=== PATIENT | female | born 1935 | race Caucasian/White ===

== ENCOUNTER 2023-01-09 19:57 | Inpatient (IN) | payer MEDICARE ==
[2023-01-09] MEDS ORDERED: IPRATROPIUM-ALBUTEROL 3 ML NEB INHALATION PRN (20:13)
[2023-01-09] MEDS ORDERED: ACETAMINOPHEN TAB 325 MG TAB PO PRN (20:13)
[2023-01-09] MEDS ORDERED: HYDROcodone/APAP 5-325MG 1 EACH TAB PO PRN (20:13)
[2023-01-09] MEDS ORDERED: NALOXONE 0.4 MG/ML 1 ML VIAL IVP PRN (20:13)
--- NOTE | 2023-01-09 20:20 | ED ---
General Adult HPI - General Chief complaint: Shortness of Breath Stated complaint: SOB Time Seen by Provider: 01/09/23 20:01 Source: patient, EMS, RN notes reviewed Mode of arrival: EMS Limitations: no limitations - History of Present Illness Initial comments: Patient is a pleasant 7 year old female presenting to the emergency department with concerns for shortness of breath. Onset of symptoms was a couple weeks ago. Patient did have a fall a couple of weeks ago and was diagnosed for fractures. Patient states she went back to the hospital today fractures. Patient states dyspnea has been persistent. No new fall or injury. Patient is very hard of hearing and is a poor historian. Review of Systems ROS Statement: Those systems with pertinent positive or pertinent negative responses have been documented in the HPI. ROS Other: All systems not noted in ROS Statement are negative. Constitutional: Denies: fever Eyes: Denies: eye pain ENT: Denies: ear pain Respiratory: Reports: as per HPI, dyspnea. Denies: cough Cardiovascular: Reports: other (Patient states she does have some left-sided discomfort from the fall) Endocrine: Denies: fatigue Gastrointestinal: Denies: abdominal pain Genitourinary: Denies: dysuria Musculoskeletal: Denies: back pain Skin: Denies: rash Neurological: Denies: weakness Past Medical History Past Medical History: COPD, Diabetes Mellitus, Thyroid Disorder Past Surgical History: Adenoidectomy, Cholecystectomy, Hysterectomy Past Psychological History: No Psychological Hx Reported Smoking Status: Never smoker Past Alcohol Use History: None Reported Past Drug Use History: None Reported General Exam Limitations: no limitations General appearance: alert, in no apparent distress Head exam: Present: atraumatic, normocephalic Eye exam: Present: normal appearance Neck exam: Present: normal inspection. Absent: tenderness Respiratory exam: Present: wheezes, decreased breath sounds Cardiovascular Exam: Present: regular rate, normal rhythm GI/Abdominal exam: Absent: tenderness Extremities exam: Present: normal inspection. Absent: tenderness, pedal edema, calf tenderness Neurological exam: Present: alert Psychiatric exam: Present: normal affect, normal mood Skin exam: Present: normal color Course Vital Signs 01/09/23 20:00 Temperature 98.0 F Pulse Rate 72 Respiratory 18 Rate Blood Pressure 108/78 O2 Sat by Pulse 96 Oximetry Medical Decision Making - Medical Decision Making Was pt. sent in by a medical professional or institution (, PA, STEEL M[employer]TER, urgent care, hospital, or [place] health [place] facility...) When possible be specific @ -Patient was sent from [facility]. Did you speak to anyone other than the patient for history (EMS, parent, family, police, friend...)? What history was obtained from this source @ -No Did you review nursing and triage notes (agree or disagree)? Why? @ -I reviewed and agree with nursing and triage notes Were old charts reviewed (outside hosp., previous admission, EMS record, old EKG, old radiological studies, urgent care reports/EKG's, [place] health care facility records)? Report findings @ -Chart from [facility] was reviewed. Differential Diagnosis (chest pain, altered mental status, abdominal pain women, abdominal pain men, vaginal bleeding, weakness, fever, dyspnea, syncope, headache, dizziness, GI bleed, back pain, seizure, CVA, palpatations, mental health, musculoskeletal)? @ -Differential Dyspnea: Coronary syndrome, arrhythmia, tamponade, asthma, COPD, pulmonary embolism, pneumonia, pneumothorax, pulmonary effusion, anaphylaxis, diabetic ketoacidosis, flailed chest, pulmonary contusion, diaphragmatic rupture, anemia, sherri romuscular, this is not meant to be an all-inclusive list. EKG interpreted by me (3pts min.). @ -As above X-rays interpreted by me (1pt min.). @ -None done CT interpreted by me (1pt min.). @ -None done U/S interpreted by me (1pt. min.). @ -None done What testing was considered but not performed or refused? (CT, X-rays, U/S, labs)? Why? @ -None What meds were considered but not given or refused? Why? @ -None Did you discuss the management of the patient with other professionals (professionals i.e. DrReynaldo, PA, STEEL MELTER, lab, RT, psych nurse, social media marketing manager, stamp press operator, teacher, penal officer, family independence case manager)? Give summary @ -Case was discussed with practitioner Roro Blum, who will admit covering for Dr. Albrecht, who admits for Dr. Tate. Was smoking cessation discussed for >3mins.? @ -No Was critical care preformed (if so, how long)? @ -No Were there social determinants of health that impacted care today? How? (Homelessness, low income, unemployed, alcoholism, drug addiction, transportation, low edu. Level, literacy, decrease access to med. care, snf, rehab)? @ -No Was there de-escalation of care discussed even if they declined (Discuss DNR or withdrawal of care, Hospice)? DNR status @ -No What co-morbidities impacted this encounter? (DM, HTN, Smoking, COPD, CAD, Cancer, CVA, ARF, Chemo, Hep., AIDS, mental health diagnosis, sleep apnea, morbid obesity)? @ -None Was patient admitted / discharged? Hospital course, mention meds given and route, prescriptions, significant lab abnormalities, going to OR and other p ertinent info. @ -Patient is made aware of plan. Patient will be admitted with pulmonary consult. Patient does have rib fractures however these are 2 weeks old. Undiagnosed new problem with uncertain prognosis? @ -No Drug Therapy requiring intensive monitoring for toxicity (Heparin, Nitro, Insulin, Cardizem)? @ -No Were any procedures done? @ -No Diagnosis/symptom? @ -COPD Acute, or Chronic, or Acute on Chronic? @ -Acute on chronic Uncomplicated (without systemic symptoms) or Complicated (systemic symptoms)? @ -default Side effects of treatment? @ -No Exacerbation, Progression, or Severe Exacerbation? @ -Exacerbation Poses a threat to life or bodily function? How? (Chest pain, [place], [place], pneumonia, PE, COPD, DKA, ARF, appy, cholecystitis, CVA, Diverticulitis, Homicidal, Suicidal, threat to staff... and all critical care pts) @ -No Disposition Clinical Impression: Acute exacerbation of chronic obstructive pulmonary disease, Pleural effusion Disposition: ADMITTED IP TO THIS HOSP Is patient prescribed a controlled substance at d/c from ED?: No Referrals: Balwinder Tate MD [Primary Care Provider] - 1-2 days Time of Disposition: 20:19
[2023-01-09 21:43] LABS: Glucose,Whole Blood 98 mg/dL (70-110)
[2023-01-10] MEDS: methylPREDNISolone SOD SUCCI 125 MG/2 ML VIAL IV SCH ×5 (00:34→23:31)
[2023-01-10] MEDS ORDERED: DEXTROSE 50% SYRINGE 50 ML IVP PRN ×4 (06:03→10:34)
--- NOTE | 2023-01-10 06:10 | P.CNPUL ---
History of Present Illness Consult date: 01/10/23 Requesting physician: Matthew Valero Reason for consult: pleural effusion, abnormal CXR/CT Chief complaint: Fall sustaining rib fractures History of present illness: I am seeing this patient in new consultation today 01/10/2023 after he was transferred from [facility] for progressively worsening shortness of breath and recent fall sustaining multiple left-sided rib fracture. Patient is an 87-year-old female with past medical history significant for COPD, diabetes mellitus, hypothyroidism, and is a remote ex-smoker. Her PCP is Dr. Tate out of [place]. Apparently, a little bit over 2 weeks ago, the patient was sleeping when she rolled out of bed and fell on the ground. She sustained multiple left sided rib fractures and originally presented to [facility] back on December 23. She was reportedly discharged home. Patient returned back to [facility] yesterday for complaints of progressively worsening shortness of breath. A CT of the chest done at outside facility showed acute segmental fractures of the left fourth and fifth ribs with additional mildly displaced acute fractures the left lateral 6 through 10th ribs. No pneumothorax. There was a large left-sided pleural effusion and associated atelectasis. There is also patchy right upper lobe airspace opacity likely representing atelectasis. A trace pericardial effusion with mild cardiomegaly. Moderate size hiatal hernia. And a stable left adrenal gland nodule measuring 2.8 cm. Patient denies any new falls in the last couple weeks. She has become progressively more short of breath. Admits left lateral/posterior back pain. Denies fevers. Admits occasional nonproductive cough. Denies hemoptysis.. CBC at outside facility showed a WBC count of 6.8, hemoglobin of 12.6, hematocrit 40.9, plate lets of 309. BMP from outside facility shows sodium 141, potassium 3.9, chloride 106, serum bicarbonate 32, BUN 29, creatinine 1.1, glucose 111. NT- probnp was 2620. Procalcitonin level 0.06. Lactic acid level I.1. At our facility the patient was negative for influenza, RSV, COVID-19. She is currently sitting up in bed, on 3 L/m nasal cannula, in no acute distress. Patient is not oxygen dependent at baseline. She is wheezing on auscultation. Patient has been started on a combination of DuoNeb's, budesonide, formoterol, and IV Solu-Medrol. Her granddaughter is at bedside, and I answered all their questions. Patient is being monitored on the general medical floor. Review of Systems REVIEW OF SYSTEMS: CONSTITUTIONAL: Denies any recent significant weight loss or weight gain. EYES: Denies change in vision. EARS, NOSE, MOUTH, THROAT: Denies headaches, denies sore throat. CARDIOVASCULAR: Denies chest pain, palpitations or syncopal episodes. RESPIRATORY: See HPI GASTROINTESTINAL: Denies change in appetite, abdominal pain, nausea and vomiting, or diarrhea GENITOURINARY: Denies hematuria, denies infections. MUSKULOSKELETAL: Denies pain, denies swelling. INTEGUMENTARY: Denies rash, denies eczema. NEUROLOGICAL: Denies recent memory loss, no recent seizure activity. PSYCHIATRIC: Denies anxiety, denies depression. HEMATOLOGIC/LYMPHATIC: Denies anemia, denies enlarged lymph node Past Medical History Past Medical History: COPD, Diabetes Mellitus, Thyroid Disorder Additional Past Medical History / Comment(s): Hard of hearing History of Any Multi-Drug Resistant Organisms: None Reported Past Surgical History: Adenoidectomy, Cholecystectomy, Hysterectomy Past Anesthesia/Blood Transfusion Reactions: No Reported Reaction Past Psychological History: No Psychological Hx Reported Smoking Status: Never smoker Past Alcohol Use History: None Reported Past Drug Use History: None Reported Medications and Allergies Home Medications Medication Instructions Recorded Confirmed Type Albuterol Nebulized [Ventolin 2.5 mg INHALATION RT-QID PRN 01/09/23 01/09/23 History Nebulized] Alendronate Sodium [Fosamax] 70 mg PO SANTILLAN 01/09/23 01/09/23 History Aspirin EC [Ecotrin Low Dose] 81 mg PO BID 01/09/23 01/09/23 History Calcium Carbonate [Calcium] 600 mg PO BID 01/09/23 01/09/23 History Eye Health Complex Supplement 1 tab PO DAILY 01/09/23 01/09/23 History Furosemide [Lasix] 40 mg PO DAILY 01/09/23 01/09/23 History Ibuprofen [Motrin] 600 mg PO TID-W/MEALS 01/09/23 01/09/23 History Insulin Aspart [NovoLOG Flexpen] 30 - 40 units SQ TID-W/MEALS 01/09/23 01/09/23 History Insulin Glargine,Hum.rec.anlog 35 unit SQ DAILY 01/09/23 01/09/23 History [Deonnaaglshady Gann U-100] Levothyroxine Sodium [Synthroid] 50 mcg PO DAILY 01/09/23 01/09/23 History Lovastatin [Mevacor] 20 mg PO W/SUPPER 01/09/23 01/09/23 History Omeprazole 80 mg PO BID 01/09/23 01/09/23 History PARoxetine HCL 40 mg PO DAILY 01/09/23 01/09/23 History Pedi Multivit No.25/Folic Acid 1 tab PO BID-W/MEALS 01/09/23 01/09/23 History [Flintstones Multivit Chew Tab] Allergies Allergy/AdvReac Type Severity Reaction Status Date / Time adenosine Allergy Anaphylaxis Verified 01/09/23 21:20 flu vaccine Allergy Anaphylaxis Uncoded 01/09/23 20:17 Physical Exam Vitals: Vital Signs Temp Pulse Pulse Resp BP BP Pulse Ox 01/10/23 00:19 98.1 F 70 20 132/77 93 L 01/10/23 00:00 20 01/09/23 20:15 22 01/09/23 20:00 98.0 F 72 18 108/78 96 Intake and Output 01/09/23 01/09/23 01/10/23 14:59 22:59 06:59 Intake Total 240 Output Total 200 Balance 40 Intake: Oral 240 Output: Urine 200 Other: Voiding Method Indwelling Catheter Weight 81.647 kg 81.647 kg GENERAL EXAM: Alert, 87-year-old white female, comfortable in no apparent distress. HEAD: Normocephalic and atraumatic EYES: Normal reaction of pupils, equal size. NOSE: Clear with pink turbinates. THROAT: No erythema or exudates. NECK: No masses, no JVD. CHEST: No chest wall deformity. No crepitus or gross deformities LUNGS: Diminished left lower lung sounds. X-ray wheezes heard throughout. On 3 L/m nasal cannula. No conversational dyspnea or accessory muscle use.. CVS: S1 and S2 normal with no audible murmur, regular rhythm. No extra heart sounds ABDOMEN: No hepatosplenomegaly, active bowel sounds, no guarding or rigidity. SPINE: No scoliosis or deformity SKIN: No rashes CENTRAL NERVOUS SYSTEM: No focal deficits, tone is normal in all 4 extremities. EXTREMITIES: There is no peripheral edema, clubbing, or cyanosis. Peripheral pulses are intact. Results - Diagnostic Findings CT scan - chest: image reviewed Assessment and Plan Assessment: Fall sustaining acute segmental fractures of the left fourth and fifth ribs with additional mildly displaced acute fractures the left lateral 6 through 10th ribs. No pneumothorax. There was a large left-sided pleural effusion and associated atelectasis likely representing hemothorax. Acute COPD exacerbation Acute hypoxemic respiratory failure, secondary to above Diabetes mellitus, insulin-dependent Hyperlipidemia Hypothyroidism Moderate size hiatal hernia Obesity with a BMI of 31.9 kg/m Remote ex-smoker Plan: Patient's medications, labs, chest CT were reviewed Continue supplemental oxygen Obtain chest ultrasound for possible thoracentesis. I will discuss this with Dr. Sanches later this morning. Not on any anticoagulants Start patient on a combination of DuoNeb's, budesonide inhalation, formoterol inhalation, and IV Solu-Medrol. Procalcitonin level 0.06. Negative for influenza, RSV, COVID-19. Encourage incentive spirometer We will continue to follow, and further recommendations are forthcoming I have personally seen and examined the patient, performed the documentation and the assessment and plan as written. Number of minutes spent on the visit:20 Time with Patient: Greater than 30
[2023-01-10 07:16] LABS: Glucose,Whole Blood 198 mg/dL (70-110)
[2023-01-10] MEDS: FORMOTEROL FUMARATE 20 MCG/2 ML NEBU INHALATION SCH ×2 (07:44→20:48)
[2023-01-10] MEDS: IPRATROPIUM-ALBUTEROL 3 ML NEB INHALATION SCH ×4 (07:44→20:46)
[2023-01-10] MEDS: BUDESONIDE 1 MG/2 ML NEBU INHALATION SCH ×2 (07:44→20:46)
--- NOTE | 2023-01-10 08:03 | US ---
EXAMINATION TYPE: US chest DATE OF EXAM: 01/10/2023 COMPARISON: CT CLINICAL INDICATION: Female, 87 years old with history of left pleural effusion; Left pleural effusio n TECHNIQUE: Targeted ultrasound of the posterior lower left hemithorax EXAM MEASUREMENTS: Left Pleural Effusion pocket size: 8.5 cm Left skin surface to fluid distance: 4.6 cm Left side marked for possible thoracentesis outside the dept. Pulmonologists are able to review the images in the patient?s EMR. IMPRESSIONS: Moderate sized left pleural effusion.
[2023-01-10] MEDS: INSULIN DETEMIR (LEVEMIR) 100 UNIT/ML SYR SQ SCH (08:53)
[2023-01-10] MEDS: INSULIN ASPART (NovoLOG) 100 UNIT/ML VIAL SQ SCH ×6 (08:57→21:05)
[2023-01-10] MEDS ORDERED: NON FORMULARY DRUG (Insulin Glargine,Hum.Rec.Anlog [Basaglar Kwikpen U-100] 100 UNIT/ML In SQ SCH (10:45)
[2023-01-10] MEDS ORDERED: ENOXAPARIN 40 MG/0.4 ML SYRINGE SQ SCH (10:45)
[2023-01-10 12:00] LABS: Glucose,Whole Blood 392 mg/dL (70-110)
[2023-01-10 12:00] LABS: Glucose,Whole Blood 324 mg/dL (70-110)
[2023-01-10] MEDS: LEVOTHYROXINE 50 MCG TAB PO SCH (12:17)
[2023-01-10] MEDS: PANTOPRAZOLE 40 MG TABLET PO SCH ×2 (12:17→21:05)
[2023-01-10] MEDS ORDERED: IBUPROFEN 600 MG TAB PO SCH (12:30)
[2023-01-10] MEDS: PARoxetine 20 MG TAB PO SCH (12:34)
--- NOTE | 2023-01-10 14:44 | XR ---
EXAMINATION TYPE: XR chest 1V portable DATE OF EXAM: 01/10/2023 2:38 PM COMPARISON: Chest radiograph 01/09/2023 TECHNIQUE: XR chest 1V portable Portable AP radiograph of the chest. CLINICAL INDICATION:Female, 87 years old with history of Post left thoracentesis; FINDINGS: Lungs/Pleura: Decreased small left pleural effusion. No focal consolidation or pneumothorax. Pulmonary vascularity: Pulmonary vascular congestion. Heart/mediastinum: Cardiomediastinal silhouette is enlarged and stable. Atherosclerotic calcificatio ns are seen in the aorta. Musculoskeletal: No acute osseous pathology. IMPRESSION: 1. Decreased small left pleural effusion status post thoracentesis. No pneumothorax. 2. Cardiomegaly with pulmonary vascular congestion.
[2023-01-10 17:10] LABS: Glucose,Whole Blood 353 mg/dL (70-110)
[2023-01-10] MEDS: ATORVASTATIN 10 MG TAB PO SCH (17:51)
[2023-01-10] MEDS: ASPIRIN 81 MG PO SCH ×2 (18:02→20:20)
[2023-01-10] MEDS: NAPROXEN 250 MG TAB PO SCH ×2 (18:02→21:05)
[2023-01-10] MEDS: MULTIVITAMINS, THERA 1 EACH TAB PO SCH (18:02)
--- NOTE | 2023-01-10 20:22 | PCN ---
PROCEDURE NOTE This is a Pulmonary/Critical Care procedure. PROCEDURE PERFORMED: Left-sided thoracentesis. PREOPERATIVE DIAGNOSES: 1. Left pleural effusion. 2. Traumatic hemothorax. 3. Left chest trauma. POSTOPERATIVE DIAGNOSES: 1. Left pleural effusion. 2. Traumatic hemothorax. 3. Left chest trauma. CHIP BIN CONVEYOR TENDER: Dr. Cristina Gooden. There were informed consent and universal time-out. The patient's procedure took place in the patient's room, #525. The posterior chest was marked by ultrasound. DESCRIPTION OF PROCEDURE: Indications: Left pleural effusion, traumatic hemothorax, and left chest trauma. A time-out was completed verifying correct patient, procedure, site, positioning , and implant(s) or special equipment if applicable. Ultrasound guidance was used, and appropriate fluid pocket was identified and marked. The patient was positioned, prepped and draped in usual sterile fashion. Lidocaine was used to anesthetize the area. A Thoracentesis catheter was introduced into the left pleural space, and roughly 1200 mL of bloody fluid was removed from the left pleural space. The patient tolerated the procedure well. There was no immediate complication. A chest x-ray was ordered to rule out pneumothorax. The fluid was sent for analysis including cytology, microbiology, and chemistry. MMODL / IJN: [id number] /
[2023-01-10 20:50] LABS: Glucose,Whole Blood 213 mg/dL (70-110)
--- NOTE | 2023-01-10 20:54 | P.HPIM ---
History of Present Illness H&P Date: 01/10/23 Chief Complaint: Short of breath This is a pleasant 87-year-old patient who follows with Dr. Tate. History some pain by the Dr. Storm at the bedside. Lives with the patient. On December 23 patient had rolled out of bed and as a result had 4 fractured ribs. Patient subsequently has become more short of breath. Decreased appetite. No fever and chills. Does wear diapers. Does not take any oxygen at home. Became more short of breath. Was transferred here from [facility]. Having pain at the fracture site. Patient is scheduled for possible paracentesis today. Hemothorax suspected Review of systems: GEN.: Tired EYES: None HEENT: None NECK: None RESPIRATORY: Short of breath CARDIOVASCULAR: None GASTROINTESTINAL: None GENITOURINARY: None MUSCULOSKELETAL: Joint pains LYMPHATICS: None HEMATOLOGICAL: None PSYCHIATRY: None NEUROLOGICAL: Uses a walker Social history: Daughter Dotty lives with her. Does use a walker. Nonsmoker. Physical examination: VITAL SIGNS: 98, 72, 18, 108/78, 96% on 4 L upon presentation GENERAL: BMI 31.9, reclining bed awake slightly short of breath. EYES: Pupils equal. Conjunctiva normal. HEENT: External appearance of nose and ears normal, oral cavity grossly normal very hard of hearing. NECK: JVD unable to assess; masses not palpable. HEART: First and second heart sounds are normal; no edema. LUNGS: Respiratory rate increased; decreased breath sounds. ABDOMEN: Soft, nontender, liver spleen not palpable, no masses palpable. PSYCH: [Able to answer simple questions l. MUSCULOSKELETAL:No Clubbing/cyanosis;muscles-grossly intact. Left chest wall tenderness NEUROLOGICAL: Cranial nerves grossly intact; no facial asymmetry, power and sensation grossly intact. LYMPHATICS: No lymph nodes palpable in the axilla and neck INVESTIGATIONS, reviewed in the clinical context: Influenza type A, B, RSV, COVID-19: Not detected Assessment and plan: -Large left-sided hemothorax secondary to rib fracture secondary to fall. Pending thoracentesis -Acute hypoxic respiratory failure secondary to hemothorax 4 L nasal cannula -Left-sided rib fracture secondary to fall Naproxen. -Hypothyroid Synthroid 50 g a day -Hyperlipidemia Mevacor 20 mg with supper -Anxiety Paxil 40 mg a day -GERD Omeprazole -Diabetes mellitus type chronically on insulin Insulin Lantus. Follow Accu-Cheks and sliding scale -DO NOT RESUSCITATE. Daughter Dotty does decision-making Care was discussed with the patient. And the daughter the bedside. Questions answered. Because of suspected hemothorax hold Lovenox. SCDs Past Medical History Past Medical History: COPD, Diabetes Mellitus, Thyroid Disorder Additional Past Medical History / Comment(s): Hard of hearing History of Any Multi-Drug Resistant Organisms: None Reported Past Surgical History: Adenoidectomy, Cholecystectomy, Hysterectomy Past Anesthesia/Blood Transfusion Reactions: No Reported Reaction Past Psychological History: No Psychological Hx Reported Smoking Status: Never smoker Past Alcohol Use History: None Reported Past Drug Use History: None Reported Medications and Allergies Home Medications Medication Instructions Recorded Confirmed Type Albuterol Nebulized [Ventolin 2.5 mg INHALATION RT-QID PRN 01/09/23 01/09/23 History Nebulized] Alendronate Sodium [Fosamax] 70 mg PO SANTILLAN 01/09/23 01/09/23 History Aspirin EC [Ecotrin Low Dose] 81 mg PO BID 01/09/23 01/09/23 History Calcium Carbonate [Calcium] 600 mg PO BID 01/09/23 01/09/23 History Eye Health Complex Supplement 1 tab PO DAILY 01/09/23 01/09/23 History Furosemide [Lasix] 40 mg PO DAILY 01/09/23 01/09/23 History Ibuprofen [Motrin] 600 mg PO TID-W/MEALS 01/09/23 01/09/23 History Insulin Aspart [NovoLOG Flexpen] 2 - 3 units SQ TID-W/MEALS PRN 01/09/23 01/10/23 History Insulin Glargine,Hum.rec.anlog 35 unit SQ DAILY 01/09/23 01/09/23 History [Basaglar Kwikpen U-100] Levothyroxine Sodium [Synthroid] 50 mcg PO DAILY 01/09/23 01/09/23 History Lovastatin [Mevacor] 20 mg PO W/SUPPER 01/09/23 01/09/23 History Omeprazole 80 mg PO BID 01/09/23 01/09/23 History PARoxetine HCL 40 mg PO DAILY 01/09/23 01/09/23 History Pedi Multivit No.25/Folic Acid 1 tab PO BID-W/MEALS 01/09/23 01/09/23 History [Flintstones Multivit Chew Tab] Allergies Allergy/AdvReac Type Severity Reaction Status Date / Time adenosine Allergy Anaphylaxis Verified 01/09/23 21:20 flu vaccine Allergy Anaphylaxis Uncoded 01/09/23 20:17 Physical Exam Vitals: Vital Signs Temp Pulse Pulse Resp BP BP Pulse Ox 01/10/23 08:08 80 01/10/23 08:00 97.7 F 80 18 172/77 91 L 01/10/23 07:56 80 01/10/23 07:44 76 01/10/23 07:38 98.5 F 80 92 H 127/72 01/10/23 00:19 98.1 F 70 20 132/77 93 L 01/10/23 00:00 20 01/09/23 23:30 72 16 141/58 96 01/09/23 22:30 77 17 130/71 97 01/09/23 21:30 71 16 155/74 97 01/09/23 20:30 98.6 F 71 18 165/89 96 01/09/23 20:15 22 01/09/23 20:00 98.0 F 72 18 108/78 96 Intake and Output 01/09/23 01/10/23 01/10/23 22:59 06:59 14:59 Intake Total 360 Output Total 450 500 Balance -450 -140 Intake: Oral 360 Output: Urine 450 500 Other: Voiding Method Indwelling Catheter Indwelling Catheter Weight 81.647 kg 81.647 kg Results Labs: Abnormal Lab Results - Last 24 Hours (Table) 01/10/23 Range/Units 06:57 POC Glucose (mg/dL) 198 H (70-110) mg/dL Thrombosis Risk Factor Assmnt - Choose All That Apply Each Factor Represents 1 point: Abnormal pulmonary function (COPD), Obesity (BMI >25) Each Risk Factor Represents 3 Points: Age 75 years or older Thrombosis Risk Factor Assessment Total Risk Factor Score: 5 Thrombosis Risk Factor Assessment Level: High Risk
[2023-01-10] MEDS: CALCIUM CARBONATE 500 MG CHEWABLE PO SCH (21:05)
[2023-01-11 04:37] LABS: Appearance,BF Bloody (Clear)
[2023-01-11] MEDS: LEVOTHYROXINE 50 MCG TAB PO SCH (06:06)
[2023-01-11] MEDS: methylPREDNISolone SOD SUCCI 125 MG/2 ML VIAL IV SCH ×4 (06:06→23:59)
[2023-01-11 06:14] LABS: Glucose, BF Source Pleural fluid; Glucose, Body Fluid 331 mg/dL; LDH, Body Fluid Source Pleural fluid; T. Protein, Body Fluid Source Pleural fluid; Total Protein, Body Fluid 3530 mg/dL
[2023-01-11 06:56] LABS: Glucose,Whole Blood 190 mg/dL (70-110)
[2023-01-11 07:06] LABS: Basophils % (A) 0 %; Eosinophils % (A) 0 %; HCT 38.7 % (34.0-46.0); HGB 12.5 gm/dL (11.4-16.0); Lymphocytes # (A) 0.6 k/uL (1.0-4.8); Lymphocytes % (A) 5 %; MCHC 32.4 g/dL (31.0-37.0); MCV 98.7 fL (80.0-100.0); Mean Platelet Volume 8.1; Monocytes # (A) 0.3 k/uL (0-1.0); Monocytes % (A) 2 %; Neutrophils # (A) 10.5 k/uL (1.3-7.7); Neutrophils % (A) 92 %; Platelet Count 329 k/uL (150-450); RBC 3.92 m/uL (3.80-5.40); RDW 13.4 % (11.5-15.5); WBC 11.4 k/uL (3.8-10.6)
[2023-01-11 07:14] LABS: African American GFR (CKD) 41 (>60 ml/min/1.73 sqM); Anion Gap 6 mmol/L; Blood Urea Nitrogen 44 mg/dL (7-17); Calcium 9.2 mg/dL (8.4-10.2); Carbon Dioxide 29 mmol/L (22-30); Chloride 104 mmol/L (98-107); Glucose 199 mg/dL (74-99); Non-African American GFR(CKD) 35 (>60 ml/min/1.73 sqM); Potassium 4.5 mmol/L (3.5-5.1); Sodium 139 mmol/L (137-145)
[2023-01-11] MEDS: BUDESONIDE 1 MG/2 ML NEBU INHALATION SCH ×2 (08:21→20:33)
[2023-01-11] MEDS: IPRATROPIUM-ALBUTEROL 3 ML NEB INHALATION SCH ×4 (08:21→20:33)
[2023-01-11] MEDS: FORMOTEROL FUMARATE 20 MCG/2 ML NEBU INHALATION SCH ×2 (08:42→20:33)
[2023-01-11] MEDS: INSULIN DETEMIR (LEVEMIR) 100 UNIT/ML SYR SQ SCH (09:05)
[2023-01-11] MEDS: PARoxetine 20 MG TAB PO SCH (09:06)
[2023-01-11] MEDS: CALCIUM CARBONATE 500 MG CHEWABLE PO SCH ×2 (09:06→21:11)
[2023-01-11] MEDS: ASPIRIN 81 MG PO SCH ×2 (09:06→21:10)
[2023-01-11] MEDS: MULTIVITAMINS, THERA 1 EACH TAB PO SCH (09:07)
[2023-01-11] MEDS: PANTOPRAZOLE 40 MG TABLET PO SCH ×2 (09:07→21:11)
[2023-01-11] MEDS: NAPROXEN 250 MG TAB PO SCH ×3 (09:11→21:10)
[2023-01-11] MEDS: INSULIN ASPART (NovoLOG) 100 UNIT/ML VIAL SQ SCH ×7 (09:18→20:59)
[2023-01-11 11:45] LABS: Glucose,Whole Blood 282 mg/dL (70-110)
--- NOTE | 2023-01-11 11:55 | P.PN ---
Subjective Progress Note Date: 01/11/23 I am seeing this patient in new consultation today 01/10/2023 after he was transferred from [facility] for progressively worsening shortness of breath and recent fall sustaining multiple left-sided rib fracture. Patient is an 87-year-old female with past medical history significant for COPD, diabetes mellitus, hypothyroidism, and is a remote ex-smoker. Her PCP is Dr. Tate out of [place]. Apparently, a little bit over 2 weeks ago, the patient was sleeping when she rolled out of bed and fell on the ground. She sustained multiple left sided rib fractures and originally presented to [facility] back on December 23. She was reportedly discharged home. Patient returned back to [facility] yesterday for complaints of progressively worsening shortness of breath. A CT of the chest done at outside facility showed acute segmental fractures of the left fourth and fifth ribs with additional mildly displaced acute fractures the left lateral 6 through 10th ribs. No pneumothorax. There was a large left-sided pleural effusion and associated atelectasis. There is also patchy right upper lobe airspace opacity likely representing atelectasis. A trace pericardial effusion with mild cardiomegaly. Moderate size hiatal hernia. And a stable left adrenal gland nodule measuring 2.8 cm. Patient denies any new falls in the last couple weeks. She has become progressively more short of breath. Admits left lateral/posterior back pain. Denies fevers. Admits occasional nonproductive cough. Denies hemoptysis.. CBC at outside facility showed a WBC count of 6.8, hemoglobin of 12.6, hematocrit 40.9, platelets of 309. BMP from outside facility shows sodium 141, potassium 3.9, chloride 106, serum bicarbonate 32, BUN 29, creatinine 1.1, glucose 111. NT- probnp was 2620. Procalcitonin level 0.06. Lactic acid level I.1. At our facility the patient was negative for influenza, RSV, COVID-19. She is currently sitting up in bed, on 3 L/m nasal cannula, in no acute distress. Patient is not oxygen dependent at baseline. She is wheezing on auscultation. Patient has been started on a combination of DuoNeb's, budesonide, formoterol, and IV Solu-Medrol. Her granddaughter is at bedside, and I answered all their questions. Patient is being monitored on the general medical floor. The patient is seen today 01/10/2023 in follow-up on the regular medical floor. She is resting comfortably in bed. Maintaining good O2 saturations in the 90s on 3 L/m per nasal cannula. No IV fluids. She did undergo a left-sided thoracentesis yesterday with 1.2 L of bloody fluid returned. All of chest x-ray revealed decreased small left pleural effusion. No evidence of pneumothorax. There is cardiomegaly with pulmonary vascular congestion. Exudate with a total protein of 3.5 and a LDH of 223. White count 11.4. Hemoglobin 12.5. Platelets 329. Sodium 139. Potassium 4.5. Bicarb 29. BUN 44. Creatinine 1.36. Glucose 199. TSH 0.338. T4 pending. He is continued on DuoNeb inhalations, Pulmicort and Perforomist inhalations, IV Solu-Medrol. Objective - Vital Signs Vital signs: Vital Signs Temp 98.5 F 01/11/23 08:00 Pulse 87 01/11/23 08:37 Resp 16 01/11/23 08:00 BP 152/89 01/11/23 08:00 Pulse Ox 93 L 01/11/23 08:00 FiO2 Intake & Output 01/10/23 01/11/23 01/11/23 18:59 06:59 18:59 Output Total 500 120 Balance -500 -120 Output: Urine 500 120 Other: Voiding Method Indwelling Catheter Indwelling Catheter Indwelling Catheter # Bowel Movements 2 1 - Exam GENERAL EXAM: Alert, pleasant 87-year-old female, on 3 L nasal cannula, comfortable in no apparent distress. HEAD: Normocephalic and atraumatic EYES: Normal reaction of pupils, equal size. NOSE: Clear with pink turbinates. THROAT: No erythema or exudates. NECK: No masses, no JVD. CHEST: No chest wall deformity. No crepitus or gross deformities LUNGS: Expiratory wheezes heard throughout. No conversational dyspnea. CVS: S1 and S2 normal with no audible murmur, regular rhythm. No extra heart sounds ABDOMEN: No hepatosplenomegaly, active bowel sounds, no guarding or rigidity. SPINE: No scoliosis or deformity SKIN: No rashes CENTRAL NERVOUS SYSTEM: No focal deficits, tone is normal in all 4 extremities. EXTREMITIES: There is no peripheral edema, clubbing, or cyanosis. Peripheral pulses are intact. - Labs CBC & Chem 7: 01/11/23 06:34 01/11/23 06:34 Labs: Abnormal Lab Results - Last 24 Hours (Table) 01/10/23 01/10/23 01/10/23 Range/Units 11:58 11:59 14:00 WBC (3.8-10.6) k/uL Neutrophils # (1.3-7.7) k/uL Lymphocytes # (1.0-4.8) k/uL BUN (7-17) mg/dL Creatinine (0.52-1.04) mg/dL Glucose (74-99) mg/dL POC Glucose (mg/dL) 392 H 324 H (70-110) mg/dL Hemoglobin A1c (<=6.0) % TSH (0.465-4.680) mIU/L Fluid Appearance Bloody A (Clear) 01/10/23 01/10/23 01/11/23 Range/Units 17:08 20:50 06:34 WBC (3.8-10.6) k/uL Neutrophils # (1.3-7.7) k/uL Lymphocytes # (1.0-4.8) k/uL BUN (7-17) mg/dL Creatinine (0.52-1.04) mg/dL Glucose (74-99) mg/dL POC Glucose (mg/dL) 353 H 213 H (70-110) mg/dL Hemoglobin A1c 8.0 H (<=6.0) % TSH (0.465-4.680) mIU/L Fluid Appearance (Clear) 01/11/23 01/11/23 01/11/23 Range/Units 06:34 06:34 06:53 WBC 11.4 H (3.8-10.6) k/uL Neutrophils # 10.5 H (1.3-7.7) k/uL Lymphocytes # 0.6 L (1.0-4.8) k/uL BUN 44 H (7-17) mg/dL Creatinine 1.36 H (0.52-1.04) mg/dL Glucose 199 H (74-99) mg/dL POC Glucose (mg/dL) 190 H (70-110) mg/dL Hemoglobin A1c (<=6.0) % TSH 0.338 L (0.465-4.680) mIU/L Fluid Appearance (Clear) 01/11/23 Range/Units 11:42 WBC (3.8-10.6) k/uL Neutrophils # (1.3-7.7) k/uL Lymphocytes # (1.0-4.8) k/uL BUN (7-17) mg/dL Creatinine (0.52-1.04) mg/dL Glucose (74-99) mg/dL POC Glucose (mg/dL) 282 H (70-110) mg/dL Hemoglobin A1c (<=6.0) % TSH (0.465-4.680) mIU/L Fluid Appearance (Clear) Assessment and Plan Assessment: Fall sustaining acute segmental fractures of the left fourth and fifth ribs with additional mildly displaced acute fractures the left lateral 6 through 10th ribs. No pneumothorax. There was a large left-sided pleural effusion and associated atelectasis likely representing hemothorax. Status post left-sided thoracentesis on 01/10/2023 with 1.2 L of bloody fluid returned. Exudate. Total protein 3.5. LDH 223. Cytology pending. Acute COPD exacerbation Acute hypoxemic respiratory failure, secondary to above Diabetes mellitus, insulin-dependent Hyperlipidemia Hypothyroidism Moderate size hiatal hernia Obesity with a BMI of 31.9 kg/m Remote ex-smoker Plan: The patient was seen and evaluated Medications and labs reviewed Currently on 3 L nasal cannula Titrate the FiO2 as tolerated Cytology pending Continue bronchodilators, steroids Increase her activity as tolerated We will continue to follow This patient was seen independently by the nurse practitioner I have personally seen and examined the patient, performed the documentation and the assessment and plan as written. Number of minutes spent on the visit: 24.
[2023-01-11 12:22] LABS: T4, Free (Free Thyroxine) 1.36 ng/dL (0.78-2.19)
[2023-01-11 16:57] LABS: Glucose,Whole Blood 65 mg/dL (70-110)
[2023-01-11 16:57] LABS: Glucose,Whole Blood 51 mg/dL (70-110)
[2023-01-11 17:14] LABS: Glucose,Whole Blood 76 mg/dL (70-110)
[2023-01-11] MEDS: ATORVASTATIN 10 MG TAB PO SCH (17:34)
[2023-01-11 20:59] LABS: Glucose,Whole Blood 118 mg/dL (70-110)
--- NOTE | 2023-01-11 22:15 | P.PN ---
Progress Note - Text Progress Note Date: 01/11/23 Chief Complaint: Short of breath This is a pleasant 87-year-old patient who follows with Dr. Tate. History some pain by the Dr. Storm at the bedside. Lives with the patient. On December 23 patient had rolled out of bed and as a result had 4 fractured ribs. Patient subsequently has become more short of breath. Decreased appetite. No fever and chills. Does wear diapers. Does not take any oxygen at home. Became more short of breath. Was transferred here from [facility]. Having pain at the fracture site. Patient is scheduled for possible paracentesis today. Hemothorax suspected January 11: Status post left hemothorax paracentesis yesterday. Pain better control. Did tolerate some diet. On 3 L nasal cannula. Resting in bed Active Medications Acetaminophen (Acetaminophen Tab 325 Mg Tab) 650 mg PO Q4HR PRN PRN Reason: Mild Pain or Fever > 100.5 Hydrocodone Bitart/Acetaminophen (Hydrocodone/Apap 5-325mg 1 Each Tab) 1 each PO Q6HR PRN PRN Reason: Moderate to Severe Pain (4-10) Last Admin: 01/09/23 23:11 Dose: 1 each Albuterol/Ipratropium (Ipratropium-Albuterol 3 Ml Neb) 3 ml INHALATION RT-Q2H PRN PRN Reason: Shortness Of Breath Or Wheezing Albuterol/Ipratropium (Ipratropium-Albuterol 3 Ml Neb) 3 ml INHALATION RT-QID [facility] Last Admin: 01/11/23 20:33 Dose: 3 ml Aspirin (Aspirin 81 Mg) 81 mg PO BID [facility] Last Admin: 01/11/23 21:10 Dose: 81 mg Atorvastatin Calcium (Atorvastatin 10 Mg Tab) 10 mg PO W/SUPPER [facility] Last Admin: 01/11/23 17:34 Dose: 10 mg Budesonide (Budesonide 1 Mg/2 Ml Nebu) 1 mg INHALATION RT-BID [facility] Last Admin: 01/11/23 20:33 Dose: 1 mg Calcium Carbonate/Glycine (Calcium Carbonate 500 Mg Chewable) 500 mg PO BID [facility] Last Admin: 01/11/23 21:11 Dose: 500 mg Dextrose/Water (Dextrose 50% Syringe 50 Ml) 25 ml IVP PER PROTOCOL PRN; Protocol PRN Reason: Hypoglycemia Dextrose/Water (Dextrose 50% Syringe 50 Ml) 50 ml IVP PER PROTOCOL PRN; Protocol PRN Reason: Hypoglycemia Formoterol Fumarate (Formoterol Fumarate 20 Mcg/2 Ml Nebu) 20 mcg INHALATION RT-BID [facility] Last Admin: 01/11/23 20:33 Dose: 20 mcg Insulin Aspart (Insulin Aspart (Novolog) 100 Unit/Ml Vial) 0 unit SQ ACHS [facility]; Protocol Last Admin: 01/11/23 20:59 Dose: Not Given Insulin Aspart (Insulin Aspart (Novolog) 100 Unit/Ml Vial) 20 unit SQ AC-TID [facility] Last Admin: 01/11/23 18:55 Dose: 20 unit Insulin Detemir (Insulin Detemir (Levemir) 100 Unit/Ml Syr) 35 unit SQ DAILY@0700 [facility] Last Admin: 01/11/23 09:05 Dose: 35 unit Levothyroxine Sodium (Levothyroxine 50 Mcg Tab) 50 mcg PO 0630 [facility] Last Admin: 01/11/23 06:06 Dose: 50 mcg Methylprednisolone Sodium Succinate (Methylprednisolone Sod Succi 125 Mg/2 Ml Vial) 60 mg IV Q6HR [facility] Last Admin: 01/11/23 18:55 Dose: 60 mg Multivitamins (Multivitamins, Thera 1 Each Tab) 1 each PO W/BRKFST [facility] Last Admin: 01/11/23 09:07 Dose: 1 each Naloxone HCl (Naloxone 0.4 Mg/Ml 1 Ml Vial) 0.2 mg IVP Q2M PRN PRN Reason: Opioid Reversal Naproxen (Naproxen 250 Mg Tab) 250 mg PO TID [facility] Last Admin: 01/11/23 21:10 Dose: 250 mg Pantoprazole Sodium (Pantoprazole 40 Mg Tablet) 40 mg PO BID [facility] Last Admin: 01/11/23 21:11 Dose: 40 mg Paroxetine HCl (Paroxetine 20 Mg Tab) 40 mg PO DAILY [facility] Last Admin: 01/11/23 09:06 Dose: 40 mg Social history: Daughter Dotty lives with her. Does use a walker. Nonsmoker. Physical examination: VITAL SIGNS: 98.6, 72, 16, 116/83, 95% on 3 L GENERAL: A tanning bed, breathing better EYES: Pupils equal. Conjunctiva normal. HEENT: External appearance of nose and ears normal, oral cavity grossly normal very hard of hearing. NECK: JVD unable to assess; masses not palpable. HEART: First and second heart sounds are normal; no edema. LUNGS: Respiratory rate increased; decreased breath sounds. ABDOMEN: Soft, nontender, liver spleen not palpable, no masses palpable. PSYCH: [Able to answer simple questions l. MUSCULOSKELETAL:No Clubbing/cyanosis;muscles-grossly intact. Left chest wall tenderness INVESTIGATIONS, reviewed in the clinical context: January 11: White count 11.4 hemoglobin 12.5 potassium 4.5 creatinine 1.36 Influenza type A, B, RSV, COVID-19: Not detected Assessment and plan: -Large left-sided hemothorax secondary to rib fracture secondary to fall. thoracentesis.-1200 mL of bloody fluid removed on January [address] Sanches -Acute hypoxic respiratory failure secondary to hemothorax 3 L nasal cannula -Left-sided rib fracture secondary to fall Naproxen. -Hypothyroid Synthroid 50 g a day -Hyperlipidemia Mevacor 20 mg with supper -Anxiety Paxil 40 mg a day -GERD Omeprazole -Diabetes mellitus type chronically on insulin, uncontrolled with hypoglycemia Insulin Lantus. Follow Accu-Cheks and sliding scale -DO NOT RESUSCITATE. Daughter Dotty does decision-making Dose of insulin adjusted. Incentive spirometry. Plan for possibility DC tomorrow.
[2023-01-12] MEDS: LEVOTHYROXINE 50 MCG TAB PO SCH (05:22)
[2023-01-12] MEDS: methylPREDNISolone SOD SUCCI 125 MG/2 ML VIAL IV SCH (05:22)
[2023-01-12] MEDS ORDERED: INSULIN DETEMIR (LEVEMIR) 100 UNIT/ML SYR SQ SCH (07:00)
[2023-01-12 07:07] LABS: Glucose,Whole Blood 243 mg/dL (70-110)
[2023-01-12] MEDS: BUDESONIDE 1 MG/2 ML NEBU INHALATION SCH ×2 (07:49→20:54)
[2023-01-12] MEDS: IPRATROPIUM-ALBUTEROL 3 ML NEB INHALATION SCH ×4 (07:50→20:54)
[2023-01-12] MEDS: FORMOTEROL FUMARATE 20 MCG/2 ML NEBU INHALATION SCH ×2 (07:50→20:54)
[2023-01-12] MEDS: INSULIN ASPART (NovoLOG) 100 UNIT/ML VIAL SQ SCH ×3 (09:17→17:26)
[2023-01-12] MEDS: MULTIVITAMINS, THERA 1 EACH TAB PO SCH (09:18)
[2023-01-12] MEDS: CALCIUM CARBONATE 500 MG CHEWABLE PO SCH ×2 (09:27→21:31)
[2023-01-12] MEDS: NAPROXEN 250 MG TAB PO SCH ×3 (09:27→21:30)
[2023-01-12] MEDS: ASPIRIN 81 MG PO SCH ×2 (09:27→21:30)
[2023-01-12] MEDS: PANTOPRAZOLE 40 MG TABLET PO SCH ×2 (09:29→21:31)
[2023-01-12] MEDS: PARoxetine 20 MG TAB PO SCH (10:54)
--- NOTE | 2023-01-12 11:52 | P.PN ---
Subjective Progress Note Date: 01/12/23 I am seeing this patient in new consultation today 01/10/2023 after he was transferred from [facility] for progressively worsening shortness of breath and recent fall sustaining multiple left-sided rib fracture. Patient is an 87-year-old female with past medical history significant for COPD, diabetes mellitus, hypothyroidism, and is a remote ex-smoker. Her PCP is Dr. Tate out of [place]. Apparently, a little bit over 2 weeks ago, the patient was sleeping when she rolled out of bed and fell on the ground. She sustained multiple left sided rib fractures and originally presented to [facility] back on December 23. She was reportedly discharged home. Patient returned back to [facility] yesterday for complaints of progressively worsening shortness of breath. A CT of the chest done at outside facility showed acute segmental fractures of the left fourth and fifth ribs with additional mildly displaced acute fractures the left lateral 6 through 10th ribs. No pneumothorax. There was a large left-sided pleural effusion and associated atelectasis. There is also patchy right upper lobe airspace opacity likely representing atelectasis. A trace pericardial effusion with mild cardiomegaly. Moderate size hiatal hernia. And a stable left adrenal gland nodule measuring 2.8 cm. Patient denies any new falls in the last couple weeks. She has become progressively more short of breath. Admits left lateral/posterior back pain. Denies fevers. Admits occasional nonproductive cough. Denies hemoptysis.. CBC at outside facility showed a WBC count of 6.8, hemoglobin of 12.6, hematocrit 40.9, platelets of 309. BMP from outside facility shows sodium 141, potassium 3.9, chloride 106, serum bicarbonate 32, BUN 29, creatinine 1.1, glucose 111. NT- probnp was 2620. Procalcitonin level 0.06. Lactic acid level I.1. At our facility the patient was negative for influenza, RSV, COVID-19. She is currently sitting up in bed, on 3 L/m nasal cannula, in no acute distress. Patient is not oxygen dependent at baseline. She is wheezing on auscultation. Patient has been started on a combination of DuoNeb's, budesonide, formoterol, and IV Solu-Medrol. Her granddaughter is at bedside, and I answered all their questions. Patient is being monitored on the general medical floor. The patient is seen today 01/11/2023 in follow-up on the regular medical floor. She is resting comfortably in bed. Maintaining good O2 saturations in the 90s on 3 L/m per nasal cannula. No IV fluids. She did undergo a left-sided thoracentesis yesterday with 1.2 L of bloody fluid returned. All of chest x-ray revealed decreased small left pleural effusion. No evidence of pneumothorax. There is cardiomegaly with pulmonary vascular congestion. Exudate with a total protein of 3.5 and a LDH of 223. White count 11.4. Hemoglobin 12.5. Platelets 329. Sodium 139. Potassium 4.5. Bicarb 29. BUN 44. Creatinine 1.36. Glucose 199. TSH 0.338. T4 pending. He is continued on DuoNeb inhalations, Pulmicort and Perforomist inhalations, IV Solu-Medrol. The patient is seen today 01/12/2023 in follow-up on the regular medical floor. She is currently resting comfortably in bed. Awake and alert in no acute distress. She denies any worsening shortness of breath, cough or congestion. She is maintaining O2 saturations in the 90s on 3 L/m per nasal cannula. No IV fluids. She did undergo a left-sided thoracentesis on 01/10/2023 that was exudate in nature with an LDH of 223. Protein 3.5. Pleural fluid cultures are pending. Blood sugar 243. He is continued on DuoNeb inhalations, Pulmicort and Perforomist inhalations, Solu-Medrol. Objective - Vital Signs Vital signs: Vital Signs Temp 98.1 F 01/12/23 08:00 Pulse 76 01/12/23 08:19 Resp 18 01/12/23 08:00 BP 151/72 01/12/23 08:00 Pulse Ox 96 01/12/23 10:38 FiO2 Intake & Output 01/11/23 01/12/23 01/12/23 18:59 06:59 18:59 Intake Total 120 Output Total 600 250 Balance -600 -130 Intake: Oral 120 Output: Urine 600 250 Uretheral (Parsons) 600 Other: Voiding Method Indwelling Catheter Indwelling Catheter # Bowel Movements 1 - Exam GENERAL EXAM: Alert, pleasant 87-year-old female, resting comfortably in bed, on 3 L nasal cannula, in no apparent distress. HEAD: Normocephalic and atraumatic EYES: Normal reaction of pupils, equal size. NOSE: Clear with pink turbinates. THROAT: No erythema or exudates. NECK: No masses, no JVD. CHEST: No chest wall deformity. No crepitus or gross deformities LUNGS: Expiratory wheezes heard throughout. No conversational dyspnea. CVS: S1 and S2 normal with no audible murmur, regular rhythm. No extra heart sounds ABDOMEN: No hepatosplenomegaly, active bowel sounds, no guarding or rigidity. SPINE: No scoliosis or deformity SKIN: No rashes CENTRAL NERVOUS SYSTEM: No focal deficits, tone is normal in all 4 extremities. EXTREMITIES: There is no peripheral edema, clubbing, or cyanosis. Peripheral pulses are intact. - Labs CBC & Chem 7: 01/11/23 06:34 01/11/23 06:34 Labs: Abnormal Lab Results - Last 24 Hours (Table) 01/11/23 01/11/23 01/11/23 Range/Units 16:49 16:50 20:57 POC Glucose (mg/dL) 51 L 65 L 118 H (70-110) mg/dL 01/12/23 Range/Units 07:05 POC Glucose (mg/dL) 243 H (70-110) mg/dL Microbiology - Last 24 Hours (Table) 01/10/23 14:00 Gram Stain - Preliminary Pleural Fluid Body Fluid Culture - Preliminary 01/10/23 14:00 Acid Fast Bacilli Smear - Preliminary Pleural Fluid Assessment and Plan Assessment: Fall sustaining acute segmental fractures of the left fourth and fifth ribs with additional mildly displaced acute fractures the left lateral 6 through 10th ribs. No pneumothorax. There was a large left-sided pleural effusion and associated atelectasis likely representing hemothorax. Status post left-sided thoracentesis on 01/10/2023 with 1.2 L of bloody fluid returned. Exudate. Tota l protein 3.5. LDH 223. Cytology pending. Acute COPD exacerbation Acute hypoxemic respiratory failure, secondary to above Diabetes mellitus, insulin-dependent Hyperlipidemia Hypothyroidism Moderate size hiatal hernia Obesity with a BMI of 31.9 kg/m Remote ex-smoker Plan: The patient was seen and evaluated Medications and labs reviewed Titrate the FiO2 as tolerated Cytology pending Continue bronchodilators Discontinue Solu-Medrol, initiate prednisone taper Increase her activity as tolerated We will continue to follow This patient was seen independently by the nurse practitioner I have personally seen and examined the patient, performed the documentation and the assessment and plan as written. Number of minutes spent on the visit: 22.
[2023-01-12 12:02] LABS: Glucose,Whole Blood 381 mg/dL (70-110)
[2023-01-12] MEDS: PRIMIDONE 25 MG TAB PO SCH ×3 (14:01→21:30)
[2023-01-12 17:19] LABS: Glucose,Whole Blood 347 mg/dL (70-110)
[2023-01-12] MEDS: ATORVASTATIN 10 MG TAB PO SCH (17:26)
--- NOTE | 2023-01-12 18:24 | P.PN ---
Progress Note - Text Progress Note Date: 01/12/23 Chief Complaint: Short of breath This is a pleasant 87-year-old patient who follows with Dr. Tate. History some pain by the Dr. Storm at the bedside. Lives with the patient. On December 23 patient had rolled out of bed and as a result had 4 fractured ribs. Patient subsequently has become more short of breath. Decreased appetite. No fever and chills. Does wear diapers. Does not take any oxygen at home. Became more short of breath. Was transferred here from [facility]. Having pain at the fracture site. Patient is scheduled for possible paracentesis today. Hemothorax suspected January 11: Status post left hemothorax paracentesis yesterday. Pain better control. Did tolerate some diet. On 3 L nasal cannula. Resting in bed January 12: Breathing better. On 3 L of nasal cannula. Discussed with the nurse and the daughter the bedside. Have the patient sit up as well as possible including on the chair. Incentive spirometry. Spoke to social service manager. Looking at rehab. Possibly tomorrow. Pain control. Eating about 100% Active Medications Acetaminophen (Acetaminophen Tab 325 Mg Tab) 650 mg PO Q4HR PRN PRN Reason: Mild Pain or Fever > 100.5 Hydrocodone Bitart/Acetaminophen (Hydrocodone/Apap 5-325mg 1 Each Tab) 1 each PO Q6HR PRN PRN Reason: Moderate to Severe Pain (4-10) Last Admin: 01/09/23 23:11 Dose: 1 each Albuterol/Ipratropium (Ipratropium-Albuterol 3 Ml Neb) 3 ml INHALATION RT-Q2H PRN PRN Reason: Shortness Of Breath Or Wheezing Albuterol/Ipratropium (Ipratropium-Albuterol 3 Ml Neb) 3 ml INHALATION RT-QID [facility] Last Admin: 01/12/23 15:14 Dose: 3 ml Aspirin (Aspirin 81 Mg) 81 mg PO BID [facility] Last Admin: 01/12/23 09:27 Dose: 81 mg Atorvastatin Calcium (Atorvastatin 10 Mg Tab) 10 mg PO W/SUPPER [facility] Last Admin: 01/12/23 17:26 Dose: 10 mg Budesonide (Budesonide 1 Mg/2 Ml Nebu) 1 mg INHALATION RT-BID [facility] Last Admin: 01/12/23 07:49 Dose: 1 mg Calcium Carbonate/Glycine (Calcium Carbonate 500 Mg Chewable) 500 mg PO BID [facility] Last Admin: 01/12/23 09:27 Dose: 500 mg Dextrose/Water (Dextrose 50% Syringe 50 Ml) 25 ml IVP PER PROTOCOL PRN; Protocol PRN Reason: Hypoglycemia Dextrose/Water (Dextrose 50% Syringe 50 Ml) 50 ml IVP PER PROTOCOL PRN; Protocol PRN Reason: Hypoglycemia Formoterol Fumarate (Formoterol Fumarate 20 Mcg/2 Ml Nebu) 20 mcg INHALATION RT-BID [facility] Last Admin: 01/12/23 07:50 Dose: 20 mcg Insulin Aspart (Insulin Aspart (Novolog) 100 Unit/Ml Vial) 10 unit SQ AC-TID [facility] Last Admin: 01/12/23 17:26 Dose: 10 unit Insulin Detemir (Insulin Detemir (Levemir) 100 Unit/Ml Syr) 28 unit SQ DAILY@0700 [facility] Last Admin: 01/12/23 09:17 Dose: 28 unit Levothyroxine Sodium (Levothyroxine 50 Mcg Tab) 50 mcg PO 0630 [facility] Last Admin: 01/12/23 05:22 Dose: 50 mcg Multivitamins (Multivitamins, Thera 1 Each Tab) 1 each PO W/BRKFST [facility] Last Admin: 01/12/23 09:18 Dose: 1 each Naloxone HCl (Naloxone 0.4 Mg/Ml 1 Ml Vial) 0.2 mg IVP Q2M PRN PRN Reason: Opioid Reversal Naproxen (Naproxen 250 Mg Tab) 250 mg PO TID [facility] Last Admin: 01/12/23 17:26 Dose: 250 mg Pantoprazole Sodium (Pantoprazole 40 Mg Tablet) 40 mg PO BID [facility] Last Admin: 01/12/23 09:29 Dose: 40 mg Paroxetine HCl (Paroxetine 20 Mg Tab) 40 mg PO DAILY [facility] Last Admin: 01/12/23 10:54 Dose: 40 mg Prednisone (Prednisone 10 Mg Tab) 30 mg PO DAILY [facility] Primidone (Primidone 25 Mg Tab) 25 mg PO TID [facility] Last Admin: 01/12/23 17:26 Dose: 25 mg Social history: Daughter Dotty lives with her. Does use a walker. Nonsmoker. Physical examination: VITAL SIGNS: 98.2, 82, 18, 133/65, 96% on 3 L GENERAL: Reclining in bed, eating lunch EYES: Pupils equal. Conjunctiva normal. HEENT: External appearance of nose and ears normal, oral cavity grossly normal very hard of hearing. NECK: JVD unable to assess; masses not palpable. HEART: First and second heart sounds are normal; no edema. LUNGS: Respiratory rate increased; decreased breath sounds. ABDOMEN: Soft, nontender, liver spleen not palpable, no masses palpable. PSYCH: [Able to answer simple questions MUSCULOSKELETAL:No Clubbing/cyanosis;muscles-grossly intact. Left chest wall tenderness INVESTIGATIONS, reviewed in the clinical context: January 11: White count 11.4 hemoglobin 12.5 potassium 4.5 creatinine 1.36 Influenza type A, B, RSV, COVID-19: Not detected Assessment and plan: -Large left-sided hemothorax secondary to rib fracture secondary to fall. thoracentesis.-1200 mL of bloody fluid removed on January [address] Sanches -Acute hypoxic respiratory failure secondary to hemothorax 3 L nasal cannula -Left-sided rib fracture secondary to fall Naproxen. -Hypothyroid Synthroid 50 g a day -Hyperlipidemia Mevacor 20 mg with supper -Anxiety Paxil 40 mg a day -GERD Omeprazole -Diabetes mellitus type chronically on insulin, uncontrolled with hyperglycemia Increase Insulin Lantus. 35 units in the morning. Follow Accu-Cheks and sliding scale NovoLog 10 units before meals 3 times a day -DO NOT RESUSCITATE. Daughter Dotty does decision-making Up in a chair. Sitting up in bed. Incentive spirometry. Plan for discharge to rehab tomorrow.
[2023-01-12 19:50] LABS: Glucose,Whole Blood 235 mg/dL (70-110)
[2023-01-13] MEDS: LEVOTHYROXINE 50 MCG TAB PO SCH (05:40)
[2023-01-13] MEDS ORDERED: INSULIN DETEMIR (LEVEMIR) 100 UNIT/ML SYR SQ SCH (07:00)
[2023-01-13 07:09] LABS: Glucose,Whole Blood 167 mg/dL (70-110)
[2023-01-13] MEDS: BUDESONIDE 1 MG/2 ML NEBU INHALATION SCH (07:14)
[2023-01-13] MEDS: FORMOTEROL FUMARATE 20 MCG/2 ML NEBU INHALATION SCH (07:14)
[2023-01-13] MEDS: IPRATROPIUM-ALBUTEROL 3 ML NEB INHALATION SCH ×2 (07:14→11:00)
[2023-01-13] MEDS ORDERED: predniSONE 10 MG TAB PO SCH (09:00)
[2023-01-13] MEDS: INSULIN ASPART (NovoLOG) 100 UNIT/ML VIAL SQ SCH ×2 (09:57→13:18)
[2023-01-13] MEDS: CALCIUM CARBONATE 500 MG CHEWABLE PO SCH (09:58)
[2023-01-13] MEDS: ASPIRIN 81 MG PO SCH (09:58)
[2023-01-13] MEDS: PRIMIDONE 25 MG TAB PO SCH (09:58)
[2023-01-13] MEDS: PANTOPRAZOLE 40 MG TABLET PO SCH (09:58)
[2023-01-13] MEDS: NAPROXEN 250 MG TAB PO SCH (09:59)
[2023-01-13] MEDS: PARoxetine 20 MG TAB PO SCH (09:59)
[2023-01-13] MEDS: MULTIVITAMINS, THERA 1 EACH TAB PO SCH (09:59)
--- NOTE | 2023-01-13 10:58 | P.PN ---
Subjective Progress Note Date: 01/13/23 I am seeing this patient in new consultation today 01/10/2023 after he was transferred from [facility] for progressively worsening shortness of breath and recent fall sustaining multiple left-sided rib fracture. Patient is an 87-year-old female with past medical history significant for COPD, diabetes mellitus, hypothyroidism, and is a remote ex-smoker. Her PCP is Dr. Tate out of [place]. Apparently, a little bit over 2 weeks ago, the patient was sleeping when she rolled out of bed and fell on the ground. She sustained multiple left sided rib fractures and originally presented to [facility] back on December 23. She was reportedly discharged home. Patient returned back to [facility] yesterday for complaints of progressively worsening shortness of breath. A CT of the chest done at outside facility showed acute segmental fractures of the left fourth and fifth ribs with additional mildly displaced acute fractures the left lateral 6 through 10th ribs. No pneumothorax. There was a large left-sided pleural effusion and associated atelectasis. There is also patchy right upper lobe airspace opacity likely representing atelectasis. A trace pericardial effusion with mild cardiomegaly. Moderate size hiatal hernia. And a stable left adrenal gland nodule measuring 2.8 cm. Patient denies any new falls in the last couple weeks. She has become progressively more short of breath. Admits left lateral/posterior back pain. Denies fevers. Admits occasional nonproductive cough. Denies hemoptysis.. CBC at outside facility showed a WBC count of 6.8, hemoglobin of 12.6, hematocrit 40.9, platelets of 309. BMP from outside facility shows sodium 141, potassium 3.9, chloride 106, serum bicarbonate 32, BUN 29, creatinine 1.1, glucose 111. NT- probnp was 2620. Procalcitonin level 0.06. Lactic acid level I.1. At our facility the patient was negative for influenza, RSV, COVID-19. She is currently sitting up in bed, on 3 L/m nasal cannula, in no acute distress. Patient is not oxygen dependent at baseline. She is wheezing on auscultation. Patient has been started on a combination of DuoNeb's, budesonide, formoterol, and IV Solu-Medrol. Her granddaughter is at bedside, and I answered all their questions. Patient is being monitored on the general medical floor. The patient is seen today 01/11/2023 in follow-up on the regular medical floor. She is resting comfortably in bed. Maintaining good O2 saturations in the 90s on 3 L/m per nasal cannula. No IV fluids. She did undergo a left-sided thoracentesis yesterday with 1.2 L of bloody fluid returned. All of chest x-ray revealed decreased small left pleural effusion. No evidence of pneumothorax. There is cardiomegaly with pulmonary vascular congestion. Exudate with a total protein of 3.5 and a LDH of 223. White count 11.4. Hemoglobin 12.5. Platelets 329. Sodium 139. Potassium 4.5. Bicarb 29. BUN 44. Creatinine 1.36. Glucose 199. TSH 0.338. T4 pending. He is continued on DuoNeb inhalations, Pulmicort and Perforomist inhalations, IV Solu-Medrol. The patient is seen today 01/12/2023 in follow-up on the regular medical floor. She is currently resting comfortably in bed. Awake and alert in no acute distress. She denies any worsening shortness of breath, cough or congestion. She is maintaining O2 saturations in the 90s on 3 L/m per nasal cannula. No IV fluids. She did undergo a left-sided thoracentesis on 01/10/2023 that was exudate in nature with an LDH of 223. Protein 3.5. Pleural fluid cultures are pending. Blood sugar 243. He is continued on DuoNeb inhalations, Pulmicort and Perforomist inhalations, Solu-Medrol. The patient is seen today 01/13/2023 in follow-up on the regular medical floor. She is awake and alert in no acute distress. Currently resting comfortably in bed. Maintaining O2 saturations in the 90s on 3 L nasal cannula. Regular heart rhythm. No IV fluids. To continue DuoNeb inhalations, Pulmicort and Perforomist inhalations, prednisone taper. Cytology from pleural fluid still pending. Cultures revealed no growth. Glucose 167. Objective - Vital Signs Vital signs: Vital Signs Temp 98.1 F 01/13/23 07:25 Pulse 64 01/13/23 07:41 Resp 22 01/13/23 07:25 BP 160/75 01/13/23 07:25 Pulse Ox 100 01/13/23 07:25 FiO2 Intake & Output 01/12/23 01/13/23 01/13/23 18:59 06:59 18:59 Intake Total 590 Output Total 250 400 Balance -250 190 Intake: Oral 590 Output: Urine 250 400 Other: Voiding Method Indwelling Catheter External Catheter # Bowel Movements 0 - Exam GENERAL EXAM: Alert, 87-year-old female, resting in bed, on 3 L nasal cannula, in no apparent distress. HEAD: Normocephalic and atraumatic EYES: Normal reaction of pupils, equal size. NOSE: Clear with pink turbinates. THROAT: No erythema or exudates. NECK: No masses, no JVD. CHEST: No chest wall deformity. No crepitus or gross deformities LUNGS: Faint bilateral end expiratory wheezes heard throughout. No conversational dyspnea. CVS: S1 and S2 normal with no audible murmur, regular rhythm. No extra heart sounds ABDOMEN: No hepatosplenomegaly, active bowel sounds, no guarding or rigidity. SPINE: No scoliosis or deformity SKIN: No rashes CENTRAL NERVOUS SYSTEM: No focal deficits, tone is normal in all 4 extremities. EXTREMITIES: There is no peripheral edema, clubbing, or cyanosis. Peripheral pulses are intact. - Labs CBC & Chem 7: 01/11/23 06:34 01/11/23 06:34 Labs: Abnormal Lab Results - Last 24 Hours (Table) 01/12/23 01/12/23 01/12/23 Range/Units 12:00 17:18 19:49 POC Glucose (mg/dL) 381 H 347 H 235 H (70-110) mg/dL 01/13/23 Range/Units 07:08 POC Glucose (mg/dL) 167 H (70-110) mg/dL Microbiology - Last 24 Hours (Table) 01/10/23 14:00 Anaerobic Culture - Preliminary Pleural Fluid 01/10/23 14:00 Gram Stain - Preliminary Pleural Fluid Body Fluid Culture - Preliminary Assessment and Plan Assessment: Fall sustaining acute segmental fractures of the left fourth and fifth ribs with additional mildly displaced acute fractures the left lateral 6 through 10th ribs. No pneumothorax. There was a large left-sided pleural effusion and associated atelectasis likely representing hemothorax. Status post left-sided thoracentesis on 01/10/2023 with 1.2 L of bloody fluid returned. Exudate. Total protein 3.5. LDH 223. Cytology pending. Acute COPD exacerbation Acute hypoxemic respiratory failure, secondary to above Diabetes mellitus, insulin-dependent Hyperlipidemia Hypothyroidism Moderate size hiatal hernia Obesity with a BMI of 31.9 kg/m Remote ex-smoker Plan: The patient was seen and evaluated Medications reviewed Titrate the FiO2 as tolerated Cytology pending Continue bronchodilators and steroids Obtain a follow-up chest x-ray Increase her activity as tolerated We will continue to follow This patient was seen independently by the nurse practitioner I have personally seen and examined the patient, performed the documentation and the assessment and plan as written. Number of minutes spent on the visit: 20.
[2023-01-13 12:00] LABS: Glucose,Whole Blood 207 mg/dL (70-110)
[2023-01-13 12:06] VITALS: BP 131/71; PULSE 70; RESP 20; TEMP 97.4
--- NOTE | 2023-01-13 12:58 | XR ---
EXAMINATION TYPE: XR chest 1V portable DATE OF EXAM: 01/13/2023 12:53 PM COMPARISON: Chest radiographs from 01/10/2023 TECHNIQUE: XR chest 1V portable Portable AP radiograph of the chest. CLINICAL INDICATION:Female, 87 years old with history of pleural effusion; FINDINGS: Lungs/Pleura: Similar small left pleural effusion. No focal consolidation or pneumothorax. Pulmonary vascularity: Pulmonary vascular congestion. Heart/mediastinum: Cardiomediastinal silhouette is enlarged and stable. Atherosclerotic calcificatio ns are seen in the aorta. Musculoskeletal: No acute osseous pathology. IMPRESSION: 1. Similar small left pleural effusion. No pneumothorax. 2. Cardiomegaly with pulmonary vascular congestion.
--- NOTE | 2023-01-13 13:30 | P.DS ---
Providers Date of admission: 01/09/23 20:16 Expected date of discharge: 01/13/23 Attending physician: Marquise Albrecht Consults: 01/09/23 20:13 Consult Physician Routine Consulting Provider: Jesse Serrano Consult Reason/Comments: copd Do you want consulting provider notified?: Yes Primary care physician: Balwinder [facility] Course: Chief Complaint: Short of breath This is a pleasant 87-year-old patient who follows with Dr. Tate. History some pain by the Dr. Storm at the bedside. Lives with the patient. On December 23 patient had rolled out of bed and as a result had 4 fractured ribs. Patient subsequently has become more short of breath. Decreased appetite. No fever and chills. Does wear diapers. Does not take any oxygen at home. Became more short of breath. Was transferred here from [facility]. Having pain at the fracture site. Patient is scheduled for possible paracentesis today. Hemothorax suspected January 11: Status post left hemothorax paracentesis yesterday. Pain better control. Did tolerate some diet. On 3 L nasal cannula. Resting in bed January 12: Breathing better. On 3 L of nasal cannula. Discussed with the nurse and the daughter the bedside. Have the patient sit up as well as possible including on the chair. Incentive spirometry. Spoke to social work specialist. Looking at rehab. Possibly tomorrow. Pain control. Eating about 100% January 13: Doing much better. Eating well controlled. Breathing stable. Discussed with the patient and daughter the bedside. Going to rehab. Questions answered. . Fluid restriction. Patient to follow-up with Dr. Duff. Resume Lasix. Discussion and discharge planning more than 35 minutes Social history: Yoan Storm lives with her. Does use a walker. Nonsmoker. Physical examination: VITAL SIGNS: 97.4, 70, 20, 131/71, 94% on 2 L GENERAL: Reclining in bed, comfortable EYES: Pupils equal. Conjunctiva normal. HEENT: External appearance of nose and ears normal, oral cavity grossly normal very hard of hearing. NECK: JVD unable to assess; masses not palpable. HEART: First and second heart sounds are normal; no edema. LUNGS: Respiratory rate increased; decreased breath sounds. ABDOMEN: Soft, nontender, liver spleen not palpable, no masses palpable. PSYCH: [Able to answer simple questions MUSCULOSKELETAL:No Clubbing/cyanosis;muscles-grossly intact. Left chest wall tenderness INVESTIGATIONS, reviewed in the clinical context: January 11: White count 11.4 hemoglobin 12.5 potassium 4.5 creatinine 1.36 Influenza type A, B, RSV, COVID-19: Not detected Assessment and plan: -Large left-sided hemothorax secondary to rib fracture secondary to fall. thoracentesis.-1200 mL of bloody fluid removed on January [address] Sanches -Acute hypoxic respiratory failure secondary to hemothorax 3 L nasal cannula -Left-sided rib fracture secondary to fall, pain was controlled Naproxen. -Hard of hearing -Hypothyroid Synthroid 50 g a day -Hyperlipidemia Mevacor 20 mg with supper -Anxiety Paxil 40 mg a day -GERD Omeprazole -Diabetes mellitus type chronically on insulin, uncontrolled with hyperglycemia Insulin Lantus. 30 units in the morning. Follow Accu-Cheks and sliding scale NovoLog 4 units before meals 3 times a day -DO NOT RESUSCITATE. Daughter Dotty does decision-making Disposition: Rehab at [facility] Labs: CBC BMP: 4 days Plan - Discharge Summary Discharge Rx Participant: No New Discharge Prescriptions: New Naproxen [Naprosyn] 250 mg PO TID tab HYDROcodone/APAP 5-325MG [[place] 5-325] 1 each PO Q8H PRN #12 tab PRN Reason: Moderate To Severe Pain (4-10) Continue Pedi Multivit No.25/Folic Acid [Flintstones Multivit Chew Tab] 1 tab PO BID- W/MEALS Eye Health Complex Supplement 1 tab PO DAILY Alendronate Sodium [Fosamax] 70 mg PO SNATILLAN Calcium Carbonate [Calcium] 600 mg PO BID Aspirin EC [Ecotrin Low Dose] 81 mg PO BID Omeprazole 80 mg PO BID Albuterol Nebulized [Ventolin Nebulized] 2.5 mg INHALATION RT-QID PRN PRN Reason: Shortness Of Breath PARoxetine HCL 40 mg PO DAILY Lovastatin [Mevacor] 20 mg PO W/SUPPER Levothyroxine Sodium [Synthroid] 50 mcg PO DAILY Changed Insulin Glargine,Hum.rec.anlog [Basaglar Kwikpen U-100] 30 unit SQ DAILY #0 Insulin Aspart [NovoLOG Flexpen] 4 units SQ TID-W/MEALS PRN #0 PRN Reason: Blood Sugar - High Discontinued Furosemide [Lasix] 40 mg PO DAILY Ibuprofen [Motrin] 600 mg PO TID-W/MEALS Discharge Medication List Albuterol Nebulized [Ventolin Nebulized] 2.5 mg INHALATION RT-QID PRN 01/09/23 [History] Alendronate Sodium [Fosamax] 70 mg PO SANTILLAN 01/09/23 [History] Aspirin EC [Ecotrin Low Dose] 81 mg PO BID 01/09/23 [History] Calcium Carbonate [Calcium] 600 mg PO BID 01/09/23 [History] Eye Health Complex Supplement 1 tab PO DAILY 01/09/23 [History] Levothyroxine Sodium [Synthroid] 50 mcg PO DAILY 01/09/23 [History] Lovastatin [Mevacor] 20 mg PO W/SUPPER 01/09/23 [History] Omeprazole 80 mg PO BID 01/09/23 [History] PARoxetine HCL 40 mg PO DAILY 01/09/23 [History] Pedi Multivit No.25/Folic Acid [Flintstones Multivit Chew Tab] 1 tab PO BID- W/MEALS 01/09/23 [History] HYDROcodone/APAP 5-325MG [[place] 5-325] 1 each PO Q8H PRN #12 tab 01/13/23 [Rx] Insulin Aspart [NovoLOG Flexpen] 4 units SQ TID-W/MEALS PRN #0 01/13/23 [Rx] Insulin Glargine,Hum.rec.anlog [Basaglar Kwikpen U-100] 30 unit SQ DAILY #0 01/13/23 [Rx] Naproxen [Naprosyn] 250 mg PO TID tab 01/13/23 [Rx] Follow up Appointment(s)/Referral(s): Balwinder Tate MD [Primary Care Provider] - 1-2 days
== END 2023-01-13 14:37 | DRG 199 ==
LOC: EC 19:57 → 5NMEDONC 20:16
PROVIDERS: ADMIT Hospitalist; ATTEND Hospitalist
PROC: 0W9B3ZZ Drainage of Left Pleural Cavity, Percutaneous Approach (ICD-10-PCS; principal; 2023-01-10)
DX: S27.2XXA Traumatic hemopneumothorax, initial encounter (principal); J96.01 Acute respiratory failure with hypoxia; S22.42XA Multiple fractures of ribs, left side, initial encounter for closed fracture; J90 Pleural effusion, not elsewhere classified; J44.1 Chronic obstructive pulmonary disease with (acute) exacerbation; J98.11 Atelectasis; W06.XXXA Fall from bed, initial encounter; E03.9 Hypothyroidism, unspecified; E11.649 Type 2 diabetes mellitus with hypoglycemia without coma; E27.8 Other specified disorders of adrenal gland; E66.9 Obesity, unspecified; Z68.31 Body mass index [BMI] 31.0-31.9, adult; E78.5 Hyperlipidemia, unspecified; K44.9 Diaphragmatic hernia without obstruction or gangrene; K21.9 Gastro-esophageal reflux disease without esophagitis; F41.9 Anxiety disorder, unspecified; H91.90 Unspecified hearing loss, unspecified ear; I11.9 Hypertensive heart disease without heart failure; Z66 Do not resuscitate; Z28.310 Unvaccinated for COVID-19; Z28.9 Immunization not carried out for unspecified reason; Z11.52 Encounter for screening for COVID-19; Z79.4 Long term (current) use of insulin; Z79.82 Long term (current) use of aspirin; Z79.83 Long term (current) use of bisphosphonates; Z79.890 Hormone replacement therapy; Z79.899 Other long term (current) drug therapy; Z91.81 History of falling; Z88.7 Allergy status to serum and vaccine; Z88.8 Allergy status to other drugs, medicaments and biological substances; Z91.012 Allergy to eggs
CPT/HCPCS: 71045; 76604; 80048; 82945; 83036; 83615; 84157; 84439; 84443; 85025; 87070; 87075; 87102; 87116; 87205; 87206; 87496; 87498; 87502; 87529; 87634; 87636; 87798; 88108; 88305; 89050; 94640; 99285

== ENCOUNTER 2024-06-27 23:45 | Inpatient (IN) | payer MEDICARE ==
[2024-06-28 00:06] LABS: Basophils # (A) 0.04 10*3/uL (0.00-0.10); Basophils % (A) 0.3 %; Eosinophils # (A) 0.11 10*3/uL (0.04-0.35); Eosinophils % (A) 0.9 %; HCT 40.8 % (37.2-46.3); HGB 13.3 g/dL (12.0-15.0); Lymphocytes # (A) 1.04 10*3/uL (0.90-5.00); Lymphocytes % (A) 8.7 %; MCH 31.7 pg (27.0-32.0); MCHC 32.6 g/dL (32.0-37.0); MCV 97.4 fL (80.0-97.0); Mean Platelet Volume 10.7 fL (9.5-12.2); Monocytes # (A) 0.59 10*3/uL (0.20-1.00); Neutrophils # (A) 10.08 10*3/uL (1.80-7.70); Neutrophils % (A) 84.7 %; Platelet Count 278 10*3/uL (140-440); RBC 4.19 10*6/uL (4.10-5.20); WBC 11.91 10*3/uL (4.50-10.00)
[2024-06-28 00:23] LABS: ALT 47 U/L (4-34); AST 45 U/L (14-36); African American GFR (CKD) 52 (>60 ml/min/1.73 sqM); Albumin 3.6 g/dL (3.5-5.0); Alkaline Phosphatase 155 U/L (38-126); Anion Gap 7 mmol/L; Blood Urea Nitrogen 32 mg/dL (7-17); Carbon Dioxide 31 mmol/L (22-30); Chloride 100 mmol/L (98-107); Glucose 265 mg/dL (74-99); Non-African American GFR(CKD) 45 (>60 ml/min/1.73 sqM); Potassium 4.5 mmol/L (3.5-5.1); Sodium 138 mmol/L (137-145); Total Bilirubin 0.3 mg/dL (0.2-1.3); Total Protein 6.4 g/dL (6.3-8.2)
[2024-06-28 00:27] LABS: Partial Thromboplastin Time 24.7 sec (22.0-30.0); Prothrombin Time 10.8 sec (10.0-12.5)
--- NOTE | 2024-06-28 00:55 | ED ---
General Adult HPI - General Chief complaint: Fall Stated complaint: FALL; head injury Time Seen by Provider: 06/27/24 23:51 Source: patient, EMS Mode of arrival: EMS Limitations: no limitations - History of Present Illness Initial comments: Patient is a pleasant 88 y/o female presenting for left hip injury after fall forward at home. Patient is very [place] limited history gathering. EMS report the pt lives with her family and they heard her fall and came to find her on the ground, awake, at her baseline and complaining of left hip pain. They believe pt may have stated she hit the back of her head though are unsure. Pt is on eliquis due to hx a fib. Last dose 6 PM last night . Paramedics examined the pt thoroughly and stated she had no signs of injury to her head, back or neck but LL appears shortened and externally rotated. Pt is at her baseline mental status and denies additional complaints beyond left hip pain. 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 - Related Data Home Medications Medication Instructions Recorded Confirmed Calcium Carbonate [Calcium] 600 mg PO DAILY 01/09/23 06/28/24 Eye Health Complex Supplement 1 tab PO DAILY 01/09/23 06/28/24 Lovastatin [Mevacor] 20 mg PO HS 01/09/23 06/28/24 Omeprazole 40 mg PO BID 01/09/23 06/28/24 PARoxetine HCL 40 mg PO DAILY 01/09/23 06/28/24 Pedi Multivit No.25/Folic Acid 300 mcg PO DAILY 01/09/23 06/28/24 [Flintstones Multivit Chew Tab] Apixaban [Eliquis] 2.5 mg PO BID 06/28/24 06/28/24 Diltiazem Cd [Cardizem CD] 180 mg PO HS 06/28/24 06/28/24 Furosemide [Lasix] 40 mg PO DAILY 06/28/24 06/28/24 Insulin Aspart (Niacinamide) 10 units SQ TID-W/MEALS 06/28/24 06/28/24 [Fiasp 100 Unit/ml Flextouch Pen] Insulin Glargine,Hum.rec.anlog 45 units SQ W/BRKFST 06/28/24 06/28/24 [Lantus Solostar Pen] Levothyroxine Sodium [Synthroid] 75 mcg PO AC-BRKFST 06/28/24 06/28/24 Allergies Allergy/AdvReac Type Severity Reaction Status Date / Time adenosine Allergy Anaphylaxis Verified 06/28/24 07:39 Influenza Virus Vaccines Allergy Anaphylaxis Verified 06/28/24 07:39 egg AdvReac Diarrhea Verified 06/28/24 07:39 flu vaccine Allergy Anaphylaxis Uncoded 06/28/24 07:39 Review of Systems ROS Statement: Those systems with pertinent positive or pertinent negative responses have been documented in the HPI. ROS Other: All systems not noted in ROS Statement are negative. Past Medical History Past Medical History: COPD, Diabetes Mellitus, Thyroid Disorder Additional Past Medical History / Comment(s): Hard of hearing History of Any Multi-Drug Resistant Organisms: None Reported Past Surgical History: Adenoidectomy, Cholecystectomy, Hysterectomy Past Anesthesia/Blood Transfusion Reactions: No Reported Reaction Past Psychological History: No Psychological Hx Reported Smoking Status: Former smoker Past Alcohol Use History: None Reported Past Drug Use History: None Reported General Exam - General Exam Comments Initial Comments: PE: CONSTITUTIONAL: No apparent distress, well appearing SKIN: Warm, dry, no jaundice, hives or petechiae EYES: Pupils are equally round, extraocular movements intact without nystagmus, clear conjunctiva, non-icteric sclera HENT: Normocephalic, atraumatic, moist mucus membranes, oropharynx clear without exudates NECK: , Full range of motion, normal appearance, no midline tenderness to palpation, does have neck stabilizer in place PULMONARY: Clear to auscultation without wheezes, rhonchi, or rales, normal excursion, no accessory muscle use and no stridor CARDIOVASCULAR: Regular rate, rhythm, normal S1 and S2. No appreciated murmurs, rubs or gallops. Strong radial and DP pulses with intact distal perfusion. No lower extremity edema GASTROINTESTINAL: Soft, active bowel sounds throughout, non-tender, non- distended, no palpable masses, no rebound or guarding. No hepatosplenomegaly MUSCULOSKELETAL: No midline spinal tenderness palpation, no signs of trauma upper extremity is shortened and externally rotated, tenderness palpation of the left hip, able to move her foot and ankle with full range of motion, extremity distal to the left hip is atraumatic, neurovascularly intact, remaining extremities have no gross deformity, no edema, redness, or swelling. No calf swelling NEUROLOGIC:_a/o x 3, GCS 15, normal mentation and speech. Moves all extremities x 4 without motor or sensory deficit, with exception of left lower extremity as noted above PSYCHIATRIC:_normal mood and affect, thought process is clear and linear Limitations: no limitations Course Vital Signs 06/27/24 06/28/24 06/28/24 23:46 01:00 02:00 Temperature 98.2 F Pulse Rate 82 82 84 Respiratory 18 12 21 Rate Blood Pressure 109/85 145/72 145/72 O2 Sat by Pulse 96 99 94 L Oximetry Medical Decision Making - Medical Decision Making Was pt. sent in by a medical professional or institution (, PA, LAYOUT DESIGNER, urgent care, hospital, or assisted...) When possible be specific @ -No Did you speak to anyone other than the patient for history (EMS, parent, family, police, friend...)? What history was obtained from this source @I spoke to EMS personnel who provided about HPI, state patient has no signs of injury to head neck or back, left hip pain, was treated with fentanyl which improved her pain, is currently at baseline mental status, does take Eliquis. I later obtained further history from patient's daughter who heard the patient fall, she denies that the patient hit her head, and confirms the patient is at her baseline mental status Did you review nursing and triage notes (agree or disagree)? Why? @ -I reviewed nursing and triage notes-disagree with triage note, unsure if hit head Were old charts reviewed (outside hosp., previous admission, EMS record, old EKG, old radiological studies, urgent care reports/EKG's, assisted records)? Report findings @ -Medical records reviewed Differential Diagnosis (chest pain, altered mental status, abdominal pain women, abdominal pain men, vaginal bleeding, weakness, fever, dyspnea, syncope, headach e, dizziness, GI bleed, back pain, seizure, CVA, palpatations, mental health, musculoskeletal)? @ -Differential Musculoskeletal Muscular strain, contusion, ligament sprain, fracture, arthritis, septic arthritis, bursitis, cellulitis, muscle spasm, nerve compression, DVT, arterial occlusion, herpes zoster, electrolyte abnormality, tumor.... This is not meant to be in all inclusive list EKG interpreted by me (3pts min.). @ -As above X-rays interpreted by me (1pt min.). @Personally reviewed x-ray of the left hip/femur, shows comminuted intertrochanteric fracture I agree with radiologist interpretation CT interpreted by me (1pt min.). @ -Personally reviewed CT brain and C-spine I see no evidence of hemorrhage or skull fracture, no evidence of C-spine fracture or malalignment I agree with radiologist interpretation U/S interpreted by me (1pt. min.). @ -None done What testing was considered but not performed or refused? (CT, X-rays, U/S, labs)? Why? @ -None What meds were considered but not given or refused? Why? @ -None Did you discuss the management of the patient with other professionals (professionals i.e. DrReynaldo, PA, LAYOUT DESIGNER, lab, RT, psych nurse, social psychologist, open hearth melter, teacher, privacy officer, piano case and bench assembler)? Give summary Case was discussed with Dr. Barnhart, orthopedics, kindly accepts pt for admission, requests pt be kept NPO, internal medicine be consulted for medical management. Case discussed with Celso Pryor, kindly agreed to see pt on consult Was smoking cessation discussed for >3mins.? @ -No Was critical care preformed (if so, how long)? @ -No Were there social determinants of health that impacted care today? How? (Homelessness, low income, unemployed, alcoholism, drug addiction, transportation, low edu. Level, literacy, decrease access to med. care, nursing home, rehab)? @ -No Was there de-escalation of care discussed even if they declined (Discuss DNR or withdrawal of care, Hospice)? @ -No What co-morbidities impacted this encounter? (DM, HTN, Smoking, COPD, CAD, Cancer, CVA, ARF, Chemo, Hep., AIDS, mental health diagnosis, sleep apnea, morbid obesity)? atrial fibrillation on eliquis, COPD on 3L O2 NC Was patient admitted / discharged? Hospital course, mention meds given and route, prescriptions, significant lab abnormalities, going to OR and other pertinent info. Admission- This is a pleasant 88 y/o female presenting today for ground level fall with resultant hip injury, uncertain if hit head, on eliquis. Pt seen and assessed by myself on arrival out of concern for "Code coag" which was activated since it was unclear whether or not pt hit her head. Pt is awake and alert though very [place]. Head is atraumatic, no midline spinal TTP, though neck immobilizer will remain in place until CT cspine completed due to patient's age. Left hip TTP, shortened and externally rotated, neurovascularly intact. Plan for plain films hip/femur, CT brain Cspine, preop labs and CXR as I anticipate broken hip which will require admission and possible surgical management. XR signficant for left hip fracture. CT brain/cspine negative. After reviewing patient's imaging I updated patient to imaging findings and cleared their C- Spine. There is no midline cervical neck tenderness or step-offs. The patient denies any numbess, tingling, or weakness of the extremities when moving neck through full ROM. The patient is able to range their neck completely without midline cervical pain, numbness, tingling or weakness. Pt's daughter at bedside, confirmed history, does state the pt did NOT hit her head. Discussed with pt and daughter XR findings and plan for admission. Additional pain control ordered for pt, home meds minus eliquis, as pt may have surgery later today, medicine consulted. Accepted for admission by Dr. Barnhart. Undiagnosed new problem with uncertain prognosis? @ -No Drug Therapy requiring intensive monitoring for toxicity (Heparin, Nitro, Insulin, Cardizem)? @ -No Were any procedures done? @ -No Diagnosis/symptom? @fall, comminuted closed left intertrochanteric fracture Acute, or Chronic, or Acute on Chronic? @acute Uncomplicated (without systemic symptoms) or Complicated (systemic symptoms)? @ -uncomplicated Side effects of treatment? @ -No Exacerbation, Progression, or Severe Exacerbation? @ -No - Lab Data Result diagrams: 06/27/24 23:54 06/28/24 04:00 Lab Results 06/27/24 06/27/24 06/27/24 Range/Units 23:54 23:54 23:54 WBC 11.91 H (4.50-10.00) 10*3/uL RBC 4.19 (4.10-5.20) 10*6/uL Hgb 13.3 (12.0-15.0) g/dL Hct 40.8 (37.2-46.3) % MCV 97.4 H (80.0-97.0) fL MCH 31.7 (27.0-32.0) pg MCHC 32.6 (32.0-37.0) g/dL Plt Count 278 (140-440) 10*3/uL MPV 10.7 (9.5-12.2) fL Immature Gran % (Auto) 0.4 % Neutrophils % 84.7 % Lymphocytes % 8.7 % Monocytes % 5.0 % Eosinophils % 0.9 % Basophils % 0.3 % Immature Gran # 0.05 H (0.00-0.04) 10*3/uL Neutrophils # 10.08 H (1.80-7.70) 10*3/uL Lymphocytes # 1.04 (0.90-5.00) 10*3/uL Monocytes # 0.59 (0.20-1.00) 10*3/uL Eosinophils # 0.11 (0.04-0.35) 10*3/uL Basophils # 0.04 (0.00-0.10) 10*3/uL PT 10.8 (10.0-12.5) sec INR 1.0 (<1.2) APTT 24.7 (22.0-30.0) sec Sodium 138 (137-145) mmol/L Potassium 4.5 (3.5-5.1) mmol/L Chloride 100 (98-107) mmol/L Carbon Dioxide 31 H (22-30) mmol/L Anion Gap 7 mmol/L BUN 32 H (7-17) mg/dL Creatinine 1.11 H (0.52-1.04) mg/dL Est GFR (CKD-EPI)AfAm 52 (>60 ml/min/1.73 sqM) Est GFR (CKD-EPI)NonAf 45 (>60 ml/min/1.73 sqM) Glucose 265 H (74-99) mg/dL Estimated Ave Glu mg/dL mg/dL Hemoglobin A1c (<=6.0) % Calcium 10.0 (8.4-10.2) mg/dL Total Bilirubin 0.3 (0.2-1.3) mg/dL AST 45 H (14-36) U/L ALT 47 H (4-34) U/L Alkaline Phosphatase 155 H (38-126) U/L Total Protein 6.4 (6.3-8.2) g/dL Albumin 3.6 (3.5-5.0) g/dL /24/25 Range/Units 23:54 WBC (4.50-10.00) 10*3/uL RBC (4.10-5.20) 10*6/uL Hgb (12.0-15.0) g/dL Hct (37.2-46.3) % MCV (80.0-97.0) fL MCH (27.0-32.0) pg MCHC (32.0-37.0) g/dL Plt Count (140-440) 10*3/uL MPV (9.5-12.2) fL Immature Gran % (Auto) % Neutrophils % % Lymphocytes % % Monocytes % % Eosinophils % % Basophils % % Immature Gran # (0.00-0.04) 10*3/uL Neutrophils # (1.80-7.70) 10*3/uL Lymphocytes # (0.90-5.00) 10*3/uL Monocytes # (0.20-1.00) 10*3/uL Eosinophils # (0.04-0.35) 10*3/uL Basophils # (0.00-0.10) 10*3/uL PT (10.0-12.5) sec INR (<1.2) APTT (22.0-30.0) sec Sodium (137-145) mmol/L Potassium (3.5-5.1) mmol/L Chloride (98-107) mmol/L Carbon Dioxide (22-30) mmol/L Anion Gap mmol/L BUN (7-17) mg/dL Creatinine (0.52-1.04) mg/dL Est GFR (CKD-EPI)AfAm (>60 ml/min/1.73 sqM) Est GFR (CKD-EPI)NonAf (>60 ml/min/1.73 sqM) Glucose (74-99) mg/dL Estimated Ave Glu mg/dL 186 mg/dL Hemoglobin A1c 8.1 H (<=6.0) % Calcium (8.4-10.2) mg/dL Total Bilirubin (0.2-1.3) mg/dL AST (14-36) U/L ALT (4-34) U/L Alkaline Phosphatase (38-126) U/L Total Protein (6.3-8.2) g/dL Albumin (3.5-5.0) g/dL Disposition Clinical Impression: Fall, Intertrochanteric fracture of left femur Disposition: ADMITTED IP TO THIS HOSP Condition: Stable
[2024-06-28] MEDS: fentaNYL (PF) 50 MCG/ML 2 ML AMP IVP STA (00:56)
--- NOTE | 2024-06-28 01:13 | CT ---
EXAM: CT Head Without Intravenous Contrast CLINICAL HISTORY: ITS.REASON CT Reason: fall hit back of head on eliquis TECHNIQUE: Axial computed tomography images of the head/brain without intravenous contrast. CTDI is 45.3 mGy and DLP is 1027 mGy-cm. This CT exam was performed using one or more of the following dose reduction techniques: automated exposure control, adjustment of the mA and/or kV according to patient size, and/or use of iterative reconstruction technique. COMPARISON: No relevant prior studies available. FINDINGS: No acute intracranial hemorrhage. No midline shift or mass effect. The territorial colvin-white matter differentiation is maintained throughout. Age-related cerebral volume loss. Periventricular and subcortical white matter hypoattenuation, consistent with chronic microangiopathy. The visualized orbits appear grossly unremarkable. The calvarium is intact. The visualized paranasal sinuses and mastoid air cells are grossly clear. IMPRESSION: No acute intracranial hemorrhage, midline shift, or mass effect.
--- NOTE | 2024-06-28 01:35 | XR ---
EXAM: XR Left Femur, 2 Views CLINICAL HISTORY: ITS.REASON XR Reason: fall left hip pain TECHNIQUE: Frontal and lateral views of the left femur. COMPARISON: No relevant prior studies available. FINDINGS: Bones/joints: Comminuted LEFT intertrochanteric hip fracture. Soft tissues: Unremarkable. IMPRESSION: Comminuted LEFT intertrochanteric hip fracture.
--- NOTE | 2024-06-28 01:36 | XR ---
EXAM: XR Chest, 1 View CLINICAL HISTORY: ITS.REASON XR Reason: fall TECHNIQUE: Frontal view of the chest. COMPARISON: No relevant prior studies available. FINDINGS: Lungs: Unremarkable. No consolidation. Pleural space: Small LEFT pleural effusion. No pneumothorax. Heart: Cardiomegaly. Mediastinum: Unremarkable. Bones/joints: Unremarkable. IMPRESSION: Small LEFT pleural effusion.
--- NOTE | 2024-06-28 01:51 | XR ---
EXAM: XR Pelvis, 1 or 2 Views CLINICAL HISTORY: ITS.REASON XR Reason: fall left hip pain TECHNIQUE: Frontal view of the pelvis. COMPARISON: No relevant prior studies available. IMPRESSION: Left femoral intertrochanteric fracture.
[2024-06-28] MEDS ORDERED: NALOXONE 0.4 MG/ML 1 ML VIAL IV PRN (02:02)
[2024-06-28] MEDS ORDERED: ALBUTEROL NEBULIZED 2.5 MG/3 ML INHALATION PRN (02:09)
[2024-06-28] MEDS ORDERED: DEXTROSE 50% SYRINGE 50 ML IVP PRN ×2 (02:46)
[2024-06-28] MEDS: ONDANSETRON 4 MG/2 ML VIAL IVP PRN (03:13)
--- NOTE | 2024-06-28 03:24 | P.CONS ---
History of Present Illness - Reason for Consult Consult date: 06/28/24 medical management Requesting physician: Herminio Barnhart - History of Present Illness Patient is a 88-year-old female with COPD (on 3 L home oxygen), diabetes, GERD, A-fib (on Eliquis), anxiety/depression, chronic leg swelling, hypothyroidism (not on medications) here for ground-level fall. We are consulted for medical management. Patient is hard of hearing and daughter at bedside provided majority of the history at evaluation. Patient was reported to have tried to reach her oxygen tank from her wheelchair and she fell forward to the ground. Her daughter mentioned that she did not hit her head or lose consciousness at the time of the fall. She denied chest pain, shortness of breath, palpitations, focal weakness, abdominal pain or recent illness. Patient ambulates with a wheelchair and has had multiple falls in the past year and multiple broken ribs due to said falls. CT head shows no acute intracranial hemorrhage, midline shift or mass effect. Chest x-ray showed small left pleural effusion and cardiomegaly. Pelvic and femur left x-ray showed comminuted left intertrochanteric hip fracture. WBC 11.9, hemoglobin 13.3, sodium 138, potassium 4.5, bicarb 31, BUN 32, creatinine 1.11, glucose 265, AST 45, ALT 47, alk phos 155, calcium 10. Temperature 98.2 F, pulse rate 82, respiratory rate 18, blood pressure 109/85, O2 saturation 96% on 3 L nasal cannula Review of systems: Pertinent positives and negatives as discussed in HPI, a complete review of systems was performed and all other systems are negative. Physical examination: Vital signs reviewed General: non toxic, no distress, appears at stated age, obese, on nasal cannula Derm: no unusual rashes/lesions, warm Head: atraumatic, normocephalic, symmetric Eyes: EOMI, no lid lag, anicteric sclera, pupils equal round reactive to light ENT: Nose and ears atraumatic Neck: No cervical lymphadenopathy, trachea midline, supple Mouth: no lip lesion, mucus membranes moist Cardiovascular: S1S2 reg, no murmur Lungs: CTA bilateral, no rhonchi, no rales, no accessory muscle use Abdominal: soft, nondistended, nontender to palpation, no guarding Ext: muscle strength 5 out of 5 in all 4 extremities grossly, no gross muscle atrophy, no contractures, positive dorsalis pedis pulse bilateral, no edema, left lower extremity externally rotated ROM limited by pain Neuro: CN II-XI grossly intact, no gross focal neuro deficits Psych: Alert, oriented, appropriate affect and mood Assessment/Plan: #. Left intertrochanteric hip fracture from ground level fall - NPO at midnight - Strict bed rest - Pelvic and femur left x-ray showed comminuted left intertrochanteric hip fracture. - Fentanyl 100 mcg IVPB given in the ED. Continue with Dilaudid 0.5 mg IVP for pain - DVT prophylaxis with SCDs for now #. EMMANUEL likely pre-renal due to poor oral intake -BUN 32, Cr 1.11 -IVF LR 75 cc/hr -Avoid nephrotoxic agents #. Type II Diabetes - Hold Lantus 45 units - Check Hemoglobin A1c. Last known 8% in 01/2023 - Glucose Accu-Cheks ACHS - Initiate Insulin sliding scale ACHS - Monitor for hypoglycemia #. Elevated Transaminases -AST 45, ALT 47, alk phos 155 -Recheck CMP in the AM to reevaluate #. Paroxysmal AFib -Hold Eliquis 2.5mg twice daily. Last dose 6pm 06/28 -Continue Diltiazem 180mg daily #. COPD, hypothyroidism, A-fib, anxiety/depression, chronic leg swelling -On 3L oxygen at home. Patient asymptomatic at this time -Continue supplemental oxygen #. Hyperlipidemia - Continue lovastatin 20 mg daily #. Chronic leg swelling - Continue Lasix 20 mg twice daily #. Anxiety/Depression -Continue paroxetine 40 mg daily #. GERD -Continue omeprazole 40 mg twice daily RCRI Score 1. Would recommend surgical intervation after 48 hours for Eliquis washout. We appreciate being part of this patient's care. Thank you for this consult. Past Medical History Past Medical History: COPD, Diabetes Mellitus, Thyroid Disorder Additional Past Medical History / Comment(s): Hard of hearing History of Any Multi-Drug Resistant Organisms: None Reported Past Surgical History: Adenoidectomy, Cholecystectomy, Hysterectomy Past Anesthesia/Blood Transfusion Reactions: No Reported Reaction Past Psychological History: No Psychological Hx Reported Smoking Status: Former smoker Past Alcohol Use History: None Reported Past Drug Use History: None Reported Medications and Allergies Home Medications Medication Instructions Recorded Confirmed Type Albuterol Nebulized [Ventolin 2.5 mg INHALATION RT-QID PRN 01/09/23 01/09/23 History Nebulized] Alendronate Sodium [Fosamax] 70 mg PO SANTILLAN 01/09/23 01/09/23 History Aspirin EC [Ecotrin Low Dose] 81 mg PO BID 01/09/23 01/09/23 History Calcium Carbonate [Calcium] 600 mg PO BID 01/09/23 01/09/23 History Eye Health Complex Supplement 1 tab PO DAILY 01/09/23 01/09/23 History Levothyroxine Sodium [Synthroid] 50 mcg PO DAILY 01/09/23 01/09/23 History Lovastatin [Mevacor] 20 mg PO W/SUPPER 01/09/23 01/09/23 History Omeprazole 80 mg PO BID 01/09/23 01/09/23 History PARoxetine HCL 40 mg PO DAILY 01/09/23 01/09/23 History Pedi Multivit No.25/Folic Acid 1 tab PO BID-W/MEALS 01/09/23 01/09/23 History [Flintstones Multivit Chew Tab] Furosemide [Lasix] 40 mg PO DAILY #1 tablet 01/13/23 Rx HYDROcodone/APAP 5-325MG [[place] 1 each PO Q8H PRN #12 tab 01/13/23 Rx 5-325] Insulin Aspart [NovoLOG Flexpen] 4 units SQ TID-W/MEALS PRN #0 01/13/23 01/10/23 Rx Insulin Glargine,Hum.rec.anlog 30 unit SQ DAILY #0 01/13/23 01/09/23 Rx [Basaglar Kwikpen U-100] Naproxen [Naprosyn] 250 mg PO TID tab 01/13/23 Rx Allergies Allergy/AdvReac Type Severity Reaction Status Date / Time adenosine Allergy Anaphylaxis Verified 06/28/24 00:04 egg AdvReac Diarrhea Verified 06/28/24 00:04 flu vaccine Allergy Anaphylaxis Uncoded 06/28/24 00:04 Physical Exam Vitals: Vital Signs Temp Pulse Resp BP Pulse Ox 06/27/24 23:46 98.2 F 82 18 109/85 96 Intake and Output 06/27/24 06/27/24 06/28/24 14:59 22:59 06:59 Other: Weight 108.862 kg Results CBC & Chem 7: 06/27/24 23:54 06/27/24 23:54 Labs: Abnormal Lab Results - Last 24 Hours (Table) 06/27/24 06/27/24 Range/Units 23:54 23:54 WBC 11.91 H (4.50-10.00) 10*3/uL MCV 97.4 H (80.0-97.0) fL Immature Gran # 0.05 H (0.00-0.04) 10*3/uL Neutrophils # 10.08 H (1.80-7.70) 10*3/uL Carbon Dioxide 31 H (22-30) mmol/L BUN 32 H (7-17) mg/dL Creatinine 1.11 H (0.52-1.04) mg/dL Glucose 265 H (74-99) mg/dL AST 45 H (14-36) U/L ALT 47 H (4-34) U/L Alkaline Phosphatase 155 H (38-126) U/L
[2024-06-28] MEDS: DILTIAZEM CD 180 MG CAP.ER.24H PO STA (04:37)
[2024-06-28 05:03] LABS: ALT 64 U/L (4-34); AST 79 U/L (14-36); African American GFR (CKD) 60 (>60 ml/min/1.73 sqM); Albumin 3.3 g/dL (3.5-5.0); Albumin/Globulin Ratio 1.2; Alkaline Phosphatase 148 U/L (38-126); Anion Gap 9 mmol/L; Blood Urea Nitrogen 35 mg/dL (7-17); Carbon Dioxide 28 mmol/L (22-30); Chloride 100 mmol/L (98-107); Globulin 2.8 g/dL; Glucose 327 mg/dL (74-99); Non-African American GFR(CKD) 52 (>60 ml/min/1.73 sqM); Potassium 4.8 mmol/L (3.5-5.1); Sodium 137 mmol/L (137-145); Total Bilirubin 0.5 mg/dL (0.2-1.3); Total Protein 6.1 g/dL (6.3-8.2)
--- NOTE | 2024-06-28 06:08 | P.EN ---
06/28 0601 Paged to bedside by RN at 0359 as patient's HR was in 110-150s on telemetry. Also mentioned runs of vtach. On evaluation, patient was cooperative and not in distress and at rest. Evaluation of telemetry did not show any VTach runs but artifacts, but patient was found to be in Afib RVR. Patient was given Diltiazem 180mg once PO and advised to monitor for now to see if HR will improve. At 0589, paged by RN that patient's HR has not improved. Transfer to with telemetry and ordered Lopressor 5mg IVP once.
[2024-06-28 06:26] LABS: Glucose,Whole Blood 342 mg/dL (70-110)
[2024-06-28 06:53] LABS: Glucose,Whole Blood 325 mg/dL (70-110)
[2024-06-28] MEDS: DILTIAZEM 125 MG in DEXTROSE 5% IN WATER 100 ML IV SCH ×2 (06:55→08:02)
[2024-06-28] MEDS: INSULIN LISPRO (HumaLOG) 100 UNIT/ML 10 mL VL SQ SCH ×2 (06:56→12:09)
[2024-06-28 07:22] LABS: Glucose,Whole Blood 331 mg/dL (70-110)
[2024-06-28] MEDS ORDERED: INSULIN LISPRO (HumaLOG) 100 UNIT/ML 10 mL VL SQ SCH (07:30)
[2024-06-28] MEDS: METOPROLOL TARTRATE 5 MG/5 ML VIAL IVP STA (07:36)
[2024-06-28] MEDS: LIDOCAINE 4% PATCH TOPICAL SCH (08:23)
[2024-06-28] MEDS: FUROSEMIDE 40 MG TAB PO SCH (08:23)
[2024-06-28] MEDS: PARoxetine 20 MG TAB PO SCH (08:23)
[2024-06-28] MEDS: PANTOPRAZOLE 40 MG/10 ML VIAL IV SCH (08:23)
[2024-06-28] MEDS: HYDROmorphone 0.5 MG/0.5 ML SYRINGE IVP PRN (08:35)
[2024-06-28] MEDS: VIT A,C & E-LUTEIN-MINERALS 1 EACH TAB PO SCH (08:59)
--- NOTE | 2024-06-28 11:02 | P.CRDCN ---
History of Present Illness Consult date: 06/28/24 Requesting physician: Barbie Patel Reason for Consult (text): afib RVR History of present illness: Patient is a 88 year old female with past medical history of COPD, diabetes mellitus, hypothyroidism, atrial fibrillation presented to the ED for a ground- level fall and is found to have left intertrochanteric fracture. Patient seen today for cardiology consultation for atrial fibrillation with rapid ventricular rate. Last night patient's heart rate was 110-150s on telemetry, patient was cooperative and not in distress patient was found to be in A-fib with RVR and was given diltiazem 180 mg p.o. once. A couple hours later the patient's heart rate did not improve and was administered Lopressor 5 mg IV and was transferred to [facility] with telemetry. Upon reviewing of the rhythm strip, patient was found to have long conversion pauses. Patient is known to have paroxysmal atrial fibrillation and is on Eliquis 2.5 mg p.o. twice daily and Cardizem 180 mg p.o. at bedtime at home. Vitals T 99.1 F, AR 122 bpm, RR 18, BP 108/61, SPO2 95% on 3 L oxygen via nasal cannula EKG independently interpreted as atrial fibrillation with rapid ventricular response, rate 129 bpm, QTc 479 ms Chest x-ray shows small left effusion Head and cervical spine CT shows no acute intracranial hemorrhage, midline shift or mass effect Labs show WBC 11.91, hemoglobin 13.3, platelet count 278, INR 1, potassium 4.8, magnesium 2, creatinine 0.98, AST 79, ALT 64, glucose 331 Review of systems: Pertinent positives and negatives as discussed in HPI, a complete review of systems was performed and all other systems are negative. Physical examination: Vital signs reviewed GENERAL: This is a 88-year-old obese female in no acute respiratory distress. HEENT: Head is atraumatic, normocephalic. Pupils equal, round. Sclerae is anicteric. NECK: Supple. No JVD. LUNGS: Clear to auscultation. No wheezes or rhonchi. No intercostal retractions. HEART: Regular rate and rhythm. ABDOMEN: Soft No tenderness. EXTREMITIES: No pedal edema. No calf tenderness. NEUROLOGICAL: Patient is awake and alert Assessment: Known paroxysmal atrial fibrillation Underlying sick sinus syndrome Type 2 diabetes COPD Hyperlipidemia Hypothyroidism Plan: Discontinue Cardizem drip Start metoprolol 12.5 mg p.o. daily Hold Eliquis Obtain 2D echocardiogram and Doppler study to assess the cardiac structure and function Resume home cardiac medications Further recommendations to follow based upon clinical course Thank you kindly for this consultation. Dictation was produced using [employer] dictation software. please excuse any grammatical, word or spelling errors. Fuad Ronquillo MD PGY-1 IM Past Medical History Past Medical History: COPD, Diabetes Mellitus, Thyroid Disorder Additional Past Medical History / Comment(s): Hard of hearing History of Any Multi-Drug Resistant Organisms: None Reported Past Surgical History: Adenoidectomy, Cholecystectomy, Hysterectomy Past Anesthesia/Blood Transfusion Reactions: No Reported Reaction Past Psychological History: No Psychological Hx Reported Smoking Status: Former smoker Past Alcohol Use History: None Reported Past Drug Use History: None Reported Medications and Allergies Home Medications Medication Instructions Recorded Confirmed Type Calcium Carbonate [Calcium] 600 mg PO DAILY 01/09/23 06/28/24 History Eye Health Complex Supplement 1 tab PO DAILY 01/09/23 06/28/24 History Lovastatin [Mevacor] 20 mg PO HS 01/09/23 06/28/24 History Omeprazole 40 mg PO BID 01/09/23 06/28/24 History PARoxetine HCL 40 mg PO DAILY 01/09/23 06/28/24 History Pedi Multivit No.25/Folic Acid 300 mcg PO DAILY 01/09/23 06/28/24 History [Flintstones Multivit Chew Tab] Apixaban [Eliquis] 2.5 mg PO BID 06/28/24 06/28/24 History Diltiazem Cd [Cardizem CD] 180 mg PO HS 06/28/24 06/28/24 History Furosemide [Lasix] 40 mg PO DAILY 06/28/24 06/28/24 History Insulin Aspart (Niacinamide) 10 units SQ TID-W/MEALS 06/28/24 06/28/24 History [Fiasp 100 Unit/ml Flextouch Pen] Insulin Glargine,Hum.rec.anlog 45 units SQ W/BRKFST 06/28/24 06/28/24 History [Lantus Solostar Pen] Levothyroxine Sodium [Synthroid] 75 mcg PO AC-BRKFST 06/28/24 06/28/24 History Allergies Allergy/AdvReac Type Severity Reaction Status Date / Time adenosine Allergy Anaphylaxis Verified 06/28/24 07:39 Influenza Virus Vaccines Allergy Anaphylaxis Verified 06/28/24 07:39 egg AdvReac Diarrhea Verified 06/28/24 07:39 flu vaccine Allergy Anaphylaxis Uncoded 06/28/24 07:39 Physical Exam Vitals: Vital Signs Temp Pulse Pulse Resp BP BP Pulse Ox 06/28/24 08:20 99.1 F 122 H 18 108/61 95 06/28/24 06:47 98.1 F 143 H 20 102/63 94 L 06/28/24 06:16 141 H 06/28/24 06:11 133 H 06/28/24 05:55 131 H 06/28/24 05:40 142 H 06/28/24 05:31 141 H 06/28/24 05:23 133 H 06/28/24 05:13 136 H 06/28/24 04:53 129 H 06/28/24 04:41 131 H 06/28/24 02:00 84 21 145/72 94 L 06/28/24 01:00 82 12 145/72 99 06/27/24 23:46 98.2 F 82 18 109/85 96 Intake and Output 06/27/24 06/28/24 06/28/24 22:59 06:59 14:59 Intake Total 271.500 Balance 271.500 Intake: IV 260 .9 @20 240 Invasive Line 1 10 Invasive Line 2 10 Intake, IV Titration 11.500 Amount Diltiazem 125 mg In 11.500 Dextrose 5% in Water 100 ml @ 5 MG/HR 5 mls/hr IV .Q24H [facility] Rx#:[id number] Other: Voiding Method Diaper External Catheter Weight 108.862 kg Results 06/27/24 23:54 06/28/24 04:00 Cardiac Enzymes 06/27/24 06/28/24 Range/Units 23:54 04:00 AST 45 H 79 H (14-36) U/L Coagulation 06/27/24 Range/Units 23:54 PT 10.8 (10.0-12.5) sec APTT 24.7 (22.0-30.0) sec CBC 06/27/24 Range/Units 23:54 WBC 11.91 H (4.50-10.00) 10*3/uL RBC 4.19 (4.10-5.20) 10*6/uL Hgb 13.3 (12.0-15.0) g/dL Hct 40.8 (37.2-46.3) % Plt Count 278 (140-440) 10*3/uL Comprehensive Metabolic Panel 06/27/24 06/28/24 Range/Units 23:54 04:00 Sodium 138 137 (137-145) mmol/L Potassium 4.5 4.8 (3.5-5.1) mmol/L Chloride 100 100 (98-107) mmol/L Carbon Dioxide 31 H 28 (22-30) mmol/L BUN 32 H 35 H (7-17) mg/dL Creatinine 1.11 H 0.98 (0.52-1.04) mg/dL Glucose 265 H 327 H (74-99) mg/dL Calcium 10.0 10.0 (8.4-10.2) mg/dL AST 45 H 79 H (14-36) U/L ALT 47 H 64 H (4-34) U/L Alkaline Phosphatase 155 H 148 H (38-126) U/L Total Protein 6.4 6.1 L (6.3-8.2) g/dL Albumin 3.6 3.3 L (3.5-5.0) g/dL Current Medications Generic Name Dose Route Start Last Admin Trade Name Freq PRN Reason Stop Dose Admin Albuterol Sulfate 2.5 mg 06/28/24 02:09 Albuterol Nebulized 2.5 Mg/3 Ml INHALATION RT-QID PRN Shortness Of Breath Atorvastatin Calcium 10 mg 06/28/24 17:30 Atorvastatin 10 Mg Tab PO W/SUPPER AMY Dextrose/Water 25 ml 06/28/24 02:46 Dextrose 50% Syringe 50 Ml IVP PER PROTOCOL PRN Hypoglycemia Protocol Dextrose/Water 50 ml 06/28/24 02:46 Dextrose 50% Syringe 50 Ml IVP PER PROTOCOL PRN Hypoglycemia Protocol Furosemide 40 mg 06/28/24 09:00 06/28/24 08:23 Furosemide 40 Mg Tab PO 40 mg DAILY AMY Administration Hydromorphone HCl 0.5 mg 06/28/24 01:27 06/28/24 08:35 Hydromorphone 0.5 Mg/0.5 Ml Syringe IVP 0.5 mg Q3HR PRN Administration Pain Insulin Human Lispro 0 unit 06/28/24 12:30 Insulin Lispro (Humalog) 100 Unit/Ml 10 Ml Vl SQ ACHS [facility] Protocol Lidocaine 1 patch 06/28/24 09:00 06/28/24 08:23 Lidocaine 4% Patch TOPICAL 1 patch DAILY [facility] Administration Protocol Metoprolol Tartrate 12.5 mg 06/29/24 09:00 Metoprolol Tartrate 12.5 Mg Tab PO DAILY [facility] Multivitamins/Minerals 1 each 06/28/24 09:00 06/28/24 08:59 Vit A,C & B-Wymxjn-Xwqevmod 1 Each Tab PO Not Given DAILY [facility] Naloxone HCl 0.2 mg 06/28/24 02:02 Naloxone 0.4 Mg/Ml 1 Ml Vial IV Q2M PRN Opioid Reversal Ondansetron HCl 4 mg 06/28/24 02:02 06/28/24 03:13 Ondansetron 4 Mg/2 Ml Vial IVP 4 mg Q8HR PRN Administration Nausea And Vomiting Pantoprazole Sodium 40 mg 06/28/24 09:00 06/28/24 08:23 Pantoprazole 40 Mg/10 Ml Vial IV 40 mg DAILY [facility] Administration Paroxetine HCl 40 mg 06/28/24 09:00 06/28/24 08:23 Paroxetine 20 Mg Tab PO 40 mg DAILY [facility] Administration Intake and Output 06/27/24 06/28/24 06/28/24 22:59 06:59 14:59 Intake Total 271.500 Balance 271.500 Intake: IV 260 .9 @20 240 Invasive Line 1 10 Invasive Line 2 10 Intake, IV Titration 11.500 Amount Diltiazem 125 mg In 11.500 Dextrose 5% in Water 100 ml @ 5 MG/HR 5 mls/hr IV .Q24H [facility] Rx#:[id number] Other: Voiding Method Diaper External Catheter Weight 108.862 kg 06/27/24 23:54 06/28/24 04:00
[2024-06-28 11:55] LABS: Glucose,Whole Blood 279 mg/dL (70-110)
--- NOTE | 2024-06-28 12:04 | CA ---
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 Procedure CPT: Indications: afib, sick sinus Cardiac Hx: Technical Quality: Poor Contrast 1: Definity Total Dose (mL): 2 Contrast 2: Total Dose (mL): MEASUREMENTS (Male / Female) Normal Values 2D ECHO LV Diastolic Diameter PLAX 4.1 cm 4.2 - 5.9 / 3.9 - 5.3 cm IVS Diastolic Thickness 1.3 cm 0.6 - 1.0 / 0.6 - 0.9 cm LVPW Diastolic Thickness 1.6 cm 0.6 - 1.0 / 0.6 - 0.9 cm LV Relative Wall Thickness 0.7 RV Internal Dim ED PLAX 2.6 cm LVOT Diameter 2.0 cm M-MODE Aortic Root Diameter MM 3.3 cm LA Systolic Diameter MM 4.6 cm LA Ao Ratio MM 1.4 AV Cusp Separation MM 1.6 cm DOPPLER AV Peak Velocity 152.5 cm/s AV Peak Gradient 9.3 mmHg AV Mean Velocity 124.7 cm/s AV Mean Gradient 7.6 mmHg AV Velocity Time Integral 43.1 cm LVOT Peak Velocity 133.0 cm/s LVOT Peak Gradient 7.1 mmHg LVOT Velocity Time Integral 33.8 cm LVOT Stroke Volume 110.8 cm??? LVOT Stroke Volume Index 54.3 ml/m??? LVOT Cardiac Index 3931.3 cm???/min???m??? AV Area Cont Eq vti 2.6 cm??? AV Area Cont Eq pk 2.9 cm??? MV Peak Velocity 105.9 cm/s MV Peak Gradient 4.5 mmHg MV Mean Velocity 69.4 cm/s MV Mean Gradient 2.1 mmHg MV Velocity Time Integral 29.8 cm MV Area PHT 2.6 cm??? Mitral E Point Velocity 73.4 cm/s Mitral A Point Velocity 102.5 cm/s Mitral E to A Ratio 0.7 MV Deceleration Time 291.1 ms TR Peak Velocity 154.3 cm/s TR Peak Gradient 9.5 mmHg FINDINGS Left Ventricle Left ventricular ejection fraction is estimated at 55-60 %. Normal left ventricular systolic function with no obvious regional wall motion abnormalities. Left ventricular cavity size normal. Moderately increased left ventricular wall thickness. Right Ventricle Normal right ventricular size and function. Right ventricular systolic pressure within normal limits. Right Atrium Moderate right atrial dilatation. Left Atrium Severe left atrial dilatation. Mitral Valve Severe mitral annular calcification. Mild mitral regurgitation. Aortic Valve Trileaflet aortic valve. No aortic valve stenosis or regurgitation. Diffuse thickening (sclerosis) of the aortic valve cusps without reduced excursion.aortic valve sclerosis. Tricuspid Valve Structurally normal tricuspid valve.mild tricuspid regurgitation. Pulmonic Valve Pulmonic valve not well visualized. No pulmonic stenosis. Pericardium Small pericardial effusion. No pleural effusion. Aorta Normal size aortic root and proximal ascending aorta. CONCLUSIONS Definity ECHO contrast used for improved visualization of the endocardial borders (inadequate visualization of two or more contiguous segments). Technically difficult study. Normal left ventricular size and systolic function Mild mitral and tricuspid regurgitation with no evidence of pulmonary hypertension Previewed by: Dr. Max Mims MD (Electronically Signed) Final Date: 28 June 2024 12:03
[2024-06-28] MEDS ORDERED: IPRATROPIUM-ALBUTEROL 3 ML NEB INHALATION PRN (12:17)
--- NOTE | 2024-06-28 12:26 | P.PN ---
Subjective Progress Note Date: 06/28/24 Hospital Course: An 88-year-old female with past medical history of A-fib on Eliquis, COPD on h ome oxygen 3 L NC, type II DM on insulin, HLD, hypothyroidism, hiatal hernia, obesity, remote smoking, GERD, anxiety, who presented for ground-level fall, underwent extensive workup in the ER, pelvic and femoral x-ray showed left comminuted intertrochanteric hip fracture. She was also found to be in EMMANUEL and was started on IV fluids, sound physicians consulted for medical management. Eliquis was on hold. Patient went into A-fib with RVR with heart rate ranging between 110s and 150s, she received Cardizem oral 150 mg once, no improvement, patient then received IV Lopressor 5 mg once and transferred to 3 S. with telemetry. Cardiology consulted, recommended TTE, started patient on metoprolol 12.5 mg p.o. daily. 06/28: Patient seen and examined at bedside, she is very hard of hearing, not in acute distress, denied chest pain, palpitations, shortness of breath. TTE is pending Pertinent positives and negatives as discussed above, a complete review of systems was performed and all other systems are negative. Vitals Signs Reviewed. General: [nontoxic], [no distress], [appears at stated age] Derm: [warm], [dry], extensive seborrheic keratosis Head: [atraumatic], [normocephalic], [symmetric] Eyes: [EOMI], [no lid lag], [anicteric sclera] Mouth: [no lip lesion], [mucus membranes moist] Cardiovascular: [S1S2 irreg], [no murmur] Lungs: [CTA bilateral], [no rhonchi, no rales] , [no accessory muscle use] Abdominal: [soft], [ nontender to palpation], [no guarding], [no appreciable organomegaly] Ext: [no gross muscle atrophy], [no edema], [no contractures] Neuro: [ CN II-XI grossly intact], [no focal neuro deficits] Psych: [Alert], [oriented], [appropriate affect] Assessment and Plan: Paroxysmal A-fib with RVR Sick sinus syndrome -Cardiology consulted, appreciate recommendations -TTE ordered and pending - Cardiology started patient on metoprolol 12.5 p.o. 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, unknown baseline -Patient received IV hydration, currently no IV fluids -Creatinine normal, follow-up BMP daily Type II DM on insulin -Continue home Lantus -A1c pending -Increased sliding scale insulin to moderate, continue Accu-Cheks, monitor for hypoglycemia Left intertrochanteric hip fracture -Management per primary team Elevated liver enzymes -AST and ALT elevated this morning again, repeat in the morning, no abdominal symptoms, consider imaging if continues to rise Chronic hypoxic respiratory failure secondary to COPD on home oxygen 3 L - Not in exacerbation - Continue supplemental oxygen - Continue home albuterol as needed, will order DuoNebs every 6 hours as needed Depression, anxiety: Continue home paroxetine 40 mg daily Hypothyroidism: Continue home Synthroid 75 mcg p.o. daily Chronic lower extremity edema continue home Lasix 40 mg daily Hyperlipidemia: Continue statins, Lipitor 10 mg p.o. daily GERD: Continue home Protonix 40 mg daily Extensive seborrheic keratosis: Possible GI malignancy, follow-up with PCP if desired to pursue further investigation I have reviewed the following government operations consultant notes: Cardiology I have reviewed the results of the following tests: CBC, CMP I have ordered the following tests: CBC and CMP I have discussed the care of this patient with the following independent historian: I have independently interpreted the following test below: As above I have discussed the management of this patient with the following physician: DVT ppx: SCD Objective - Vital Signs Vital signs: Vital Signs Temp 98.4 F 06/28/24 11:46 Pulse 66 06/28/24 11:46 Resp 18 06/28/24 11:46 BP 100/48 06/28/24 11:46 Pulse Ox 96 06/28/24 11:46 FiO2 Intake & Output 06/27/24 06/28/24 06/28/24 18:59 06:59 18:59 Intake Total 271.500 Balance 271.500 Weight 108.862 kg Intake: IV 260 .9 @20 240 Invasive Line 1 10 Invasive Line 2 10 Intake, IV Titration 11.500 Amount Diltiazem 125 mg In 11.500 Dextrose 5% in Water 100 ml @ 5 MG/HR 5 mls/hr IV .Q24H [facility] Rx#:[id number] Other: Voiding Method Diaper External Catheter - Labs CBC & Chem 7: 06/27/24 23:54 06/28/24 04:00 Labs: Abnormal Lab Results - Last 24 Hours (Table) 06/27/24 06/27/24 06/27/24 Range/Units 23:54 23:54 23:54 WBC 11.91 H (4.50-10.00) 10*3/uL MCV 97.4 H (80.0-97.0) fL Immature Gran # 0.05 H (0.00-0.04) 10*3/uL Neutrophils # 10.08 H (1.80-7.70) 10*3/uL Carbon Dioxide 31 H (22-30) mmol/L BUN 32 H (7-17) mg/dL Creatinine 1.11 H (0.52-1.04) mg/dL Glucose 265 H (74-99) mg/dL POC Glucose (mg/dL) (70-110) mg/dL Hemoglobin A1c 8.1 H (<=6.0) % AST 45 H (14-36) U/L ALT 47 H (4-34) U/L Alkaline Phosphatase 155 H (38-126) U/L Total Protein (6.3-8.2) g/dL Albumin (3.5-5.0) g/dL 06/28/24 06/28/24 06/28/24 Range/Units 04:00 06:24 06:52 WBC (4.50-10.00) 10*3/uL MCV (80.0-97.0) fL Immature Gran # (0.00-0.04) 10*3/uL Neutrophils # (1.80-7.70) 10*3/uL Carbon Dioxide (22-30) mmol/L BUN 35 H (7-17) mg/dL Creatinine (0.52-1.04) mg/dL Glucose 327 H (74-99) mg/dL POC Glucose (mg/dL) 342 H 325 H (70-110) mg/dL Hemoglobin A1c (<=6.0) % AST 79 H (14-36) U/L ALT 64 H (4-34) U/L Alkaline Phosphatase 148 H (38-126) U/L Total Protein 6.1 L (6.3-8.2) g/dL Albumin 3.3 L (3.5-5.0) g/dL 06/28/24 06/28/24 Range/Units 07:15 11:41 WBC (4.50-10.00) 10*3/uL MCV (80.0-97.0) fL Immature Gran # (0.00-0.04) 10*3/uL Neutrophils # (1.80-7.70) 10*3/uL Carbon Dioxide (22-30) mmol/L BUN (7-17) mg/dL Creatinine (0.52-1.04) mg/dL Glucose (74-99) mg/dL POC Glucose (mg/dL) 331 H 279 H (70-110) mg/dL Hemoglobin A1c (<=6.0) % AST (14-36) U/L ALT (4-34) U/L Alkaline Phosphatase (38-126) U/L Total Protein (6.3-8.2) g/dL Albumin (3.5-5.0) g/dL
--- NOTE | 2024-06-28 13:57 | P.HPOR ---
History of Present Illness H&P Date: 06/28/24 Chief Complaint: Left intertrochanteric hip fracture Patient is a 88-year-old female with paroxysmal atrial fibrillation, COPD (on 3 L home oxygen), type 2 diabetes, GERD, A-fib (on Eliquis), anxiety/depression, chronic leg swelling, hypothyroidism (not on medications) who presented to the [facility] emergency department on 06/27/2024 status post ground-level fall. Per chart review, patient was reported to have tried to reach for her oxygen tank from her wheelchair and she fell forward to the ground. Patient ambulates with a wheelchair and has had multiple falls in the past year and multiple broken ribs due to side falls. Pelvic and left femur x-rays show c omminuted left intertrochanteric hip fracture. Patient was admitted to orthopedics Dr. Barnhart. Per nursing staff patient's baseline is alert and oriented to time and sometimes place. Past Medical History Past Medical History: COPD, Diabetes Mellitus, Thyroid Disorder Additional Past Medical History / Comment(s): Hard of hearing History of Any Multi-Drug Resistant Organisms: None Reported Past Surgical History: Adenoidectomy, Cholecystectomy, Hysterectomy Past Anesthesia/Blood Transfusion Reactions: No Reported Reaction Past Psychological History: No Psychological Hx Reported Smoking Status: Former smoker Past Alcohol Use History: None Reported Past Drug Use History: None Reported Medications and Allergies Home Medications Medication Instructions Recorded Confirmed Type Calcium Carbonate [Calcium] 600 mg PO DAILY 01/09/23 06/28/24 History Eye Health Complex Supplement 1 tab PO DAILY 01/09/23 06/28/24 History Lovastatin [Mevacor] 20 mg PO HS 01/09/23 06/28/24 History Omeprazole 40 mg PO BID 01/09/23 06/28/24 History PARoxetine HCL 40 mg PO DAILY 01/09/23 06/28/24 History Pedi Multivit No.25/Folic Acid 300 mcg PO DAILY 01/09/23 06/28/24 History [Flintstones Multivit Chew Tab] Apixaban [Eliquis] 2.5 mg PO BID 06/28/24 06/28/24 History Diltiazem Cd [Cardizem CD] 180 mg PO HS 06/28/24 06/28/24 History Furosemide [Lasix] 40 mg PO DAILY 06/28/24 06/28/24 History Insulin Aspart (Niacinamide) 10 units SQ TID-W/MEALS 06/28/24 06/28/24 History [Fiasp 100 Unit/ml Flextouch Pen] Insulin Glargine,Hum.rec.anlog 45 units SQ W/BRKFST 06/28/24 06/28/24 History [Lantus Solostar Pen] Levothyroxine Sodium [Synthroid] 75 mcg PO AC-BRKFST 06/28/24 06/28/24 History Allergies Allergy/AdvReac Type Severity Reaction Status Date / Time adenosine Allergy Anaphylaxis Verified 06/28/24 07:39 Influenza Virus Vaccines Allergy Anaphylaxis Verified 06/28/24 07:39 egg AdvReac Diarrhea Verified 06/28/24 07:39 flu vaccine Allergy Anaphylaxis Uncoded 06/28/24 07:39 Physical Examination Patient was examined at bedside. Patient was awake, but not verbally responsive. Her head appears atraumatic and normocephalic. No obvious deformity to the bilateral upper extremities. A tertiary exam can be conducted when she is more alert. A focused exam of the left lower extremity was conducted. The left lower extremity appears shortened and externally rotated. Bilateral diffuse lower extremity edema. Patient has pain with any attempts of passive range of motion. Patient did not react to palpation of knee, lower leg, ankle or foot. Dorsalis pedis pulse palpable. Foot appears well-perfused and warm to touch, capillary refill under 2 seconds. Exam limited due to patient's cognition. Results - Labs Labs: Abnormal Lab Results - Last 24 Hours (Table) 06/27/24 06/27/24 06/27/24 Range/Units 23:54 23:54 23:54 WBC 11.91 H (4.50-10.00) 10*3/uL MCV 97.4 H (80.0-97.0) fL Immature Gran # 0.05 H (0.00-0.04) 10*3/uL Neutrophils # 10.08 H (1.80-7.70) 10*3/uL Carbon Dioxide 31 H (22-30) mmol/L BUN 32 H (7-17) mg/dL Creatinine 1.11 H (0.52-1.04) mg/dL Glucose 265 H (74-99) mg/dL POC Glucose (mg/dL) (70-110) mg/dL Hemoglobin A1c 8.1 H (<=6.0) % AST 45 H (14-36) U/L ALT 47 H (4-34) U/L Alkaline Phosphatase 155 H (38-126) U/L Total Protein (6.3-8.2) g/dL Albumin (3.5-5.0) g/dL 06/28/24 06/28/24 06/28/24 Range/Units 04:00 06:24 06:52 WBC (4.50-10.00) 10*3/uL MCV (80.0-97.0) fL Immature Gran # (0.00-0.04) 10*3/uL Neutrophils # (1.80-7.70) 10*3/uL Carbon Dioxide (22-30) mmol/L BUN 35 H (7-17) mg/dL Creatinine (0.52-1.04) mg/dL Glucose 327 H (74-99) mg/dL POC Glucose (mg/dL) 342 H 325 H (70-110) mg/dL Hemoglobin A1c (<=6.0) % AST 79 H (14-36) U/L ALT 64 H (4-34) U/L Alkaline Phosphatase 148 H (38-126) U/L Total Protein 6.1 L (6.3-8.2) g/dL Albumin 3.3 L (3.5-5.0) g/dL 06/28/24 06/28/24 Range/Units 07:15 11:41 WBC (4.50-10.00) 10*3/uL MCV (80.0-97.0) fL Immature Gran # (0.00-0.04) 10*3/uL Neutrophils # (1.80-7.70) 10*3/uL Carbon Dioxide (22-30) mmol/L BUN (7-17) mg/dL Creatinine (0.52-1.04) mg/dL Glucose (74-99) mg/dL POC Glucose (mg/dL) 331 H 279 H (70-110) mg/dL Hemoglobin A1c (<=6.0) % AST (14-36) U/L ALT (4-34) U/L Alkaline Phosphatase (38-126) U/L Total Protein (6.3-8.2) g/dL Albumin (3.5-5.0) g/dL H & H 06/27/24 Range/Units 23:54 Hgb 13.3 (12.0-15.0) g/dL Hct 40.8 (37.2-46.3) % Coagulation 06/27/24 Range/Units 23:54 INR 1.0 (<1.2) Result Diagrams: 06/27/24 23:54 06/28/24 04:00 Assessment and Plan Assessment: Left intertrochanteric hip fracture from ground level fall Paroxysmal atrial fibrillation. COPD. Type 2 diabetes. Multiple medical problems. Plan: Images have been reviewed and demonstrate a left comminuted intertrochanteric hip fracture. Case has been discussed with attending Dr. Herminio Barnhart. Patient is pending echocardiogram per cardiology service. Appreciate internal medicine and cardiology for medical management of this patient. Patient to be on bedrest. DVT prophylaxis with SCDs. Please hold Eliquis. Treatment recommendations are operative fixation with intramedullary hip screw. Patient may eat today. Patient will be n.p.o. at midnight. Plan will be for surgical fixation tomorrow around noon.
[2024-06-28] MEDS: PANTOPRAZOLE 40 MG TABLET PO SCH (17:01)
[2024-06-28] MEDS: ATORVASTATIN 10 MG TAB PO SCH (17:01)
[2024-06-28 17:02] LABS: Glucose,Whole Blood 318 mg/dL (70-110)
[2024-06-28 20:59] LABS: Glucose,Whole Blood 220 mg/dL (70-110)
[2024-06-28] MEDS ORDERED: DILTIAZEM ORAL 60 MG TAB PO SCH (21:00)
[2024-06-29 06:04] LABS: Glucose,Whole Blood 291 mg/dL (70-110)
[2024-06-29] MEDS: LEVOTHYROXINE 75 MCG TAB PO SCH (06:41)
[2024-06-29] MEDS: METOPROLOL TARTRATE 12.5 MG TAB PO SCH (06:41)
[2024-06-29 07:03] LABS: Basophils # (A) 0.02 10*3/uL (0.00-0.10); Basophils % (A) 0.3 %; Eosinophils # (A) 0.02 10*3/uL (0.04-0.35); Eosinophils % (A) 0.3 %; HCT 33.9 % (37.2-46.3); HGB 10.7 g/dL (12.0-15.0); Lymphocytes # (A) 1.14 10*3/uL (0.90-5.00); Lymphocytes % (A) 16.2 %; MCHC 31.6 g/dL (32.0-37.0); MCV 101.5 fL (80.0-97.0); Mean Platelet Volume 11.3 fL (9.5-12.2); Monocytes # (A) 0.72 10*3/uL (0.20-1.00); Monocytes % (A) 10.2 %; Neutrophils # (A) 5.12 10*3/uL (1.80-7.70); Neutrophils % (A) 72.7 %; Platelet Count 241 10*3/uL (140-440); RBC 3.34 10*6/uL (4.10-5.20); RDW 13.5 % (11.5-14.5); WBC 7.04 10*3/uL (4.50-10.00)
[2024-06-29 07:40] LABS: ALT 653 U/L (4-34); AST 564 U/L (14-36); African American GFR (CKD) 20 (>60 ml/min/1.73 sqM); Albumin 3.2 g/dL (3.5-5.0); Alkaline Phosphatase 207 U/L (38-126); Anion Gap 6 mmol/L; Blood Urea Nitrogen 58 mg/dL (7-17); Calcium 9.5 mg/dL (8.4-10.2); Carbon Dioxide 29 mmol/L (22-30); Chloride 102 mmol/L (98-107); Glucose 274 mg/dL (74-99); Non-African American GFR(CKD) 17 (>60 ml/min/1.73 sqM); Potassium 5.2 mmol/L (3.5-5.1); Sodium 137 mmol/L (137-145); Total Protein 5.7 g/dL (6.3-8.2)
--- NOTE | 2024-06-29 08:10 | P.PN ---
Progress Note - Text Patient seen this morning. Left LE examined. Plan for surgery later today. Keep NPO and on bed rest.
--- NOTE | 2024-06-29 09:41 | P.PN ---
Subjective Progress Note Date: 06/29/24 Requesting physician: Barbie Patel Reason for Consult (text): afib RVR History of present illness: Patient is a 88 year old female with past medical history of COPD, diabetes mellitus, hypothyroidism, atrial fibrillation presented to the ED for a ground- level fall and is found to have left intertrochanteric fracture. Patient seen today for cardiology consultation for atrial fibrillation with rapid ventricular rate. Last night patient's heart rate was 110-150s on telemetry, patient was cooperative and not in distress patient was found to be in A-fib with RVR and was given diltiazem 180 mg p.o. once. A couple hours later the patient's heart rate did not improve and was administered Lopressor 5 mg IV and was transferred to [facility] with telemetry. Upon reviewing of the rhythm strip, patient was found to have long conversion pauses. Patient is known to have paroxysmal atrial fibrillation and is on Eliquis 2.5 mg p.o. twice daily and Cardizem 180 mg p.o. at bedtime at home. Vitals T 99.1 F, AK 122 bpm, RR 18, BP 108/61, SPO2 95% on 3 L oxygen via nasal cannula EKG independently interpreted as atrial fibrillation with rapid ventricular response, rate 129 bpm, QTc 479 ms Chest x-ray shows small left effusion Head and cervical spine CT shows no acute intracranial hemorrhage, midline shift or mass effect Labs show WBC 11.91, hemoglobin 13.3, platelet count 278, INR 1, potassium 4.8, magnesium 2, creatinine 0.98, AST 79, ALT 64, glucose 331 06/29 Patient seen and examined. Patient remains in a sinus rhythm. EF 55 to 60%, no pulmonary hypertension, mild mitral and tricuspid regurgitation. Blood pressure 144/68, heart rate 87, pulse ox 95% on 3 L nasal cannula. Repeat blood work reveals hemoglobin of 10.7, BUN 58 and creatinine 2.47. Orthopedics is planning for surgery later today. Patient is NPO. Physical examination: Vital signs reviewed GENERAL: This is a 88-year-old obese female in no acute respiratory distress. HEENT: Head is atraumatic, normocephalic. Pupils equal, round. Sclerae is anicteric. NECK: Supple. No JVD. LUNGS: Clear to auscultation. No wheezes or rhonchi. No intercostal retractions. HEART: Regular rate and rhythm. ABDOMEN: Soft No tenderness. EXTREMITIES: No pedal edema. No calf tenderness. NEUROLOGICAL: Patient is awake Assessment: Left intratrochanteric hip fracture scheduled for surgery 06/29 Paroxysmal atrial fibrillation with episode of RVR, currently in sinus rhythm Underlying sick sinus syndrome Type 2 diabetes COPD Hyperlipidemia Hypothyroidism Acute kidney injury Plan: Continue metoprolol 12.5 mg p.o. daily Hold Eliquis until cleared by orthopedic surgery Resume home cardiac medications Start patient on IV fluids D5.9 normal saline at 75 cc/h BMP in the morning further recommendations to follow based upon clinical course Nurse practitioner note has been reviewed, I agree with documented findings and plan of care. Patient was seen and examined. Objective - Vital Signs Vital signs: Vital Signs Temp 98.5 F 06/28/24 23:35 Pulse 87 06/29/24 04:50 Resp 21 06/29/24 04:50 BP 144/68 06/29/24 04:50 Pulse Ox 95 06/29/24 04:50 FiO2 Intake & Output 06/28/24 06/29/24 06/29/24 18:59 06:59 18:59 Intake Total 421.500 40 Output Total 300 Balance 421.500 -260 Intake: IV 260 40 .9 @20 240 Invasive Line 1 10 20 Invasive Line 2 10 20 Intake, IV Titration 11.500 Amount Diltiazem 125 mg In 11.500 Dextrose 5% in Water 100 ml @ 5 MG/HR 5 mls/hr IV .Q24H [facility] Rx#:[id number] Oral 150 Output: Urine 300 Other: Voiding Method Diaper Indwelling Catheter External Catheter - Labs CBC & Chem 7: 06/29/24 06:18 06/29/24 06:18 Labs: Abnormal Lab Results - Last 24 Hours (Table) 06/27/24 06/28/24 06/28/24 Range/Units 23:54 11:41 16:51 RBC (4.10-5.20) 10*6/uL Hgb (12.0-15.0) g/dL Hct (37.2-46.3) % MCV (80.0-97.0) fL MCHC (32.0-37.0) g/dL Eosinophils # (0.04-0.35) 10*3/uL Potassium (3.5-5.1) mmol/L BUN (7-17) mg/dL Creatinine (0.52-1.04) mg/dL Glucose (74-99) mg/dL POC Glucose (mg/dL) 279 H 318 H (70-110) mg/dL Hemoglobin A1c 8.1 H (<=6.0) % AST (14-36) U/L ALT (4-34) U/L Alkaline Phosphatase (38-126) U/L Total Protein (6.3-8.2) g/dL Albumin (3.5-5.0) g/dL 06/28/24 06/29/24 06/29/24 Range/Units 20:57 06:02 06:18 RBC 3.34 L (4.10-5.20) 10*6/uL Hgb 10.7 L (12.0-15.0) g/dL Hct 33.9 L (37.2-46.3) % MCV 101.5 H (80.0-97.0) fL MCHC 31.6 L (32.0-37.0) g/dL Eosinophils # 0.02 L (0.04-0.35) 10*3/uL Potassium (3.5-5.1) mmol/L BUN (7-17) mg/dL Creatinine (0.52-1.04) mg/dL Glucose (74-99) mg/dL POC Glucose (mg/dL) 220 H 291 H (70-110) mg/dL Hemoglobin A1c (<=6.0) % AST (14-36) U/L ALT (4-34) U/L Alkaline Phosphatase (38-126) U/L Total Protein (6.3-8.2) g/dL Albumin (3.5-5.0) g/dL 06/29/24 Range/Units 06:18 RBC (4.10-5.20) 10*6/uL Hgb (12.0-15.0) g/dL Hct (37.2-46.3) % MCV (80.0-97.0) fL MCHC (32.0-37.0) g/dL Eosinophils # (0.04-0.35) 10*3/uL Potassium 5.2 H (3.5-5.1) mmol/L BUN 58 H (7-17) mg/dL Creatinine 2.47 H (0.52-1.04) mg/dL Glucose 274 H (74-99) mg/dL POC Glucose (mg/dL) (70-110) mg/dL Hemoglobin A1c (<=6.0) % AST 564 H (14-36) U/L ALT 653 H (4-34) U/L Alkaline Phosphatase 207 H (38-126) U/L Total Protein 5.7 L (6.3-8.2) g/dL Albumin 3.2 L (3.5-5.0) g/dL
[2024-06-29] MEDS: DEXTROSE 5%-0.9% NACL 1,000 ML IV SCH (09:43)
--- NOTE | 2024-06-29 11:17 | P.PN ---
Subjective Progress Note Date: 06/29/24 88-year-old female with COPD (on 3 L home oxygen), diabetes, GERD, A-fib (on Eliquis), anxiety/depression, chronic leg swelling, hypothyroidism (not on medications) here for ground-level fall. Patient was reported to have tried to reach her oxygen tank from her wheelchair and she fell forward to the ground. Her daughter mentioned that she did not hit her head or lose consciousness at the time of the fall. T 98.2 F, HR 82, RR 18, BP 109/85, O2 sat 96% on 3 L NC. WBC 11.9, hemoglobin 13.3, sodium 138, potassium 4.5, bicarb 31, BUN 32, creatinine 1.11, glucose 265, AST 45, ALT 47, alk phos 155, calcium 10. CT head shows no acute intracranial hemorrhage, midline shift or mass effect. Chest x- ray showed small left pleural effusion and cardiomegaly. Pelvic and femur left x-ray showed comminuted left intertrochanteric hip fracture. Patient is admitted to Orthopedic surgery with [facility] on consultation. Overnight, patient was found to be in A-Fib RVR on telemetry. She was started on Cardizem drip and Cardiology was consulted. Orthopedic Sx consulted, plans for OR on 06/29. 06/29 Patient was seen and examined. Sleeping comfortably. HR in the 80s this morning on telemetry. Echo shows EF 55-60%. CBC shows RBC 3.34, Hg 10.7, Hct 33.9, MCV 101.5. BMP shows K 5.2, BUN 58, Cr 2.47, glu 274, AST 564, ALT 653, alk phos 207, alb 3.2. A1c 8.1. Ammonia < 9. General: non toxic, no distress, appears older than stated age Derm: warm, dry Head: atraumatic, normocephalic, symmetric Mouth: no lip lesion, mucus membranes moist Cardiovascular: good distal perfusion in all 4 extremities Lungs: breathing comfortably, no accessory muscle use Ext: no gross muscle atrophy, no edema, no contractures Based on my assessment of this patient, this patient meets a high complexity level of care. 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 Stop Lasix. Continue D5 NS at 75 cc/hr. Obtain renal and bladder US. Bladder scan PRN. Obtain UA. Avoid nephrotoxins. Nephrology consult. Paroxysmal A-fib with RVR: Metoprolol 12.5 mg PO QD. Echo as above. Telemetry monitoring. K > 4 and Mg > 2. AC after surgery. Cardiology on board. Type II DM: A1c 8.1. ISS with Accuchecks ACHS along with hypoglycemic precautions. Transaminitis: Likely prerenal. Stop Lipitor. Obtain liver US. Chronic hypoxic respiratory failure secondary to COPD on home oxygen 3 L: DuoNeb QID PRN. Depression and anxiety: Paroxetine 40 mg PO QD Hypothyroidism: Synthroid 75 mcg PO QD. Hyperlipidemia: Lipitor on hold as above. GERD: Protonix 40 mg PO QD. Extensive seborrheic keratosis: Possible GI malignancy. Follow-up with PCP if desired to pursue further investigation. Left intertrochanteric hip fracture managed by Orthopedic Sx. CODE STATUS: NO CODE DVT Prophylaxis: SCD GI Prophylaxis: Protonix PO Designated medical POA if patient is not able to make medical decisions for themselves: I have reviewed the following [employer] product consultant notes: Ortho, Cardiology. I have reviewed the results of the following tests: As above. I have ordered the following tests: Renal US, Liver US. CBC and CMP in the AM. I have discussed the care of this patient with the following independent historian: Daughter I have independently interpreted the following test below: I have discussed the management of this patient with the following physician: Objective - Vital Signs Vital signs: Vital Signs Temp 98.5 F 06/28/24 23:35 Pulse 87 06/29/24 04:50 Resp 21 06/29/24 04:50 BP 144/68 06/29/24 04:50 Pulse Ox 95 06/29/24 04:50 FiO2 Intake & Output 06/28/24 06/29/24 06/29/24 18:59 06:59 18:59 Intake Total 421.500 40 Output Total 300 Balance 421.500 -260 Intake: IV 260 40 .9 @20 240 Invasive Line 1 10 20 Invasive Line 2 10 20 Intake, IV Titration 11.500 Amount Diltiazem 125 mg In 11.500 Dextrose 5% in Water 100 ml @ 5 MG/HR 5 mls/hr IV .Q24H [facility] Rx#:[id number] Oral 150 Output: Urine 300 Other: Voiding Method Diaper Indwelling Catheter External Catheter - Labs CBC & Chem 7: 06/29/24 06:18 06/29/24 06:18 Labs: Abnormal Lab Results - Last 24 Hours (Table) 06/27/24 06/28/24 06/28/24 Range/Units 23:54 11:41 16:51 RBC (4.10-5.20) 10*6/uL Hgb (12.0-15.0) g/dL Hct (37.2-46.3) % MCV (80.0-97.0) fL MCHC (32.0-37.0) g/dL Eosinophils # (0.04-0.35) 10*3/uL POC Glucose (mg/dL) 279 H 318 H (70-110) mg/dL Hemoglobin A1c 8.1 H (<=6.0) % 06/28/24 06/29/24 06/29/24 Range/Units 20:57 06:02 06:18 RBC 3.34 L (4.10-5.20) 10*6/uL Hgb 10.7 L (12.0-15.0) g/dL Hct 33.9 L (37.2-46.3) % MCV 101.5 H (80.0-97.0) fL MCHC 31.6 L (32.0-37.0) g/dL Eosinophils # 0.02 L (0.04-0.35) 10*3/uL POC Glucose (mg/dL) 220 H 291 H (70-110) mg/dL Hemoglobin A1c (<=6.0) %
[2024-06-29] MEDS ORDERED: NEOSTIGMINE 1 MG/ML 10 ML VIAL ONE (11:35)
[2024-06-29] MEDS ORDERED: LIDOCAINE 1% INJ 10MG/ML (20 ML MDV) ONE (11:35)
[2024-06-29] MEDS ORDERED: PHENYLEPHRINE 10 MG/ML VIAL ONE (11:35)
[2024-06-29] MEDS ORDERED: TRANEXAMIC 1,000 MG/100ML-NACL PREMIX BAG ONE (11:35)
[2024-06-29] MEDS ORDERED: PROPOFOL 10 MG/ML 20 ML VIAL IV ONE (11:35)
[2024-06-29] MEDS ORDERED: GLYCOPYRROLATE 0.2 MG/ML 2 ML VIAL ONE (11:35)
[2024-06-29] MEDS ORDERED: fentaNYL (PF) 50 MCG/ML 2 ML AMP ONE (11:35)
[2024-06-29] MEDS ORDERED: SUCCINYLCHOLINE CHLORIDE 200 MG/10 ML VIAL IV ONE (11:35)
[2024-06-29] MEDS ORDERED: ROCURONIUM 10 MG/ML (5 ML VIAL) IV ONE (11:35)
[2024-06-29] MEDS: SODIUM CHLORIDE 0.9% 50 ML with ceFAZolin 2,000 MG IV ONE (11:42)
[2024-06-29] MEDS: DEXTROSE 5%-0.45% NACL 1,000 ML IV ONE (11:42)
--- NOTE | 2024-06-29 11:42 | P.NPCON ---
History of Present Illness - Reason for Consult acute renal failure - History of Present Illness Patient is an 88-year-old female with history of COPD, type 2 diabetes, chronic A-fib who is admitted to the hospital with a fall. Patient sustained a left intertrochanteric hip fracture and is scheduled for surgery today. No history of kidney diseases Serum creatinine was 0.9 yesterday and increased to 2.4 today. Patient has an indwelling Parsons catheter Blood pressure has been borderline low with systolic at 100 to 102 mmHg. Patient was maintained on Lasix which is now discontinued. Started on IV fluids today Patient was also in A-fib and was maintained on Cardizem drip, now switched to metoprolol. Heart rate about 80/min. Past Medical History Past Medical History: COPD, Diabetes Mellitus, Thyroid Disorder Additional Past Medical History / Comment(s): Hard of hearing History of Any Multi-Drug Resistant Organisms: None Reported Past Surgical History: Adenoidectomy, Cholecystectomy, Hysterectomy Past Anesthesia/Blood Transfusion Reactions: No Reported Reaction Past Psychological History: No Psychological Hx Reported Smoking Status: Former smoker Past Alcohol Use History: None Reported Past Drug Use History: None Reported Medications and Allergies Home Medications Medication Instructions Recorded Confirmed Type Calcium Carbonate [Calcium] 600 mg PO DAILY 01/09/23 06/28/24 History Eye Health Complex Supplement 1 tab PO DAILY 01/09/23 06/28/24 History Lovastatin [Mevacor] 20 mg PO HS 01/09/23 06/28/24 History Omeprazole 40 mg PO BID 01/09/23 06/28/24 History PARoxetine HCL 40 mg PO DAILY 01/09/23 06/28/24 History Pedi Multivit No.25/Folic Acid 300 mcg PO DAILY 01/09/23 06/28/24 History [Flintstones Multivit Chew Tab] Apixaban [Eliquis] 2.5 mg PO BID 06/28/24 06/28/24 History Diltiazem Cd [Cardizem CD] 180 mg PO HS 06/28/24 06/28/24 History Furosemide [Lasix] 40 mg PO DAILY 06/28/24 06/28/24 History Insulin Aspart (Niacinamide) 10 units SQ TID-W/MEALS 06/28/24 06/28/24 History [Fiasp 100 Unit/ml Flextouch Pen] Insulin Glargine,Hum.rec.anlog 45 units SQ W/BRKFST 06/28/24 06/28/24 History [Lantus Solostar Pen] Levothyroxine Sodium [Synthroid] 75 mcg PO AC-BRKFST 06/28/24 06/28/24 History Allergies Allergy/AdvReac Type Severity Reaction Status Date / Time adenosine Allergy Anaphylaxis Verified 06/28/24 07:39 Influenza Virus Vaccines Allergy Anaphylaxis Verified 06/28/24 07:39 egg AdvReac Diarrhea Verified 06/28/24 07:39 flu vaccine Allergy Anaphylaxis Uncoded 06/28/24 07:39 Physical Exam Vitals: Vital Signs Temp Pulse Resp BP Pulse Ox 06/29/24 09:35 98.5 F 80 18 143/60 95 06/29/24 04:50 87 21 144/68 95 06/28/24 23:35 98.5 F 85 20 152/62 95 06/28/24 20:20 99.3 F 76 19 145/54 93 L 06/28/24 16:09 98.9 F 74 18 137/72 94 L 06/28/24 11:46 98.4 F 66 18 100/48 96 Intake and Output 06/28/24 06/29/24 06/29/24 22:59 06:59 14:59 Intake Total 170 20 20 Output Total 300 Balance 170 -280 20 Intake: IV 20 20 20 Invasive Line 1 10 10 10 Invasive Line 2 10 10 10 Oral 150 Output: Urine 300 Other: Voiding Method Indwelling Catheter Indwelling Catheter Indwelling Catheter Patient is awake, comfortable Very hard of hearing Examination of the heart S1 and S2 Examination of the lungs bilateral breath sounds are heard Abdomen is soft obese Examination lower extremity shows no significant edema Results - Lab Results Most recent lab results Calcium 9.5 mg/dL (8.4-10.2) 06/29/24 06:18 Magnesium 2.0 mg/dL (1.6-2.3) 06/28/24 06:54 06/29/24 06:18 06/29/24 06:18 Assessment and Plan Assessment: 1. Acute kidney injury, ATN secondary to low blood pressure and volume depletion, nonoliguric. Check UA and check ultrasound of the kidneys 2. Status post fall and left intertrochanteric fracture, scheduled for surgery today. 3. Mild hyperkalemia associated with acute kidney injury 4. Paroxysmal A-fib status post Cardizem drip now maintained on Lopressor with controlled heart rate 5. Elevated liver enzymes most likely related to some degree of hypotension, not on statins Plan: Agree with IV fluids Check UA Check ultrasound of the kidneys Agree with holding Lasix Repeat labs in a.m. Avoid any nephrotoxic agents. Thank you for the consultation. We will continue to follow the patient with you during her hospitalization.
[2024-06-29] MEDS: LACTATED RINGERS 1,000 ML IV ONE (13:45)
--- NOTE | 2024-06-29 14:44 | P.OP ---
Date of Procedure: 06/29/24 Preoperative Diagnosis: 1. Left comminuted intertrochanteric proximal femur fracture with subtrochanteric shaft extension 2. BMI 42.5 3. Paroxysmal atrial fibrillation 3. COPD (on 3 L home oxygen) 4. Type 2 diabetes 5. Chronic lower extremity edema Postoperative Diagnosis: Same Procedure(s) Performed: Operative fixation of left intertrochanteric/subtrochanteric femur fracture with long intramedullary hip screw Anesthesia: GETA Surgeon: Herminio Barnhart Estimated Blood Loss (ml): 300 IV fluids (ml): 800 Urine output (ml): 300 Pathology: none sent Condition: stable Disposition: PACU Indications for Procedure: The patient is a very unhealthy 88-year-old female with multiple medical problems including morbid obesity and challenging body habitus who presented with a comminuted intertrochanteric/subtrochanteric proximal femur fracture. She was ultimately cleared for surgery. I met with the patient and her family to discuss surgery. We discussed the potential risks and complications of this surgical procedure including but certainly not limited to risks from anesthesia, superficial infection, deep infection, fracture nonunion, fracture malunion, hardware failure including broken hardware, varus collapse with lag screw cut out of the femoral head, progression of hip arthritis, limb length discrepancy, symptomatic hardware, need for further surgery including hardware removal and conversion to arthroplasty, DVT, PE, acute coronary event, pressure ulcers, urinary tract infection, failure to thrive, an inability to regain preinjury level of function, and possibly . The patient and their family understand these potential complications and also awknowledge that other less common complications are possible. They provided both their verbal and written consent to go forward with operative fixation of their hip fracture with an intramedullary hip screw. Operative Findings: The patient had a highly comminuted challenging fracture of the proximal femur with both intertrochanteric and subtrochanteric shaft extension. The patient's morbid obesity, challenging body habitus, lower extremity edema and fracture characteristics made all aspects of surgery challenging including patient positioning, reduction of fracture, interpretation of intraoperative fluoroscopy, and completion of the surgical procedure. Description of Procedure: The patient was identified in preoperative holding and the correct operative extremity was marked with my initials. I reviewed the consent form with the patient and their family and all of their questions were answered. The patient was then brought back to the operating room by anesthesia. Anesthesia, preoperative antibiotics, and tranexamic acid were given by the anesthesia team while on the rney. Both ankles were padded with webril and boots for the [place] table were applied. The patient was then carefully transferred onto the [place] table. A perineal post was immediately placed. The contralateral arm was secured on a well-padded arm elliott. The ipsilateral arm was draped across the chest and secured with a pillow, foam, and paper tape to allow access to the proximal femur. Nonsterile drapes were applied to the operative extremity. The height of the table was elevated and the contralateral extremity was dropped towards the floor to facilitate imaging. A timeout was performed identifying the correct patient, operative extremity, and procedure. Fluoroscopy was brought in to assess the fracture. A provisional reduction was performed using longitudinal traction, adduction, and internal rotation. The fracture was found to be highly comminuted with multiple free intercalary fragments. The more proximal neck was flexed and there was significant extension of the shaft distally on the lateral view. Even with a crutch it was difficult to bring the shaft colinear with the canal proximally. The patient's morbid obesity also made interpretation of imaging challenging. An AP and lateral view were obtained to assess the reduction. The operative extremity was then prepped and draped in the standard sterile fashion. A straight incision was made proximal to the tip of the greater trochanter and extended proximally for 3 cm. Skin and subcutaneous tissues were incised sharply. The underlying fascia was incised in line with the skin incision. An awl was placed just medial to the tip of the greater trochanter on the AP view and colinear with the canal on the lateral view. A 3.2 mm guide pin was then advanced into the proximal femur just up to the fracture site. The position of the guidepin was verified with fluoroscopy. An opening reamer and soft tissue cannula were placed over the guidepin and used to open the proximal femur to the level of the proximal fracture. The 3.2 mm guide pin and opening reamer were removed. An incision was made laterally over the more proximal shaft. Dissection was carried down carefully to the IT band which is incised longitudinally in line with the skin incision. A bone hook was used around the distal shaft of the femur. An fws faculty assistant elevated the distal shaft and provided a medial force while I advanced a reduction finger from the proximal femur distally into the shaft. A long ball-tipped guide wire was placed into the femur and passed distally under C-arm guidance. When the position of the wire was verified distally we measured the length to determine the appropriate length nail. We then reamed until chatter was encountered and the over-reamed by 1.5- mm. A long gamma nail was dispensed, hooked up to the targeting arm and I verified that the trochar through the targeting arm lined up with the slots on the nail. The nail was then impacted into the proximal femur and advanced under C-arm guidance until the appropriate depth had been reached. The previous incision over the lateral aspect of the femur was used for the lag screw. The trocar was then placed up to the lateral cortex of the femur and a guidepin was placed in the center of the femoral head on both the AP and lateral view. Once the position of the guidewire was verified to have an appropriate tip-apex distance, we reamed to appropriate depth and placed a lag screw over the guidewire and into the femoral head. The position of the lag screw was assessed with fluoroscopy. The guidewire was then removed from the femoral head. The set screw was placed proximally, brought fully down and then released a quarter turn to allow compression. A distal inter-locking screw was then placed through stab incisions using the "perfect-barrow" freehand technique. Final fluoroscopic images were taken showing excellent reduction of the fracture and appropriate position of the implants. All wounds were thoroughly irrigated and closed in layers. Sterile dressings were applied. The drapes were taken down, the patient was transferred off the [place] table, and was brought to recovery having tolerated the procedure well. PLAN: The patient can weight-bear as tolerated on their operative extremity. 2 doses of postoperative antibiotics. DVT prophylaxis - ok to resume anti- coagulation tomorrow. Leave dressings in place. Appreciate Internal Medical assistance with perioperative medical management. Discharge planning in process.
[2024-06-29] MEDS ORDERED: NALOXONE 0.4 MG/ML 1 ML VIAL IV PRN (14:45)
[2024-06-29] MEDS ORDERED: HYDROmorphone 0.5 MG/0.5 ML SYRINGE IVP PRN ×2 (14:45)
[2024-06-29] MEDS ORDERED: HYDROcodone/APAP 10-325MG 1 EACH TAB PO PRN (14:45)
[2024-06-29] MEDS ORDERED: MAGNESIUM HYDROXIDE 2,400 MG/30 ML CUP PO PRN (14:45)
[2024-06-29] MEDS ORDERED: ONDANSETRON 4 MG/2 ML VIAL IVP PRN (14:45)
[2024-06-29] MEDS ORDERED: HYDROcodone/APAP 5-325MG 1 EACH TAB PO PRN (14:45)
--- NOTE | 2024-06-29 14:48 | FL ---
Fluoroscopy History: LT hip gamma nail DAP 48.45 FT 5 MIN 17 SEC [facility], , 06/29/2024 2:46 PM
--- NOTE | 2024-06-29 14:49 | XR ---
EXAMINATION TYPE: XR Hip Limited LT DATE OF EXAM: 06/29/2024 2:40 PM COMPARISON: None. CLINICAL INDICATION: Female, 88 years old with history of LT hip gamma nail, pain DAP 48.45 FT 5 MIN 17 SEC. 4 images submitted. [facility], , 06/29/2024 2:47 PM
[2024-06-29 15:30] LABS: Glucose,Whole Blood 394 mg/dL (70-110)
[2024-06-29] MEDS: INSULIN LISPRO (HumaLOG) 100 UNIT/ML 10 mL VL SQ ONE (15:58)
[2024-06-29 16:45] LABS: Glucose,Whole Blood 419 mg/dL (70-110)
[2024-06-29 16:48] LABS: Glucose,Whole Blood 445 mg/dL (70-110)
[2024-06-29] MEDS: ceFAZolin 2 GM in DEXTROSE 5% IN WATER 50 ML IVPB SCH (16:54)
[2024-06-29] MEDS: SODIUM CHLORIDE 0.9% 1,000 ML IV ONE (16:55)
[2024-06-29 16:58] LABS: Basophils # (A) 0.03 10*3/uL (0.00-0.10); Basophils % (A) 0.3 %; HCT 30.6 % (37.2-46.3); HGB 9.6 g/dL (12.0-15.0); Lymphocytes % (A) 5.9 %; MCH 31.8 pg (27.0-32.0); MCHC 31.4 g/dL (32.0-37.0); MCV 101.3 fL (80.0-97.0); Monocytes # (A) 0.57 10*3/uL (0.20-1.00); Monocytes % (A) 5.6 %; Neutrophils # (A) 8.87 10*3/uL (1.80-7.70); Neutrophils % (A) 87.9 %; Platelet Count 226 10*3/uL (140-440); RBC 3.02 10*6/uL (4.10-5.20); RDW 13.7 % (11.5-14.5)
[2024-06-29 17:32] LABS: Appearance,Urine Cloudy (Clear); Bacteria,Urine Rare /hpf; Bilirubin,Urine Negative (Negative); Blood,Urine Moderate (Negative); Color,Urine Yellow; Glucose,Urine (UA) 2+ (Negative); Hyaline Casts,Urine 8 /lpf (0-2); Ketones,Urine Trace (Negative); Leukocyte Esterase,Urine Moderate (Negative); Mucus,Urine Rare /hpf; Nitrite,Urine Negative (Negative); Protein,Urine Trace (Negative); RBC,Urine 2 /hpf (0-5); Specific Gravity,Urine 1.018 (1.001-1.035); Squamous Epithelial Cell,Urine 1 /hpf (0-4); Urobilinogen,Urine <2.0 mg/dL (<2.0); WBC,Urine 24 /hpf (0-5)
[2024-06-29] MEDS: METOPROLOL TARTRATE 5 MG/5 ML VIAL IVP ONE (18:08)
[2024-06-29 20:19] LABS: Glucose,Whole Blood 246 mg/dL (70-110)
[2024-06-29] MEDS: DILTIAZEM 5 MG/ML 5 ML VIAL IVP STA (20:37)
[2024-06-29] MEDS: DILTIAZEM 125 MG in DEXTROSE 5% IN WATER 100 ML IV SCH (20:37)
[2024-06-29] MEDS: SENNOSIDES-DOCUSATE SODIUM 1 EACH TAB PO SCH (20:37)
[2024-06-30 06:07] LABS: Glucose,Whole Blood 293 mg/dL (70-110)
[2024-06-30 06:59] LABS: HCT 27.9 % (37.2-46.3); HGB 8.7 g/dL (12.0-15.0); MCH 31.6 pg (27.0-32.0); MCHC 31.2 g/dL (32.0-37.0); MCV 101.5 fL (80.0-97.0); Mean Platelet Volume 11.3 fL (9.5-12.2); Platelet Count 258 10*3/uL (140-440); RBC 2.75 10*6/uL (4.10-5.20); RDW 13.7 % (11.5-14.5); WBC 11.02 10*3/uL (4.50-10.00)
[2024-06-30 07:38] LABS: ALT 222 U/L (4-34); AST 191 U/L (14-36); African American GFR (CKD) 21 (>60 ml/min/1.73 sqM); Albumin 2.7 g/dL (3.5-5.0); Alkaline Phosphatase 173 U/L (38-126); Anion Gap 8 mmol/L; Blood Urea Nitrogen 65 mg/dL (7-17); Calcium 9.5 mg/dL (8.4-10.2); Carbon Dioxide 26 mmol/L (22-30); Chloride 105 mmol/L (98-107); Glucose 255 mg/dL (74-99); Magnesium 2.1 mg/dL (1.6-2.3); Non-African American GFR(CKD) 18 (>60 ml/min/1.73 sqM); Potassium 4.8 mmol/L (3.5-5.1); Sodium 139 mmol/L (137-145); Total Bilirubin 0.8 mg/dL (0.2-1.3); Total Protein 5.2 g/dL (6.3-8.2)
[2024-06-30] MEDS: METOPROLOL TARTRATE 12.5 MG TAB PO ONE (08:48)
--- NOTE | 2024-06-30 08:48 | P.PN ---
Subjective Patient was seen at bedside this morning. She is awake but does not respond to questions. She does not appear to be in any obvious distress. Objective - Vital Signs Vital signs: Vital Signs Temp 98.1 F 06/30/24 08:08 Pulse 144 H 06/30/24 08:08 Resp 20 06/30/24 08:08 BP 98/64 06/30/24 08:08 Pulse Ox 96 06/30/24 08:08 FiO2 Intake & Output 06/29/24 06/30/24 06/30/24 18:59 06:59 18:59 Intake Total 3620 11 19.417 Output Total 425 650 Balance 3195 -639 19.417 Weight 108.862 kg Intake: IV 1545 10 Invasive Line 1 10 Invasive Line 2 10 10 Intake, IV Titration 2075 1 19.417 Amount Dextrose 5%-0.45% NaCl 1, 1000 000 ml @ 0 mls/hr IV .[facility] -[facility] Rx#:[id number] Dextrose 5%-0.9% NaCl 1, 375 000 ml @ 75 mls/hr IV . [id number] [facility] Rx#:[id number] Diltiazem 125 mg In 1 19.417 Dextrose 5% in Water 100 ml @ 5 MG/HR 5 mls/hr IV .Q24H [facility] Rx#:[id number] Lactated Ringers 1,000 ml 200 @ 0 mls/hr IV .[facility] Rx#:[id number] Sodium Chloride 0.9% 1, 450 000 ml @ 50 mls/hr IV . Q20H [facility] Rx#:[id number] ceFAZolin 2 gm In 50 Dextrose 5% in Water 50 ml @ 100 mls/hr IVPB Q8HR [facility] Rx#:[id number] Output: Urine 125 650 Estimated Blood Loss 300 Other: Voiding Method Indwelling Catheter Indwelling Catheter Indwelling Catheter - Exam Patient is lying comfortably in bed. She opens her eyes to and is talking but does not respond to commands. A focused exam of the left lower extremity was conducted. The dressings over the lateral aspect of her hip, thigh, and knee are intact with no drainage or strikethrough. Her thigh is soft and compressible. Her foot is warm and well-perfused with brisk capillary refill. - Labs CBC & Chem 7: 06/30/24 06:12 06/30/24 06:12 Labs: Abnormal Lab Results - Last 24 Hours (Table) 06/29/24 06/29/24 06/29/24 Range/Units 15:27 16:40 16:44 WBC 10.10 H (4.50-10.00) 10*3/uL RBC 3.02 L (4.10-5.20) 10*6/uL Hgb 9.6 L (12.0-15.0) g/dL Hct 30.6 L (37.2-46.3) % MCV 101.3 H (80.0-97.0) fL MCHC 31.4 L (32.0-37.0) g/dL Neutrophils # 8.87 H (1.80-7.70) 10*3/uL Lymphocytes # 0.60 L (0.90-5.00) 10*3/uL Eosinophils # 0.00 L (0.04-0.35) 10*3/uL BUN (7-17) mg/dL Creatinine (0.52-1.04) mg/dL Glucose (74-99) mg/dL POC Glucose (mg/dL) 394 H 419 H (70-110) mg/dL AST (14-36) U/L ALT (4-34) U/L Alkaline Phosphatase (38-126) U/L Total Protein (6.3-8.2) g/dL Albumin (3.5-5.0) g/dL Urine Appearance (Clear) Urine Protein (Negative) Urine Glucose (UA) (Negative) Urine Ketones (Negative) Urine Blood (Negative) Ur Leukocyte Esterase (Negative) Urine WBC (0-5) /hpf Urine Bacteria (None) /hpf Hyaline Casts (0-2) /lpf Urine Mucus (None) /hpf 06/29/24 06/29/24 06/29/24 Range/Units 16:44 16:46 20:17 WBC (4.50-10.00) 10*3/uL RBC (4.10-5.20) 10*6/uL Hgb (12.0-15.0) g/dL Hct (37.2-46.3) % MCV (80.0-97.0) fL MCHC (32.0-37.0) g/dL Neutrophils # (1.80-7.70) 10*3/uL Lymphocytes # (0.90-5.00) 10*3/uL Eosinophils # (0.04-0.35) 10*3/uL BUN (7-17) mg/dL Creatinine (0.52-1.04) mg/dL Glucose (74-99) mg/dL POC Glucose (mg/dL) 445 H 246 H (70-110) mg/dL AST (14-36) U/L ALT (4-34) U/L Alkaline Phosphatase (38-126) U/L Total Protein (6.3-8.2) g/dL Albumin (3.5-5.0) g/dL Urine Appearance Cloudy H (Clear) Urine Protein Trace H (Negative) Urine Glucose (UA) 2+ H (Negative) Urine Ketones Trace H (Negative) Urine Blood Moderate H (Negative) Ur Leukocyte Esterase Moderate H (Negative) Urine WBC 24 H (0-5) /hpf Urine Bacteria Rare H (None) /hpf Hyaline Casts 8 H (0-2) /lpf Urine Mucus Rare H (None) /hpf 06/30/24 06/30/24 06/30/24 Range/Units 06:05 06:12 06:12 WBC 11.02 H (4.50-10.00) 10*3/uL RBC 2.75 L (4.10-5.20) 10*6/uL Hgb 8.7 L (12.0-15.0) g/dL Hct 27.9 L (37.2-46.3) % MCV 101.5 H (80.0-97.0) fL MCHC 31.2 L (32.0-37.0) g/dL Neutrophils # (1.80-7.70) 10*3/uL Lymphocytes # (0.90-5.00) 10*3/uL Eosinophils # (0.04-0.35) 10*3/uL BUN 65 H (7-17) mg/dL Creatinine 2.33 H (0.52-1.04) mg/dL Glucose 255 H (74-99) mg/dL POC Glucose (mg/dL) 293 H (70-110) mg/dL AST 191 H (14-36) U/L ALT 222 H (4-34) U/L Alkaline Phosphatase 173 H (38-126) U/L Total Protein 5.2 L (6.3-8.2) g/dL Albumin 2.7 L (3.5-5.0) g/dL Urine Appearance (Clear) Urine Protein (Negative) Urine Glucose (UA) (Negative) Urine Ketones (Negative) Urine Blood (Negative) Ur Leukocyte Esterase (Negative) Urine WBC (0-5) /hpf Urine Bacteria (None) /hpf Hyaline Casts (0-2) /lpf Urine Mucus (None) /hpf Assessment and Plan Assessment: Postoperative day #1 status post long gamma nail for highly comminuted intertrochanteric hip fracture with subtrochanteric extension BMI 42.5 Multiple medical problems Plan: 1. Nonweightbearing left lower extremity 2. Leave surgical dressings in place 3. 2 doses postoperative antibiotics 4. Okay to resume anticoagulation today 5. Appreciate internal medicine and other medical consultants assistance with perioperative medical management 6. Physical therapy, attempt mobilization out of bed into a chair 7. DISPO: The patient will likely need discharge to a subacute nursing facility or rehab. Due to her multiple medical issues, morbid obesity, and highly comminuted, complex fracture her prognosis is guarded.
--- NOTE | 2024-06-30 08:51 | US ---
EXAMINATION TYPE: US abd limited kidneys/bladder DATE OF EXAM: 06/30/2024 COMPARISON: NONE CLINICAL INDICATION: Female, 88 years old with history of EMMANUEL on CKD; Abnormal labs. GB removed. bl adder manuel. Hip surgery yesterday. TECHNIQUE: Grayscale and color Doppler imaging of the right upper quadrant including the kidneys and urinary bladder. FINDINGS: EXAM MEASUREMENTS: Liver Length: 15.2 cm CBD: 0.7 cm Right Kidney: 10.9 x 4.6 x 4.4 cm Left Kidney: 9.3 x 3.9 x 4.0 cm Pancreas: Head and tail not well seen, appears echogenic Liver: Heterogenous Gallbladder: Surgically absent CBD: wnl Right Kidney: Cortical thinning Left Kidney: limited visualization Bladder: not visualized, bladder manuel Bilateral Jets Seen not visualized, bladder manuel EMERGENCY DOCTOR NOTES: Suboptimal due to patient body habitus and bowel gas The visualized portions of pancreas unremarkable. Liver is heterogenous without surface nodularity or focal lesion identified. Gallbladder is surgically absent. The common bile duct is within normal bain its. No hydronephrosis, shadowing calculus or renal mass identified. Cortical thinning of the right k idney. The urinary bladder is not visualized due to decompression with portacatheter. IMPRESSION: Limited examination due to patient's body habitus and overlying bowel gas. 1. No ultrasound evidence for acute process. 2. Cortical thinning of the right kidney suggesting chronic medical renal disease. [facility], , 06/30/2024 8:48 AM
--- NOTE | 2024-06-30 09:44 | P.PN ---
Subjective Progress Note Date: 06/30/24 Requesting physician: Barbie Patel Reason for Consult (text): afib RVR History of present illness: Patient is a 88 year old female with past medical history of COPD, diabetes mellitus, hypothyroidism, atrial fibrillation presented to the ED for a ground- level fall and is found to have left intertrochanteric fracture. Patient seen today for cardiology consultation for atrial fibrillation with rapid ventricular rate. Last night patient's heart rate was 110-150s on telemetry, patient was cooperative and not in distress patient was found to be in A-fib with RVR and was given diltiazem 180 mg p.o. once. A couple hours later the patient's heart rate did not improve and was administered Lopressor 5 mg IV and was transferred to [facility] with telemetry. Upon reviewing of the rhythm strip, patient was found to have long conversion pauses. Patient is known to have paroxysmal atrial fibrillation and is on Eliquis 2.5 mg p.o. twice daily and Cardizem 180 mg p.o. at bedtime at home. Vitals T 99.1 F, ND 122 bpm, RR 18, BP 108/61, SPO2 95% on 3 L oxygen via nasal cannula EKG independently interpreted as atrial fibrillation with rapid ventricular response, rate 129 bpm, QTc 479 ms Chest x-ray shows small left effusion Head and cervical spine CT shows no acute intracranial hemorrhage, midline shift or mass effect Labs show WBC 11.91, hemoglobin 13.3, platelet count 278, INR 1, potassium 4.8, magnesium 2, creatinine 0.98, AST 79, ALT 64, glucose 331 06/29 Patient seen and examined. Patient remains in a sinus rhythm. EF 55 to 60%, no pulmonary hypertension, mild mitral and tricuspid regurgitation. Blood pressure 144/68, heart rate 87, pulse ox 95% on 3 L nasal cannula. Repeat blood work reveals hemoglobin of 10.7, BUN 58 and creatinine 2.47. Orthopedics is planning for surgery later today. Patient is NPO. 06/30 Patient seen and examined. Yesterday, patient underwent IM screw to the left hip femur fracture. Patient had episode of A-fib with RVR last evening and was given Lopressor 2.5 mg IV which brought her heart rate down to 90s briefly and then she jumped back up to 140s. She has subsequently been started on Cardizem drip and is currently at 5 mg/h increased to 10 mg just moments ago for heart ra te in the 136. She also received a dose of oral Lopressor 12.5 mg. Repeat blood work reveals hemoglobin of 8.7, BUN 65, creatinine 2.33. Physical examination: Vital signs reviewed GENERAL: This is a 88-year-old obese female in no acute respiratory distress. HEENT: Head is atraumatic, normocephalic. Pupils equal, round. Sclerae is anicteric. NECK: Supple. No JVD. LUNGS: Clear to auscultation. No wheezes or rhonchi. No intercostal retractions. HEART: Regular rate and rhythm. ABDOMEN: Soft No tenderness. EXTREMITIES: No pedal edema. No calf tenderness. NEUROLOGICAL: Patient is awake Assessment: Left intratrochanteric hip fracture scheduled for surgery 06/29 Paroxysmal atrial fibrillation with episode of RVR Underlying sick sinus syndrome Type 2 diabetes COPD Hyperlipidemia Hypothyroidism Acute kidney injury Plan: Patient has been cleared by orthopedics to resume Eliquis at 2.5 mg twice daily Continue Cardizem drip at 10 mg/h Increase metoprolol tartrate to 25 mg 3 times daily Continue telemetry monitoring Further recommendations to follow based upon clinical course Nurse practitioner note has been reviewed, I agree with documented findings and plan of care. Patient was seen and examined. Objective - Vital Signs Vital signs: Vital Signs Temp 98.2 F 06/29/24 19:25 Pulse 134 H 06/30/24 03:31 Resp 20 06/30/24 03:31 BP 102/70 06/30/24 03:31 Pulse Ox 96 06/30/24 03:31 FiO2 Intake & Output 06/29/24 06/30/24 06/30/24 18:59 06:59 18:59 Intake Total 3620 11 19.417 Output Total 425 650 Balance 3195 -639 19.417 Weight 108.862 kg Intake: IV 1545 10 Invasive Line 1 10 Invasive Line 2 10 10 Intake, IV Titration 2075 1 19.417 Amount Dextrose 5%-0.45% NaCl 1, 1000 000 ml @ 0 mls/hr IV .[facility]K -[facility] Rx#:[id number] Dextrose 5%-0.9% NaCl 1, 375 000 ml @ 75 mls/hr IV . [id number] [facility] Rx#:[id number] Diltiazem 125 mg In 1 19.417 Dextrose 5% in Water 100 ml @ 5 MG/HR 5 mls/hr IV .Q24H [facility] Rx#:[id number] Lactated Ringers 1,000 ml 200 @ 0 mls/hr IV .[facility]K-[facility] Rx#:[id number] Sodium Chloride 0.9% 1, 450 000 ml @ 50 mls/hr IV . Q20H [facility] Rx#:[id number] ceFAZolin 2 gm In 50 Dextrose 5% in Water 50 ml @ 100 mls/hr IVPB Q8HR [facility] Rx#:[id number] Output: Urine 125 650 Estimated Blood Loss 300 Other: Voiding Method Indwelling Catheter Indwelling Catheter - Labs CBC & Chem 7: 06/30/24 06:12 06/30/24 06:12 Labs: Abnormal Lab Results - Last 24 Hours (Table) 06/29/24 06/29/24 06/29/24 Range/Units 15:27 16:40 16:44 WBC 10.10 H (4.50-10.00) 10*3/uL RBC 3.02 L (4.10-5.20) 10*6/uL Hgb 9.6 L (12.0-15.0) g/dL Hct 30.6 L (37.2-46.3) % MCV 101.3 H (80.0-97.0) fL MCHC 31.4 L (32.0-37.0) g/dL Neutrophils # 8.87 H (1.80-7.70) 10*3/uL Lymphocytes # 0.60 L (0.90-5.00) 10*3/uL Eosinophils # 0.00 L (0.04-0.35) 10*3/uL BUN (7-17) mg/dL Creatinine (0.52-1.04) mg/dL Glucose (74-99) mg/dL POC Glucose (mg/dL) 394 H 419 H (70-110) mg/dL AST (14-36) U/L ALT (4-34) U/L Alkaline Phosphatase (38-126) U/L Total Protein (6.3-8.2) g/dL Albumin (3.5-5.0) g/dL Urine Appearance (Clear) Urine Protein (Negative) Urine Glucose (UA) (Negative) Urine Ketones (Negative) Urine Blood (Negative) Ur Leukocyte Esterase (Negative) Urine WBC (0-5) /hpf Urine Bacteria (None) /hpf Hyaline Casts (0-2) /lpf Urine Mucus (None) /hpf 06/29/24 06/29/24 06/29/24 Range/Units 16:44 16:46 20:17 WBC (4.50-10.00) 10*3/uL RBC (4.10-5.20) 10*6/uL Hgb (12.0-15.0) g/dL Hct (37.2-46.3) % MCV (80.0-97.0) fL MCHC (32.0-37.0) g/dL Neutrophils # (1.80-7.70) 10*3/uL Lymphocytes # (0.90-5.00) 10*3/uL Eosinophils # (0.04-0.35) 10*3/uL BUN (7-17) mg/dL Creatinine (0.52-1.04) mg/dL Glucose (74-99) mg/dL POC Glucose (mg/dL) 445 H 246 H (70-110) mg/dL AST (14-36) U/L ALT (4-34) U/L Alkaline Phosphatase (38-126) U/L Total Protein (6.3-8.2) g/dL Albumin (3.5-5.0) g/dL Urine Appearance Cloudy H (Clear) Urine Protein Trace H (Negative) Urine Glucose (UA) 2+ H (Negative) Urine Ketones Trace H (Negative) Urine Blood Moderate H (Negative) Ur Leukocyte Esterase Moderate H (Negative) Urine WBC 24 H (0-5) /hpf Urine Bacteria Rare H (None) /hpf Hyaline Casts 8 H (0-2) /lpf Urine Mucus Rare H (None) /hpf 06/30/24 06/30/24 06/30/24 Range/Units 06:05 06:12 06:12 WBC 11.02 H (4.50-10.00) 10*3/uL RBC 2.75 L (4.10-5.20) 10*6/uL Hgb 8.7 L (12.0-15.0) g/dL Hct 27.9 L (37.2-46.3) % MCV 101.5 H (80.0-97.0) fL MCHC 31.2 L (32.0-37.0) g/dL Neutrophils # (1.80-7.70) 10*3/uL Lymphocytes # (0.90-5.00) 10*3/uL Eosinophils # (0.04-0.35) 10*3/uL BUN 65 H (7-17) mg/dL Creatinine 2.33 H (0.52-1.04) mg/dL Glucose 255 H (74-99) mg/dL POC Glucose (mg/dL) 293 H (70-110) mg/dL AST 191 H (14-36) U/L ALT 222 H (4-34) U/L Alkaline Phosphatase 173 H (38-126) U/L Total Protein 5.2 L (6.3-8.2) g/dL Albumin 2.7 L (3.5-5.0) g/dL Urine Appearance (Clear) Urine Protein (Negative) Urine Glucose (UA) (Negative) Urine Ketones (Negative) Urine Blood (Negative) Ur Leukocyte Esterase (Negative) Urine WBC (0-5) /hpf Urine Bacteria (None) /hpf Hyaline Casts (0-2) /lpf Urine Mucus (None) /hpf
[2024-06-30] MEDS: HYDROmorphone 0.5 MG/0.5 ML SYRINGE IVP PRN (11:12)
--- NOTE | 2024-06-30 11:13 | P.PN ---
Subjective Progress Note Date: 06/30/24 88-year-old female with COPD (on 3 L home oxygen), diabetes, GERD, A-fib (on Eliquis), anxiety/depression, chronic leg swelling, hypothyroidism (not on medications) here for ground-level fall. Patient was reported to have tried to reach her oxygen tank from her wheelchair and she fell forward to the ground. Her daughter mentioned that she did not hit her head or lose consciousness at the time of the fall. T 98.2 F, HR 82, RR 18, BP 109/85, O2 sat 96% on 3 L NC. WBC 11.9, hemoglobin 13.3, sodium 138, potassium 4.5, bicarb 31, BUN 32, creatinine 1.11, glucose 265, AST 45, ALT 47, alk phos 155, calcium 10. CT head shows no acute intracranial hemorrhage, midline shift or mass effect. Chest x- ray showed small left pleural effusion and cardiomegaly. Pelvic and femur left x-ray showed comminuted left intertrochanteric hip fracture. Patient is admitted to Orthopedic surgery with [facility] on consultation. Overnight, patient was found to be in A-Fib RVR on telemetry. She was started on Cardizem drip and Cardiology was consulted. A-Fib RVR resolved prior to surgery. Orthopedic Sx consulted, underwent operative fixation of left intertrochanteric/subtrochanteric femur fracture with long intramedullary hip screw on 06/29. 06/30 Patient was seen and examined. Post-operatively went back into A-Fib with RVR. HR in the 140s this morning on telemetry. Family at bedside reporting confusion. On Cardizem drip at 10 mg/hr. CBC shows WBC 11.02, RBC 2.75, Hg 8.7, Hct 27.9, MCV 101.5. CMP shows BUN 65, Cr 2.33, glu 255, AST 191, ALT 222, alk phos 173, alb 2.7. UA trace protein, moderate LE with 24 WBCs. Renal US shows no obstruction and chronic medical disease. General: no distress, appears at stated age Derm: warm, dry Head: atraumatic, normocephalic, symmetric Mouth: no lip lesion, mucus membranes moist Cardiovascular: S1 S2 irreg irreg. No murmur. Lungs: Decreased BS bilaterally, no accessory muscle use Ext: no gross muscle atrophy, no edema, no contractures Neuro: No obvious focal neurologic deficits. Psych: Confused Based on my assessment of this patient, this patient meets a high complexity level of care. A-fib with RVR: Cardiology increased Metoprolol to 25 mg PO TID. Cardizem drip 10 mg/hr. Echo as above. Telemetry monitoring. K > 4 and Mg > 2. AC when OK with Ortho. Cardiology on board. 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 Lasix on hold. Continue NS at 50 cc/hr. Renal and bladder US neg for obstruction. Bladder scan PRN. Avoid nephrotoxins. Nephrology on board. Acute metabolic encephalopathy: Likely related to delirium. Wean Dilaudid. Window side bed. Frequent re-direction. Fall precautions. Acute blood loss anemia which is a likely result of surgery. Leukocytosis which is likely reactive with no signs of obvious infection. Transaminitis: Likely prerenal. Stop Lipitor. Obtain liver US. Type II DM with hyperkalemia: A1c 8.1. ISS with Accuchecks ACHS along with hypoglycemic precautions. Chronic hypoxic respiratory failure secondary to COPD on home oxygen 3 L: DuoNeb QID PRN. Depression and anxiety: Paroxetine 40 mg PO QD Hypothyroidism: Synthroid 75 mcg PO QD. Hyperlipidemia: Lipitor on hold as above. GERD: Protonix 40 mg PO QD. Extensive seborrheic keratosis: Possible GI malignancy. Follow-up with PCP if desired to pursue further investigation. Left intertrochanteric hip fracture managed by Orthopedic Sx. Resolved: HyperK CODE STATUS: NO CODE DVT Prophylaxis: SCD GI Prophylaxis: Protonix PO Designated medical POA if patient is not able to make medical decisions for themselves: I have reviewed the following cancer program consultant notes: Ortho, Cardiology. I have reviewed the results of the following tests: CBC, CMP. Renal US. UA. I have ordered the following tests: Liver US pending. CBC and CMP in the AM. I have discussed the care of this patient with the following independent historian: Family. I have independently interpreted the following test below: I have discussed the management of this patient with the following physician: Objective - Vital Signs Vital signs: Vital Signs Temp 98.1 F 06/30/24 08:08 Pulse 144 H 06/30/24 08:08 Resp 20 06/30/24 08:08 BP 98/64 06/30/24 08:08 Pulse Ox 96 06/30/24 08:08 FiO2 Intake & Output 06/29/24 06/30/24 06/30/24 18:59 06:59 18:59 Intake Total 3620 11 19.417 Output Total 425 650 Balance 3195 -639 19.417 Weight 108.862 kg Intake: IV 1545 10 Invasive Line 1 10 Invasive Line 2 10 10 Intake, IV Titration 2075 1 19.417 Amount Dextrose 5%-0.45% NaCl 1, 1000 000 ml @ 0 mls/hr IV .STK -[facility] Rx#:[id number] Dextrose 5%-0.9% NaCl 1, 375 000 ml @ 75 mls/hr IV . [id number] [facility] Rx#:[id number] Diltiazem 125 mg In 1 19.417 Dextrose 5% in Water 100 ml @ 5 MG/HR 5 mls/hr IV .Q24H [facility] Rx#:[id number] Lactated Ringers 1,000 ml 200 @ 0 mls/hr IV .STK-MED ONE Rx#:[id number] Sodium Chloride 0.9% 1, 450 000 ml @ 50 mls/hr IV . Q20H [facility] Rx#:[id number] ceFAZolin 2 gm In 50 Dextrose 5% in Water 50 ml @ 100 mls/hr IVPB Q8HR [facility] Rx#:[id number] Output: Urine 125 650 Estimated Blood Loss 300 Other: Voiding Method Indwelling Catheter Indwelling Catheter - Labs CBC & Chem 7: 06/30/24 06:12 06/30/24 06:12 Labs: Abnormal Lab Results - Last 24 Hours (Table) 06/29/24 06/29/24 06/29/24 Range/Units 15:27 16:40 16:44 WBC 10.10 H (4.50-10.00) 10*3/uL RBC 3.02 L (4.10-5.20) 10*6/uL Hgb 9.6 L (12.0-15.0) g/dL Hct 30.6 L (37.2-46.3) % MCV 101.3 H (80.0-97.0) fL MCHC 31.4 L (32.0-37.0) g/dL Neutrophils # 8.87 H (1.80-7.70) 10*3/uL Lymphocytes # 0.60 L (0.90-5.00) 10*3/uL Eosinophils # 0.00 L (0.04-0.35) 10*3/uL BUN (7-17) mg/dL Creatinine (0.52-1.04) mg/dL Glucose (74-99) mg/dL POC Glucose (mg/dL) 394 H 419 H (70-110) mg/dL AST (14-36) U/L ALT (4-34) U/L Alkaline Phosphatase (38-126) U/L Total Protein (6.3-8.2) g/dL Albumin (3.5-5.0) g/dL Urine Appearance (Clear) Urine Protein (Negative) Urine Glucose (UA) (Negative) Urine Ketones (Negative) Urine Blood (Negative) Ur Leukocyte Esterase (Negative) Urine WBC (0-5) /hpf Urine Bacteria (None) /hpf Hyaline Casts (0-2) /lpf Urine Mucus (None) /hpf 06/29/24 06/29/24 06/29/24 Range/Units 16:44 16:46 20:17 WBC (4.50-10.00) 10*3/uL RBC (4.10-5.20) 10*6/uL Hgb (12.0-15.0) g/dL Hct (37.2-46.3) % MCV (80.0-97.0) fL MCHC (32.0-37.0) g/dL Neutrophils # (1.80-7.70) 10*3/uL Lymphocytes # (0.90-5.00) 10*3/uL Eosinophils # (0.04-0.35) 10*3/uL BUN (7-17) mg/dL Creatinine (0.52-1.04) mg/dL Glucose (74-99) mg/dL POC Glucose (mg/dL) 445 H 246 H (70-110) mg/dL AST (14-36) U/L ALT (4-34) U/L Alkaline Phosphatase (38-126) U/L Total Protein (6.3-8.2) g/dL Albumin (3.5-5.0) g/dL Urine Appearance Cloudy H (Clear) Urine Protein Trace H (Negative) Urine Glucose (UA) 2+ H (Negative) Urine Ketones Trace H (Negative) Urine Blood Moderate H (Negative) Ur Leukocyte Esterase Moderate H (Negative) Urine WBC 24 H (0-5) /hpf Urine Bacteria Rare H (None) /hpf Hyaline Casts 8 H (0-2) /lpf Urine Mucus Rare H (None) /hpf 06/30/24 06/30/24 06/30/24 Range/Units 06:05 06:12 06:12 WBC 11.02 H (4.50-10.00) 10*3/uL RBC 2.75 L (4.10-5.20) 10*6/uL Hgb 8.7 L (12.0-15.0) g/dL Hct 27.9 L (37.2-46.3) % MCV 101.5 H (80.0-97.0) fL MCHC 31.2 L (32.0-37.0) g/dL Neutrophils # (1.80-7.70) 10*3/uL Lymphocytes # (0.90-5.00) 10*3/uL Eosinophils # (0.04-0.35) 10*3/uL BUN 65 H (7-17) mg/dL Creatinine 2.33 H (0.52-1.04) mg/dL Glucose 255 H (74-99) mg/dL POC Glucose (mg/dL) 293 H (70-110) mg/dL AST 191 H (14-36) U/L ALT 222 H (4-34) U/L Alkaline Phosphatase 173 H (38-126) U/L Total Protein 5.2 L (6.3-8.2) g/dL Albumin 2.7 L (3.5-5.0) g/dL Urine Appearance (Clear) Urine Protein (Negative) Urine Glucose (UA) (Negative) Urine Ketones (Negative) Urine Blood (Negative) Ur Leukocyte Esterase (Negative) Urine WBC (0-5) /hpf Urine Bacteria (None) /hpf Hyaline Casts (0-2) /lpf Urine Mucus (None) /hpf
--- NOTE | 2024-06-30 11:18 | P.PN ---
Subjective Patient is seen for follow-up for acute kidney injury. Status post fixation of left intertrochanteric/subtrochanteric femur fracture on 06/29/2024 Patient is arousable. She is quite hard of hearing Trying to increase oral intake Periods of drowsiness on and off. Objective - Vital Signs Vital signs: Vital Signs Temp 98.1 F 06/30/24 08:08 Pulse 144 H 06/30/24 08:08 Resp 20 06/30/24 08:08 BP 98/64 06/30/24 08:08 Pulse Ox 96 06/30/24 08:08 FiO2 Intake & Output 06/29/24 06/30/24 06/30/24 18:59 06:59 18:59 Intake Total 3620 11 19.417 Output Total 425 650 Balance 3195 -639 19.417 Weight 108.862 kg Intake: IV 1545 10 Invasive Line 1 10 Invasive Line 2 10 10 Intake, IV Titration 2075 1 19.417 Amount Dextrose 5%-0.45% NaCl 1, 1000 000 ml @ 0 mls/hr IV [facility] Rx#:[id number] Dextrose 5%-0.9% NaCl 1, 375 000 ml @ 75 mls/hr IV . [id number] [facility] Rx#:[id number] Diltiazem 125 mg In 1 19.417 Dextrose 5% in Water 100 ml @ 5 MG/HR 5 mls/hr IV .Q24H [facility] Rx#:[id number] Lactated Ringers 1,000 ml 200 @ 0 mls/hr IV [facility] Rx#:[id number] Sodium Chloride 0.9% 1, 450 000 ml @ 50 mls/hr IV . Q20H [facility] Rx#:[id number] ceFAZolin 2 gm In 50 Dextrose 5% in Water 50 ml @ 100 mls/hr IVPB Q8HR [facility] Rx#:[id number] Output: Urine 125 650 Estimated Blood Loss 300 Other: Voiding Method Indwelling Catheter Indwelling Catheter Indwelling Catheter - Exam Patient is awake, comfortable Very hard of hearing Examination of the heart S1 and S2 Examination of the lungs bilateral breath sounds are heard Abdomen is soft obese Examination lower extremity shows no significant edema - Labs CBC & Chem 7: 06/30/24 06:12 06/30/24 06:12 Labs: Abnormal Lab Results - Last 24 Hours (Table) 04/26/25 04/26/25 04/26/25 Range/Units 15:27 16:40 16:44 WBC 10.10 H (4.50-10.00) 10*3/uL RBC 3.02 L (4.10-5.20) 10*6/uL Hgb 9.6 L (12.0-15.0) g/dL Hct 30.6 L (37.2-46.3) % MCV 101.3 H (80.0-97.0) fL MCHC 31.4 L (32.0-37.0) g/dL Neutrophils # 8.87 H (1.80-7.70) 10*3/uL Lymphocytes # 0.60 L (0.90-5.00) 10*3/uL Eosinophils # 0.00 L (0.04-0.35) 10*3/uL BUN (7-17) mg/dL Creatinine (0.52-1.04) mg/dL Glucose (74-99) mg/dL POC Glucose (mg/dL) 394 H 419 H (70-110) mg/dL AST (14-36) U/L ALT (4-34) U/L Alkaline Phosphatase (38-126) U/L Total Protein (6.3-8.2) g/dL Albumin (3.5-5.0) g/dL Urine Appearance (Clear) Urine Protein (Negative) Urine Glucose (UA) (Negative) Urine Ketones (Negative) Urine Blood (Negative) Ur Leukocyte Esterase (Negative) Urine WBC (0-5) /hpf Urine Bacteria (None) /hpf Hyaline Casts (0-2) /lpf Urine Mucus (None) /hpf 06/29/24 06/29/24 06/29/24 Range/Units 16:44 16:46 20:17 WBC (4.50-10.00) 10*3/uL RBC (4.10-5.20) 10*6/uL Hgb (12.0-15.0) g/dL Hct (37.2-46.3) % MCV (80.0-97.0) fL MCHC (32.0-37.0) g/dL Neutrophils # (1.80-7.70) 10*3/uL Lymphocytes # (0.90-5.00) 10*3/uL Eosinophils # (0.04-0.35) 10*3/uL BUN (7-17) mg/dL Creatinine (0.52-1.04) mg/dL Glucose (74-99) mg/dL POC Glucose (mg/dL) 445 H 246 H (70-110) mg/dL AST (14-36) U/L ALT (4-34) U/L Alkaline Phosphatase (38-126) U/L Total Protein (6.3-8.2) g/dL Albumin (3.5-5.0) g/dL Urine Appearance Cloudy H (Clear) Urine Protein Trace H (Negative) Urine Glucose (UA) 2+ H (Negative) Urine Ketones Trace H (Negative) Urine Blood Moderate H (Negative) Ur Leukocyte Esterase Moderate H (Negative) Urine WBC 24 H (0-5) /hpf Urine Bacteria Rare H (None) /hpf Hyaline Casts 8 H (0-2) /lpf Urine Mucus Rare H (None) /hpf 06/30/24 06/30/24 06/30/24 Range/Units 06:05 06:12 06:12 WBC 11.02 H (4.50-10.00) 10*3/uL RBC 2.75 L (4.10-5.20) 10*6/uL Hgb 8.7 L (12.0-15.0) g/dL Hct 27.9 L (37.2-46.3) % MCV 101.5 H (80.0-97.0) fL MCHC 31.2 L (32.0-37.0) g/dL Neutrophils # (1.80-7.70) 10*3/uL Lymphocytes # (0.90-5.00) 10*3/uL Eosinophils # (0.04-0.35) 10*3/uL BUN 65 H (7-17) mg/dL Creatinine 2.33 H (0.52-1.04) mg/dL Glucose 255 H (74-99) mg/dL POC Glucose (mg/dL) 293 H (70-110) mg/dL AST 191 H (14-36) U/L ALT 222 H (4-34) U/L Alkaline Phosphatase 173 H (38-126) U/L Total Protein 5.2 L (6.3-8.2) g/dL Albumin 2.7 L (3.5-5.0) g/dL Urine Appearance (Clear) Urine Protein (Negative) Urine Glucose (UA) (Negative) Urine Ketones (Negative) Urine Blood (Negative) Ur Leukocyte Esterase (Negative) Urine WBC (0-5) /hpf Urine Bacteria (None) /hpf Hyaline Casts (0-2) /lpf Urine Mucus (None) /hpf Assessment and Plan Assessment: 1. Acute kidney injury, ATN secondary to low blood pressure and volume deple tion, nonoliguric. UA shows trace protein moderate blood ultrasound of the kidneys is unremarkable with no evidence of obstruction. 2. Status post fall and left intertrochanteric fracture, status post surgery on 06/29/2024 3. Mild hyperkalemia associated with acute kidney injury 4. Paroxysmal A-fib status post Cardizem drip now maintained on Lopressor with controlled heart rate 5. Elevated liver enzymes most likely related to some degree of hypotension, not on statins Plan: Continue with IV fluids Continue off of diuretics Repeat labs in a.m. Avoid any nephrotoxic agents.
[2024-06-30 11:25] LABS: Glucose,Whole Blood 282 mg/dL (70-110)
[2024-06-30] MEDS: APIXABAN 2.5 MG TABLET PO SCH (12:03)
[2024-06-30 16:09] LABS: Glucose,Whole Blood 381 mg/dL (70-110)
[2024-06-30] MEDS: METOPROLOL TARTRATE 25 MG TAB PO SCH (16:21)
[2024-06-30 20:05] LABS: Glucose,Whole Blood 182 mg/dL (70-110)
[2024-07-01 06:45] LABS: Glucose,Whole Blood 299 mg/dL (70-110)
--- NOTE | 2024-07-01 09:17 | P.PN ---
Subjective Progress Note Date: 07/01/24 Patient was seen at bedside this morning. She is awake but does not respond to questions. She does not appear to be in any obvious distress. Objective - Vital Signs Vital signs: Vital Signs Temp 98.5 F 06/30/24 20:35 Pulse 81 07/01/24 07:30 Resp 18 07/01/24 07:30 BP 141/60 07/01/24 04:25 Pulse Ox 95 07/01/24 04:25 FiO2 Intake & Output 06/30/24 07/01/24 07/01/24 18:59 06:59 18:59 Intake Total 769.917 102.417 10 Output Total 200 300 Balance 569.917 -197.583 10 Intake: IV 10 10 Invasive Line 3 10 10 Intake, IV Titration 769.917 92.417 Amount Diltiazem 125 mg In 119.917 92.417 Dextrose 5% in Water 100 ml @ 5 MG/HR 5 mls/hr IV .Q24H [facility] Rx#:[id number] Sodium Chloride 0.9% 1, 600 000 ml @ 50 mls/hr IV . Q20H [facility] Rx#:[id number] ceFAZolin 2 gm In 50 Dextrose 5% in Water 50 ml @ 100 mls/hr IVPB Q8HR [facility] Rx#:[id number] Oral 0 Output: Urine 200 300 Other: Voiding Method Indwelling Catheter Indwelling Catheter Indwelling Catheter - Exam Patient is lying in bed. Patient breathing with equal chest expansion. A focused exam of the left lower extremity was conducted. The dressings over the lateral aspect of her hip, thigh, and knee are intact with no drainage or strikethrough. Her thigh is soft and compressible. Her foot is warm and well-perfused with 2+ dorsalis pedis pulse, capillary refill under 2 seconds. - Labs CBC & Chem 7: 06/30/24 06:12 06/30/24 06:12 Labs: Abnormal Lab Results - Last 24 Hours (Table) 06/30/24 06/30/24 06/30/24 Range/Units 11:21 16:07 20:02 POC Glucose (mg/dL) 282 H 381 H 182 H (70-110) mg/dL 07/01/24 Range/Units 06:41 POC Glucose (mg/dL) 299 H (70-110) mg/dL Assessment and Plan Assessment: Postoperative day #2 status post long gamma nail for highly comminuted intertrochanteric hip fracture with subtrochanteric extension Ground-level fall BMI 42.5 Paroxysmal atrial fibrillation. COPD. Type 2 diabetes. Multiple medical problems. Plan: 1. Nonweightbearing left lower extremity 2. Leave surgical dressings in place 3. 2 doses postoperative antibiotics 4. Okay to resume anticoagulation 5. Appreciate internal medicine and other medical consultants assistance with perioperative medical management 6. Physical therapy, attempt mobilization out of bed into a chair 7. DISPO: The patient will need discharge to a subacute nursing facility or rehab at time of discharge.
--- NOTE | 2024-07-01 10:57 | P.PN ---
Subjective Patient is seen for follow-up for acute kidney injury. Status post fixation of left intertrochanteric/subtrochanteric femur fracture on 06/29/2024 Patient is awake today. Following commands and trying to increase oral intake. Labs are pending from today. Objective - Vital Signs Vital signs: Vital Signs Temp 98.4 F 07/01/24 08:00 Pulse 74 07/01/24 08:00 Resp 16 07/01/24 08:00 BP 139/60 07/01/24 08:00 Pulse Ox 98 07/01/24 08:00 FiO2 Intake & Output 06/30/24 07/01/24 07/01/24 18:59 06:59 18:59 Intake Total 769.917 102.417 10 Output Total 200 300 600 Balance 569.917 -197.583 -590 Intake: IV 10 10 Invasive Line 3 10 10 Intake, IV Titration 769.917 92.417 Amount Diltiazem 125 mg In 119.917 92.417 Dextrose 5% in Water 100 ml @ 5 MG/HR 5 mls/hr IV .Q24H [facility] Rx#:[id number] Sodium Chloride 0.9% 1, 600 000 ml @ 50 mls/hr IV . Q20H [facility] Rx#:[id number] ceFAZolin 2 gm In 50 Dextrose 5% in Water 50 ml @ 100 mls/hr IVPB Q8HR [facility] Rx#:[id number] Oral 0 Output: Urine 200 300 600 Other: Voiding Method Indwelling Catheter Indwelling Catheter Indwelling Catheter - Exam Patient is awake, comfortable Answering simple questions Examination of the heart S1 and S2 Examination of the lungs bilateral breath sounds are heard Abdomen is soft obese Examination lower extremity shows no significant edema - Labs CBC & Chem 7: 06/30/24 06:12 06/30/24 06:12 Labs: Abnormal Lab Results - Last 24 Hours (Table) 06/30/24 06/30/24 06/30/24 Range/Units 11:21 16:07 20:02 POC Glucose (mg/dL) 282 H 381 H 182 H (70-110) mg/dL 07/01/24 Range/Units 06:41 POC Glucose (mg/dL) 299 H (70-110) mg/dL Assessment and Plan Assessment: 1. Acute kidney injury, ATN secondary to low blood pressure and volume depletion, nonoliguric. UA shows trace protein moderate blood ultrasound of the kidneys is unremarkable with no evidence of obstruction. 2. Status post fall and left intertrochanteric fracture, status post surgery on 06/29/2024 3. Mild hyperkalemia associated with acute kidney injury 4. Paroxysmal A-fib status post Cardizem drip now maintained on Lopressor with controlled heart rate 5. Elevated liver enzymes most likely related to some degree of hypotension, not on statins. Improved Plan: IV fluids have been discontinued Encouraged to increase oral intake. Check labs today Continue off of diuretics Repeat labs in a.m. Avoid any nephrotoxic agents.
[2024-07-01 11:16] LABS: Glucose,Whole Blood 447 mg/dL (70-110)
--- NOTE | 2024-07-01 11:21 | P.PN ---
Subjective HISTORY OF PRESENT ILLNESS: Patient is a 88 year old female with past medical history of COPD, diabetes mellitus, hypothyroidism, atrial fibrillation presented to the ED for a ground- level fall and is found to have left intertrochanteric fracture. Patient seen today for cardiology consultation for atrial fibrillation with rapid ventricular rate. Last night patient's heart rate was 110-150s on telemetry, patient was cooperative and not in distress patient was found to be in A-fib with RVR and was given diltiazem 180 mg p.o. once. A couple hours later the patient's heart rate did not improve and was administered Lopressor 5 mg IV and was transferred to [facility] with telemetry. Upon reviewing of the rhythm strip, patient was found to have long conversion pauses. Patient is known to have paroxysmal atrial fibrillation and is on Eliquis 2.5 mg p.o. twice daily and Cardizem 180 mg p.o. at bedtime at home. Vitals T 99.1 F, MS 122 bpm, RR 18, BP 108/61, SPO2 95% on 3 L oxygen via nasal cannula EKG independently interpreted as atrial fibrillation with rapid ventricular response, rate 129 bpm, QTc 479 ms Chest x-ray shows small left effusion Head and cervical spine CT shows no acute intracranial hemorrhage, midline shift or mass effect Labs show WBC 11.91, hemoglobin 13.3, platelet count 278, INR 1, potassium 4.8, magnesium 2, creatinine 0.98, AST 79, ALT 64, glucose 331 06/29 Patient seen and examined. Patient remains in a sinus rhythm. EF 55 to 60%, no pulmonary hypertension, mild mitral and tricuspid regurgitation. Blood pressure 144/68, heart rate 87, pulse ox 95% on 3 L nasal cannula. Repeat blood work reveals hemoglobin of 10.7, BUN 58 and creatinine 2.47. Orthopedics is planning for surgery later today. Patient is NPO. 06/30 Patient seen and examined. Yesterday, patient underwent IM screw to the left hip femur fracture. Patient had episode of A-fib with RVR last evening and was given Lopressor 2.5 mg IV which brought her heart rate down to 90s briefly and then she jumped back up to 140s. She has subsequently been started on Cardizem drip and is currently at 5 mg/h increased to 10 mg just moments ago for heart rate in the 136. She also received a dose of oral Lopressor 12.5 mg. Repeat blood work reveals hemoglobin of 8.7, BUN 65, creatinine 2.33. 07/01/2024 Patient examined this morning at the bedside. Patient currently denies chest pain or pressure. She denies shortness of breath. Patient is currently on a Cardizem drip at 5 mg an hour. Telemetry reveals sinus mechanism with a heart rate in the 70s. PHYSICAL EXAM: VITAL SIGNS: Reviewed. GENERAL: Well-developed in no acute distress. NECK: Supple. No JVD or thyromegaly LUNGS: Respirations even and unlabored. Lungs essentially clear to auscultation bilaterally. HEART: Regular rate and rhythm. S1 and S2 heard. EXTREMITIES: Normal range of motion. No clubbing or cyanosis. Peripheral pulses intact. No lower extremity edema ASSESSMENT: Left intratrochanteric hip fracture, status post surgical intervention Paroxysmal atrial fibrillation with RVR, currently sinus mechanism Underlying sick sinus syndrome Type 2 diabetes COPD Hyperlipidemia Hypothyroidism Acute kidney injury PLAN: Discontinue IV Cardizem Continue metoprolol tartrate 25 mg 3 times daily Continue anticoagulation with Eliquis Continue telemetry monitoring Patient is currently stable from a cardiac perspective Further recommendations pending patient course Nurse practitioner note has been reviewed by physician. Signing provider agrees with the documented findings, assessment, and plan of care documented by [employer] as a scribe. Objective - Vital Signs Vital signs: Vital Signs Temp 98.4 F 07/01/24 08:00 Pulse 74 07/01/24 08:00 Resp 16 07/01/24 08:00 BP 139/60 07/01/24 08:00 Pulse Ox 98 07/01/24 08:00 FiO2 Intake & Output 06/30/24 07/01/24 07/01/24 18:59 06:59 18:59 Intake Total 769.917 102.417 10 Output Total 200 300 600 Balance 569.917 -197.583 -590 Intake: IV 10 10 Invasive Line 3 10 10 Intake, IV Titration 769.917 92.417 Amount Diltiazem 125 mg In 119.917 92.417 Dextrose 5% in Water 100 ml @ 5 MG/HR 5 mls/hr IV .Q24H [facility] Rx#:[id number] Sodium Chloride 0.9% 1, 600 000 ml @ 50 mls/hr IV . Q20H [facility] Rx#:[id number] ceFAZolin 2 gm In 50 Dextrose 5% in Water 50 ml @ 100 mls/hr IVPB Q8HR [facility] Rx#:[id number] Oral 0 Output: Urine 200 300 600 Other: Voiding Method Indwelling Catheter Indwelling Catheter Indwelling Catheter - Labs CBC & Chem 7: 06/30/24 06:12 06/30/24 06:12 Labs: Abnormal Lab Results - Last 24 Hours (Table) 06/30/24 06/30/24 06/30/24 Range/Units 11:21 16:07 20:02 POC Glucose (mg/dL) 282 H 381 H 182 H (70-110) mg/dL 07/01/24 07/01/24 Range/Units 06:41 11:14 POC Glucose (mg/dL) 299 H 447 H (70-110) mg/dL
[2024-07-01 11:32] LABS: HGB 7.4 g/dL (12.0-15.0); MCH 32.3 pg (27.0-32.0); MCHC 32.2 g/dL (32.0-37.0); MCV 100.4 fL (80.0-97.0); Mean Platelet Volume 11.4 fL (9.5-12.2); Platelet Count 248 10*3/uL (140-440); RBC 2.29 10*6/uL (4.10-5.20); WBC 7.43 10*3/uL (4.50-10.00)
[2024-07-01 12:03] LABS: African American GFR (CKD) 28 (>60 ml/min/1.73 sqM); Anion Gap 6 mmol/L; Blood Urea Nitrogen 79 mg/dL (7-17); Calcium 9.6 mg/dL (8.4-10.2); Carbon Dioxide 26 mmol/L (22-30); Chloride 103 mmol/L (98-107); Glucose 363 mg/dL (74-99); Non-African American GFR(CKD) 25 (>60 ml/min/1.73 sqM); Potassium 4.4 mmol/L (3.5-5.1); Sodium 135 mmol/L (137-145)
[2024-07-01 13:42] VITALS: BMI 42.5
[2024-07-01 14:39] LABS: Basophils # (A) 0.01 10*3/uL (0.00-0.10); Basophils % (A) 0.1 %; HCT 22.9 % (37.2-46.3); HGB 7.2 g/dL (12.0-15.0); Lymphocytes # (A) 0.81 10*3/uL (0.90-5.00); Lymphocytes % (A) 9.6 %; MCH 31.4 pg (27.0-32.0); MCHC 31.4 g/dL (32.0-37.0); Mean Platelet Volume 10.8 fL (9.5-12.2); Monocytes # (A) 0.64 10*3/uL (0.20-1.00); Monocytes % (A) 7.6 %; Neutrophils # (A) 6.93 10*3/uL (1.80-7.70); Neutrophils % (A) 82.1 %; Platelet Count 275 10*3/uL (140-440); RBC 2.29 10*6/uL (4.10-5.20); RDW 13.9 % (11.5-14.5); WBC 8.44 10*3/uL (4.50-10.00)
--- NOTE | 2024-07-01 15:45 | P.PN ---
Subjective Progress Note Date: 07/01/24 88-year-old female with COPD (on 3 L home oxygen), diabetes, GERD, A-fib (on Eliquis), anxiety/depression, chronic leg swelling, hypothyroidism (not on medications) here for ground-level fall. Patient was reported to have tried to reach her oxygen tank from her wheelchair and she fell forward to the ground. Her daughter mentioned that she did not hit her head or lose consciousness at the time of the fall. T 98.2 F, HR 82, RR 18, BP 109/85, O2 sat 96% on 3 L NC. WBC 11.9, hemoglobin 13.3, sodium 138, potassium 4.5, bicarb 31, BUN 32, creatinine 1.11, glucose 265, AST 45, ALT 47, alk phos 155, calcium 10. CT head shows no acute intracranial hemorrhage, midline shift or mass effect. Chest x- ray showed small left pleural effusion and cardiomegaly. Pelvic and femur left x-ray showed comminuted left intertrochanteric hip fracture. Patient is admitted to Orthopedic surgery with [facility] on consultation. Overnight, patient was found to be in A-Fib RVR on telemetry. She was started on Cardizem drip and Cardiology was consulted. A-Fib RVR resolved prior to surgery. Orthopedic Sx consulted, underwent operative fixation of left intertrochanteric/subtrochanteric femur fracture with long intramedullary hip screw on 06/29. 06/30 Patient was seen and examined. Post-operatively went back into A-Fib with RVR. HR in the 140s this morning on telemetry. Family at bedside reporting confusion. On Cardizem drip at 10 mg/hr. CBC shows WBC 11.02, RBC 2.75, Hg 8.7, Hct 27.9, MCV 101.5. CMP shows BUN 65, Cr 2.33, glu 255, AST 191, ALT 222, alk phos 173, alb 2.7. UA trace protein, moderate LE with 24 WBCs. Renal US shows no obstruction and chronic medical disease. 07/01 Patient was seen and examined. Significant diarrhea today. HR in the 70s this morning on telemetry. CBC, BMP significant for RBC 2.29, Hg 7.4, Hct 23, MCV 100.4, Na 135, BUN 79, Cr 1.83, glu 363. General: no distress, appears at stated age Derm: warm, dry Head: atraumatic, normocephalic, symmetric Mouth: no lip lesion, mucus membranes moist Cardiovascular: S1 S2 irreg irreg. No murmur. Lungs: Decreased BS bilaterally, no accessory muscle use Ext: no gross muscle atrophy, no edema, no contractures Neuro: No obvious focal neurologic deficits. Psych: Confused Based on my assessment of this patient, this patient meets a high complexity level of care. A-fib with RVR: Metoprolol to 25 mg PO TID. Eliquis 2.5 mg PO BID. Echo as above. Telemetry monitoring. K > 4 and Mg > 2. Cardiology on board. 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 Lasix on hold. Improved. Renal and bladder US neg for obstruction. Bladder scan PRN. Avoid nephrotoxins. Nephrology on board. Acute metabolic encephalopathy: Likely related to delirium. Wean Dilaudid. Window side bed. Frequent re-direction. Fall precautions. Acute blood loss anemia which is a likely result of surgery. Diarrhea: Obtain C. diff. Obtain stool occult blood. 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 Lasix on hold. Improved. Renal and bladder US neg for obstruction. Bladder scan PRN. Avoid nephrotoxins. Nephrology on board. Transaminitis: Likely prerenal. Stop Lipitor. Liver US shows heterogenous liver with absent GB, CBD wnl. Type II DM with hyperkalemia: A1c 8.1. ISS with Accuchecks ACHS along with hypoglycemic precautions. Chronic hypoxic respiratory failure secondary to COPD on home oxygen 3 L: DuoNeb QID PRN. Depression and anxiety: Paroxetine 40 mg PO QD Hypothyroidism: Synthroid 75 mcg PO QD. Hyperlipidemia: Lipitor on hold as above. GERD: Protonix 40 mg PO QD. Extensive seborrheic keratosis: Possible GI malignancy. Follow-up with PCP if desired to pursue further investigation. Left intertrochanteric hip fracture managed by Orthopedic Sx. Resolved: HyperK, Leukocytosis CODE STATUS: NO CODE DVT Prophylaxis: SCD GI Prophylaxis: Protonix PO Designated medical POA if patient is not able to make medical decisions for themselves: I have reviewed the following industrial methods consultant notes: Ortho, Cardiology, Nephrology. I have reviewed the results of the following tests: CBC, BMP. I have ordered the following tests: Liver US pending. CBC and CMP in the AM. I have discussed the care of this patient with the following independent historian: Family. I have independently interpreted the following test below: I have discussed the management of this patient with the following physician: Objective - Vital Signs Vital signs: Vital Signs Temp 98.1 F 07/01/24 12:00 Pulse 74 07/01/24 12:00 Resp 16 07/01/24 12:00 BP 124/61 07/01/24 12:00 Pulse Ox 98 07/01/24 12:00 FiO2 Intake & Output 06/30/24 07/01/24 07/01/24 18:59 06:59 18:59 Intake Total 769.917 102.417 10 Output Total 200 300 600 Balance 569.917 -197.583 -590 Weight 108.862 kg Intake: IV 10 10 Invasive Line 3 10 10 Intake, IV Titration 769.917 92.417 Amount Diltiazem 125 mg In 119.917 92.417 Dextrose 5% in Water 100 ml @ 5 MG/HR 5 mls/hr IV .Q24H [facility] Rx#:[id number] Sodium Chloride 0.9% 1, 600 000 ml @ 50 mls/hr IV . Q20H [facility] Rx#:[id number] ceFAZolin 2 gm In 50 Dextrose 5% in Water 50 ml @ 100 mls/hr IVPB Q8HR [facility] Rx#:[id number] Oral 0 Output: Urine 200 300 600 Other: Voiding Method Indwelling Catheter Indwelling Catheter Indwelling Catheter # Bowel Movements 1 - Labs CBC & Chem 7: 07/01/24 14:27 07/01/24 10:51 Labs: Abnormal Lab Results - Last 24 Hours (Table) 06/30/24 06/30/24 07/01/24 Range/Units 16:07 20:02 06:41 RBC (4.10-5.20) 10*6/uL Hgb (12.0-15.0) g/dL Hct (37.2-46.3) % MCV (80.0-97.0) fL MCH (27.0-32.0) pg MCHC (32.0-37.0) g/dL Immature Gran # (0.00-0.04) 10*3/uL Lymphocytes # (0.90-5.00) 10*3/uL Eosinophils # (0.04-0.35) 10*3/uL Sodium (137-145) mmol/L BUN (7-17) mg/dL Creatinine (0.52-1.04) mg/dL Glucose (74-99) mg/dL POC Glucose (mg/dL) 381 H 182 H 299 H (70-110) mg/dL 07/01/24 07/01/24 07/01/24 Range/Units 10:51 10:51 11:14 RBC 2.29 L (4.10-5.20) 10*6/uL Hgb 7.4 L (12.0-15.0) g/dL Hct 23.0 L (37.2-46.3) % MCV 100.4 H (80.0-97.0) fL MCH 32.3 H (27.0-32.0) pg MCHC (32.0-37.0) g/dL Immature Gran # (0.00-0.04) 10*3/uL Lymphocytes # (0.90-5.00) 10*3/uL Eosinophils # (0.04-0.35) 10*3/uL Sodium 135 L (137-145) mmol/L BUN 79 H (7-17) mg/dL Creatinine 1.83 H (0.52-1.04) mg/dL Glucose 363 H (74-99) mg/dL POC Glucose (mg/dL) 447 H (70-110) mg/dL 07/01/24 Range/Units 14:27 RBC 2.29 L (4.10-5.20) 10*6/uL Hgb 7.2 L (12.0-15.0) g/dL Hct 22.9 L (37.2-46.3) % MCV 100.0 H (80.0-97.0) fL MCH (27.0-32.0) pg MCHC 31.4 L (32.0-37.0) g/dL Immature Gran # 0.05 H (0.00-0.04) 10*3/uL Lymphocytes # 0.81 L (0.90-5.00) 10*3/uL Eosinophils # 0.00 L (0.04-0.35) 10*3/uL Sodium (137-145) mmol/L BUN (7-17) mg/dL Creatinine (0.52-1.04) mg/dL Glucose (74-99) mg/dL POC Glucose (mg/dL) (70-110) mg/dL
[2024-07-01 16:08] LABS: Glucose,Whole Blood 395 mg/dL (70-110)
[2024-07-01 19:56] LABS: Glucose,Whole Blood 295 mg/dL (70-110)
[2024-07-02 06:02] LABS: Glucose,Whole Blood 279 mg/dL (70-110)
[2024-07-02 07:09] LABS: HCT 23.2 % (37.2-46.3); HGB 7.4 g/dL (12.0-15.0); MCH 32.3 pg (27.0-32.0); MCHC 31.9 g/dL (32.0-37.0); MCV 101.3 fL (80.0-97.0); Mean Platelet Volume 10.8 fL (9.5-12.2); Platelet Count 278 10*3/uL (140-440); RBC 2.29 10*6/uL (4.10-5.20); RDW 13.9 % (11.5-14.5); WBC 8.04 10*3/uL (4.50-10.00)
[2024-07-02 07:28] LABS: ALT 54 U/L (4-34); AST 99 U/L (14-36); African American GFR (CKD) 40 (>60 ml/min/1.73 sqM); Albumin 2.6 g/dL (3.5-5.0); Alkaline Phosphatase 143 U/L (38-126); Anion Gap 6 mmol/L; Blood Urea Nitrogen 74 mg/dL (7-17); Calcium 10.2 mg/dL (8.4-10.2); Carbon Dioxide 26 mmol/L (22-30); Chloride 103 mmol/L (98-107); Glucose 259 mg/dL (74-99); Non-African American GFR(CKD) 34 (>60 ml/min/1.73 sqM); Potassium 4.5 mmol/L (3.5-5.1); Sodium 135 mmol/L (137-145); Total Bilirubin 0.9 mg/dL (0.2-1.3); Total Protein 5.2 g/dL (6.3-8.2)
--- NOTE | 2024-07-02 08:01 | P.PN ---
Subjective Patient is doing relatively well per nursing. This morning she is complaining of pain in her left leg Objective - Vital Signs Vital signs: Vital Signs Temp 98.3 F 07/02/24 04:00 Pulse 87 07/02/24 04:00 Resp 16 07/02/24 04:00 BP 115/68 07/02/24 04:00 Pulse Ox 94 L 07/02/24 04:00 FiO2 Intake & Output 07/01/24 07/02/24 07/02/24 18:59 06:59 18:59 Intake Total 10 10 Output Total 600 850 Balance -590 -840 Weight 108.862 kg 58 kg Intake: IV 10 10 Invasive Line 3 10 10 Output: Urine 600 850 Uretheral (Parsons) 650 Other: Voiding Method Indwelling Catheter Indwelling Catheter # Bowel Movements 1 - Exam Patient is awake in bed. She says her leg hurts. A focused exam of the left lower extremity shows intact dressings with no drainage or strikethrough. She is moving her foot up and down - Labs CBC & Chem 7: 07/02/24 06:21 07/02/24 06:21 Labs: Abnormal Lab Results - Last 24 Hours (Table) 07/01/24 07/01/24 07/01/24 Range/Units 10:51 10:51 11:14 RBC 2.29 L (4.10-5.20) 10*6/uL Hgb 7.4 L (12.0-15.0) g/dL Hct 23.0 L (37.2-46.3) % MCV 100.4 H (80.0-97.0) fL MCH 32.3 H (27.0-32.0) pg MCHC (32.0-37.0) g/dL Immature Gran # (0.00-0.04) 10*3/uL Lymphocytes # (0.90-5.00) 10*3/uL Eosinophils # (0.04-0.35) 10*3/uL Sodium 135 L (137-145) mmol/L BUN 79 H (7-17) mg/dL Creatinine 1.83 H (0.52-1.04) mg/dL Glucose 363 H (74-99) mg/dL POC Glucose (mg/dL) 447 H (70-110) mg/dL AST (14-36) U/L ALT (4-34) U/L Alkaline Phosphatase (38-126) U/L Total Protein (6.3-8.2) g/dL Albumin (3.5-5.0) g/dL 07/01/24 07/01/24 07/01/24 Range/Units 14:27 16:04 19:52 RBC 2.29 L (4.10-5.20) 10*6/uL Hgb 7.2 L (12.0-15.0) g/dL Hct 22.9 L (37.2-46.3) % MCV 100.0 H (80.0-97.0) fL MCH (27.0-32.0) pg MCHC 31.4 L (32.0-37.0) g/dL Immature Gran # 0.05 H (0.00-0.04) 10*3/uL Lymphocytes # 0.81 L (0.90-5.00) 10*3/uL Eosinophils # 0.00 L (0.04-0.35) 10*3/uL Sodium (137-145) mmol/L BUN (7-17) mg/dL Creatinine (0.52-1.04) mg/dL Glucose (74-99) mg/dL POC Glucose (mg/dL) 395 H 295 H (70-110) mg/dL AST (14-36) U/L ALT (4-34) U/L Alkaline Phosphatase (38-126) U/L Total Protein (6.3-8.2) g/dL Albumin (3.5-5.0) g/dL 07/02/24 07/02/24 07/02/24 Range/Units 05:59 06:21 06:21 RBC 2.29 L (4.10-5.20) 10*6/uL Hgb 7.4 L (12.0-15.0) g/dL Hct 23.2 L (37.2-46.3) % MCV 101.3 H (80.0-97.0) fL MCH 32.3 H (27.0-32.0) pg MCHC 31.9 L (32.0-37.0) g/dL Immature Gran # (0.00-0.04) 10*3/uL Lymphocytes # (0.90-5.00) 10*3/uL Eosinophils # (0.04-0.35) 10*3/uL Sodium 135 L (137-145) mmol/L BUN 74 H (7-17) mg/dL Creatinine 1.38 H (0.52-1.04) mg/dL Glucose 259 H (74-99) mg/dL POC Glucose (mg/dL) 279 H (70-110) mg/dL AST 99 H (14-36) U/L ALT 54 H (4-34) U/L Alkaline Phosphatase 143 H (38-126) U/L Total Protein 5.2 L (6.3-8.2) g/dL Albumin 2.6 L (3.5-5.0) g/dL Assessment and Plan Plan: Continue treatment as outlined previously. Awaiting evaluation by physical therapy to start discharge planning. The patient will likely need discharge to subacute rehab or SNF. She is okay to discharge from an orthopedic standpoint when she is medically stable.
--- NOTE | 2024-07-02 10:56 | P.PN ---
Subjective HISTORY OF PRESENT ILLNESS: Patient is a 88 year old female with past medical history of COPD, diabetes mellitus, hypothyroidism, atrial fibrillation presented to the ED for a ground- level fall and is found to have left intertrochanteric fracture. Patient seen today for cardiology consultation for atrial fibrillation with rapid ventricular rate. Last night patient's heart rate was 110-150s on telemetry, patient was cooperative and not in distress patient was found to be in A-fib with RVR and was given diltiazem 180 mg p.o. once. A couple hours later the patient's heart rate did not improve and was administered Lopressor 5 mg IV and was transferred to [facility] with telemetry. Upon reviewing of the rhythm strip, patient was found to have long conversion pauses. Patient is known to have paroxysmal atrial fibrillation and is on Eliquis 2.5 mg p.o. twice daily and Cardizem 180 mg p.o. at bedtime at home. Vitals T 99.1 F, AL 122 bpm, RR 18, BP 108/61, SPO2 95% on 3 L oxygen via nasal cannula EKG independently interpreted as atrial fibrillation with rapid ventricular response, rate 129 bpm, QTc 479 ms Chest x-ray shows small left effusion Head and cervical spine CT shows no acute intracranial hemorrhage, midline shift or mass effect Labs show WBC 11.91, hemoglobin 13.3, platelet count 278, INR 1, potassium 4.8, magnesium 2, creatinine 0.98, AST 79, ALT 64, glucose 331 06/29 Patient seen and examined. Patient remains in a sinus rhythm. EF 55 to 60%, no pulmonary hypertension, mild mitral and tricuspid regurgitation. Blood pressure 144/68, heart rate 87, pulse ox 95% on 3 L nasal cannula. Repeat blood work reveals hemoglobin of 10.7, BUN 58 and creatinine 2.47. Orthopedics is planning for surgery later today. Patient is NPO. 06/30 Patient seen and examined. Yesterday, patient underwent IM screw to the left hip femur fracture. Patient had episode of A-fib with RVR last evening and was given Lopressor 2.5 mg IV which brought her heart rate down to 90s briefly and then she jumped back up to 140s. She has subsequently been started on Cardizem drip and is currently at 5 mg/h increased to 10 mg just moments ago for heart rate in the 136. She also received a dose of oral Lopressor 12.5 mg. Repeat blood work reveals hemoglobin of 8.7, BUN 65, creatinine 2.33. 07/01/2024 Patient examined this morning at the bedside. Patient currently denies chest pain or pressure. She denies shortness of breath. Patient is currently on a Cardizem drip at 5 mg an hour. Telemetry reveals sinus mechanism with a heart rate in the 70s. 07/02/2024 Patient examined this morning at the bedside. Patient currently denies any chest pain or pressure. She denies any shortness of breath. Telemetry reveals atrial fibrillation with a heart rate in the 80s. PHYSICAL EXAM: VITAL SIGNS: Reviewed. GENERAL: Well-developed in no acute distress. NECK: Supple. No JVD or thyromegaly LUNGS: Respirations even and unlabored. Lungs essentially clear to auscultation bilaterally. HEART: Irregular rate and rhythm. S1 and S2 heard. EXTREMITIES: Normal range of motion. No clubbing or cyanosis. Peripheral pulses intact. No lower extremity edema ASSESSMENT: Left intratrochanteric hip fracture, status post surgical intervention Paroxysmal atrial fibrillation with RVR, currently rate controlled Underlying sick sinus syndrome Type 2 diabetes COPD Hyperlipidemia Hypothyroidism Acute kidney injury PLAN: Continue metoprolol tartrate 25 mg 3 times daily Continue anticoagulation with Eliquis Continue telemetry monitoring Patient is currently stable for discharge from a cardiac perspective Further recommendations pending patient course Nurse practitioner note has been reviewed by physician. Signing provider agrees with the documented findings, assessment, and plan of care documented by MUSIC EXECUTIVE as a scribe. Objective - Vital Signs Vital signs: Vital Signs Temp 98.3 F 07/02/24 04:00 Pulse 87 07/02/24 04:00 Resp 16 07/02/24 04:00 BP 115/68 07/02/24 04:00 Pulse Ox 94 L 07/02/24 04:00 FiO2 Intake & Output 07/01/24 07/02/24 07/02/24 18:59 06:59 18:59 Intake Total 10 10 180 Output Total 600 850 Balance -590 -840 180 Weight 108.862 kg 58 kg Intake: IV 10 10 Invasive Line 3 10 10 Oral 180 Output: Urine 600 850 Uretheral (Parsons) 650 Other: Voiding Method Indwelling Catheter Indwelling Catheter # Bowel Movements 1 - Labs CBC & Chem 7: 07/02/24 06:21 07/02/24 06:21 Labs: Abnormal Lab Results - Last 24 Hours (Table) 07/01/24 07/01/24 07/01/24 Range/Units 10:51 10:51 11:14 RBC 2.29 L (4.10-5.20) 10*6/uL Hgb 7.4 L (12.0-15.0) g/dL Hct 23.0 L (37.2-46.3) % MCV 100.4 H (80.0-97.0) fL MCH 32.3 H (27.0-32.0) pg MCHC (32.0-37.0) g/dL Immature Gran # (0.00-0.04) 10*3/uL Lymphocytes # (0.90-5.00) 10*3/uL Eosinophils # (0.04-0.35) 10*3/uL Sodium 135 L (137-145) mmol/L BUN 79 H (7-17) mg/dL Creatinine 1.83 H (0.52-1.04) mg/dL Glucose 363 H (74-99) mg/dL POC Glucose (mg/dL) 447 H (70-110) mg/dL AST (14-36) U/L ALT (4-34) U/L Alkaline Phosphatase (38-126) U/L Total Protein (6.3-8.2) g/dL Albumin (3.5-5.0) g/dL 07/01/24 07/01/24 07/01/24 Range/Units 14:27 16:04 19:52 RBC 2.29 L (4.10-5.20) 10*6/uL Hgb 7.2 L (12.0-15.0) g/dL Hct 22.9 L (37.2-46.3) % MCV 100.0 H (80.0-97.0) fL MCH (27.0-32.0) pg MCHC 31.4 L (32.0-37.0) g/dL Immature Gran # 0.05 H (0.00-0.04) 10*3/uL Lymphocytes # 0.81 L (0.90-5.00) 10*3/uL Eosinophils # 0.00 L (0.04-0.35) 10*3/uL Sodium (137-145) mmol/L BUN (7-17) mg/dL Creatinine (0.52-1.04) mg/dL Glucose (74-99) mg/dL POC Glucose (mg/dL) 395 H 295 H (70-110) mg/dL AST (14-36) U/L ALT (4-34) U/L Alkaline Phosphatase (38-126) U/L Total Protein (6.3-8.2) g/dL Albumin (3.5-5.0) g/dL 07/02/24 07/02/24 07/02/24 Range/Units 05:59 06:21 06:21 RBC 2.29 L (4.10-5.20) 10*6/uL Hgb 7.4 L (12.0-15.0) g/dL Hct 23.2 L (37.2-46.3) % MCV 101.3 H (80.0-97.0) fL MCH 32.3 H (27.0-32.0) pg MCHC 31.9 L (32.0-37.0) g/dL Immature Gran # (0.00-0.04) 10*3/uL Lymphocytes # (0.90-5.00) 10*3/uL Eosinophils # (0.04-0.35) 10*3/uL Sodium 135 L (137-145) mmol/L BUN 74 H (7-17) mg/dL Creatinine 1.38 H (0.52-1.04) mg/dL Glucose 259 H (74-99) mg/dL POC Glucose (mg/dL) 279 H (70-110) mg/dL AST 99 H (14-36) U/L ALT 54 H (4-34) U/L Alkaline Phosphatase 143 H (38-126) U/L Total Protein 5.2 L (6.3-8.2) g/dL Albumin 2.6 L (3.5-5.0) g/dL
--- NOTE | 2024-07-02 11:37 | P.PN ---
Subjective Patient is seen for follow-up for acute kidney injury. Status post fixation of left intertrochanteric/subtrochanteric femur fracture on 06/29/2024 Patient is sleeping but arousable. Serum creatinine improved to 1.3 today. Objective - Vital Signs Vital signs: Vital Signs Temp 98.1 F 07/02/24 11:07 Pulse 89 07/02/24 11:07 Resp 17 07/02/24 11:07 BP 134/58 07/02/24 11:07 Pulse Ox 97 07/02/24 11:07 FiO2 Intake & Output 07/01/24 07/02/24 07/02/24 18:59 06:59 18:59 Intake Total 10 10 180 Output Total 600 850 Balance -590 -840 180 Weight 108.862 kg 58 kg Intake: IV 10 10 Invasive Line 3 10 10 Oral 180 Output: Urine 600 850 Uretheral (Parsons) 650 Other: Voiding Method Indwelling Catheter Indwelling Catheter # Bowel Movements 1 - Exam Patient is awake, comfortable Answering simple questions Examination of the heart S1 and S2 Examination of the lungs bilateral breath sounds are heard Abdomen is soft obese Examination lower extremity shows no significant edema - Labs CBC & Chem 7: 07/02/24 06:21 07/02/24 06:21 Labs: Abnormal Lab Results - Last 24 Hours (Table) 07/01/24 07/01/24 07/01/24 Range/Units 10:51 14:27 16:04 RBC 2.29 L (4.10-5.20) 10*6/uL Hgb 7.2 L (12.0-15.0) g/dL Hct 22.9 L (37.2-46.3) % MCV 100.0 H (80.0-97.0) fL MCH (27.0-32.0) pg MCHC 31.4 L (32.0-37.0) g/dL Immature Gran # 0.05 H (0.00-0.04) 10*3/uL Lymphocytes # 0.81 L (0.90-5.00) 10*3/uL Eosinophils # 0.00 L (0.04-0.35) 10*3/uL Sodium 135 L (137-145) mmol/L BUN 79 H (7-17) mg/dL Creatinine 1.83 H (0.52-1.04) mg/dL Glucose 363 H (74-99) mg/dL POC Glucose (mg/dL) 395 H (70-110) mg/dL AST (14-36) U/L ALT (4-34) U/L Alkaline Phosphatase (38-126) U/L Total Protein (6.3-8.2) g/dL Albumin (3.5-5.0) g/dL 07/01/24 07/02/24 07/02/24 Range/Units 19:52 05:59 06:21 RBC 2.29 L (4.10-5.20) 10*6/uL Hgb 7.4 L (12.0-15.0) g/dL Hct 23.2 L (37.2-46.3) % MCV 101.3 H (80.0-97.0) fL MCH 32.3 H (27.0-32.0) pg MCHC 31.9 L (32.0-37.0) g/dL Immature Gran # (0.00-0.04) 10*3/uL Lymphocytes # (0.90-5.00) 10*3/uL Eosinophils # (0.04-0.35) 10*3/uL Sodium (137-145) mmol/L BUN (7-17) mg/dL Creatinine (0.52-1.04) mg/dL Glucose (74-99) mg/dL POC Glucose (mg/dL) 295 H 279 H (70-110) mg/dL AST (14-36) U/L ALT (4-34) U/L Alkaline Phosphatase (38-126) U/L Total Protein (6.3-8.2) g/dL Albumin (3.5-5.0) g/dL 07/02/24 Range/Units 06:21 RBC (4.10-5.20) 10*6/uL Hgb (12.0-15.0) g/dL Hct (37.2-46.3) % MCV (80.0-97.0) fL MCH (27.0-32.0) pg MCHC (32.0-37.0) g/dL Immature Gran # (0.00-0.04) 10*3/uL Lymphocytes # (0.90-5.00) 10*3/uL Eosinophils # (0.04-0.35) 10*3/uL Sodium 135 L (137-145) mmol/L BUN 74 H (7-17) mg/dL Creatinine 1.38 H (0.52-1.04) mg/dL Glucose 259 H (74-99) mg/dL POC Glucose (mg/dL) (70-110) mg/dL AST 99 H (14-36) U/L ALT 54 H (4-34) U/L Alkaline Phosphatase 143 H (38-126) U/L Total Protein 5.2 L (6.3-8.2) g/dL Albumin 2.6 L (3.5-5.0) g/dL Assessment and Plan Assessment: 1. Acute kidney injury, ATN secondary to low blood pressure and volume depletion, nonoliguric. UA shows trace protein moderate blood, ultrasound of the kidneys is unremarkable with no evidence of obstruction. 2. Status post fall and left intertrochanteric fracture, status post surgery on 06/29/2024 3. Mild hyperkalemia associated with acute kidney injury 4. Paroxysmal A-fib status post Cardizem drip now maintained on Lopressor with controlled heart rate 5. Elevated liver enzymes most likely related to some degree of hypotension, not on statins. Improved Plan: Encouraged to increase oral intake. Continue off of diuretics Repeat labs in a.m. Avoid any nephrotoxic agents.
--- NOTE | 2024-07-02 12:01 | CT ---
EXAMINATION TYPE: CT brain wo con DATE OF EXAM: 07/02/2024 11:50 AM COMPARISON: 06/28/2024 CLINICAL INDICATION: Female, 88 years old with history of lethargy, Lethargy, TECHNIQUE: Examination was done in axial plane without intravenous contrast. Coronal and sagittal r econstructions performed. CT DLP: 1170.4 mGycm, Automated exposure control for dose reduction was used. FINDINGS: There is no evidence of acute intracranial hemorrhage, acute ischemic changes, mass, mass-effect, or extra-axial fluid collection. There is no effacement of cerebral sulci or basal subarachnoid cister ns. There is no hydrocephalus. There is no midline shift. Tran-white matter distinction is preserv ed. Atherosclerotic calcifications in the bilateral carotid siphons. Redemonstrated partially empty sella . Benign basal ganglia calcifications. Moderate patchy white matter hypodensities in both cerebral he mispheres. The patient is edentulous. Complete opacification left mastoid air cells with some opacification exte nding into the left middle ear cavity. Leftward nasal septal deviation. Paranasal sinuses appear well pneumatized. The globes are intact. IMPRESSION: 1. Moderate patchy burden of chronic small vessel ischemic disease. No acute intracranial abnormality seen. 2. Fluid trapped on the left, correlate for any localizing pain to exclude an otomastoiditis. [facility], , 07/02/2024 11:58 AM
--- NOTE | 2024-07-02 12:08 | P.PN ---
Subjective Progress Note Date: 07/02/24 88-year-old female with COPD (on 3 L home oxygen), diabetes, GERD, A-fib (on Eliquis), anxiety/depression, chronic leg swelling, hypothyroidism (not on medications) here for ground-level fall. Patient was reported to have tried to reach her oxygen tank from her wheelchair and she fell forward to the ground. Her daughter mentioned that she did not hit her head or lose consciousness at the time of the fall. T 98.2 F, HR 82, RR 18, BP 109/85, O2 sat 96% on 3 L NC. WBC 11.9, hemoglobin 13.3, sodium 138, potassium 4.5, bicarb 31, BUN 32, creatinine 1.11, glucose 265, AST 45, ALT 47, alk phos 155, calcium 10. CT head shows no acute intracranial hemorrhage, midline shift or mass effect. Chest x- ray showed small left pleural effusion and cardiomegaly. Pelvic and femur left x-ray showed comminuted left intertrochanteric hip fracture. Patient is admitted to Orthopedic surgery with [facility] on consultation. Overnight, patient was found to be in A-Fib RVR on telemetry. She was started on Cardizem drip and Cardiology was consulted. A-Fib RVR resolved prior to surgery. Orthopedic Sx consulted, underwent operative fixation of left intertrochanteric/subtrochanteric femur fracture with long intramedullary hip screw on 06/29. 06/30 Patient was seen and examined. Post-operatively went back into A-Fib with RVR. HR in the 140s this morning on telemetry. Family at bedside reporting confusion. On Cardizem drip at 10 mg/hr. CBC shows WBC 11.02, RBC 2.75, Hg 8.7, Hct 27.9, MCV 101.5. CMP shows BUN 65, Cr 2.33, glu 255, AST 191, ALT 222, alk phos 173, alb 2.7. UA trace protein, moderate LE with 24 WBCs. Renal US shows no obstruction and chronic medical disease. 07/01 Patient was seen and examined. Significant diarrhea today. HR in the 70s this morning on telemetry. CBC, BMP significant for RBC 2.29, Hg 7.4, Hct 23, MCV 100.4, Na 135, BUN 79, Cr 1.83, glu 363. 07/02 Patient was seen and examined. More lethargic and sleepy today. Daughter reports difficulty swallowing solids. HR in the 80s this morning on telemetry. CBC and CMP significant for RBC 2.29, Hg 7.4, Hct 23.2, MCV 101.3, Na 135, BUN 74, Cr 1.38, glu 259, AST 99, ALT 54, alk phos 143, alb 2.6. C. diff neg. Stool occult neg. General: no distress, appears at stated age Derm: warm, dry Head: atraumatic, normocephalic, symmetric Mouth: no lip lesion, mucus membranes moist Cardiovascular: S1 S2 irreg irreg. No murmur. Lungs: Decreased BS bilaterally, no accessory muscle use Ext: no gross muscle atrophy, no edema, no contractures Neuro: No obvious focal neurologic deficits. Psych: Confused Based on my assessment of this patient, this patient meets a high complexity level of care. Acute metabolic encephalopathy: Likely related to delirium. DC Dilaudid and [place]. Window side bed. Frequent re-direction. Fall precautions. Obtain CT head to rule out intracranial process and ST to evaluate swallow. A-fib with RVR: Metoprolol to 25 mg PO TID. Eliquis 2.5 mg PO BID. Echo as above. Telemetry monitoring. K > 4 and Mg > 2. Cardiology on board. 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 Lasix on hold. Improved. Renal and bladder US neg for obstruction. Bladder scan PRN. Avoid nephrotoxins. Nephrology on board. Acute blood loss anemia which is a likely result of surgery. Diarrhea: C. diff. and stool occult blood negative. Transaminitis: Improved. Likely prerenal. Stop Lipitor. Liver US shows heterogenous liver with absent GB, CBD wnl. Type II DM with hyperkalemia: A1c 8.1. ISS with Accuchecks ACHS along with hypoglycemic precautions. Chronic hypoxic respiratory failure secondary to COPD on home oxygen 3 L: DuoNeb QID PRN. Depression and anxiety: Paroxetine 40 mg PO QD Hypothyroidism: Synthroid 75 mcg PO QD. Hyperlipidemia: Lipitor on hold as above. GERD: Protonix 40 mg PO QD. Extensive seborrheic keratosis: Possible GI malignancy. Follow-up with PCP if desired to pursue further investigation. Left intertrochanteric hip fracture managed by Orthopedic Sx. Resolved: HyperK, Leukocytosis CODE STATUS: NO CODE DVT Prophylaxis: SCD GI Prophylaxis: Protonix PO Designated medical POA if patient is not able to make medical decisions for themselves: I have reviewed the following decorating consultant notes: Ortho, Cardiology, Nephrology. I have reviewed the results of the following tests: CBC, CMP, stool occult, C. diff I have ordered the following tests: CT head. I have discussed the care of this patient with the following independent historian: Family. Case management. I have independently interpreted the following test below: I have discussed the management of this patient with the following physician: Objective - Vital Signs Vital signs: Vital Signs Temp 98.1 F 07/02/24 11:07 Pulse 89 07/02/24 11:07 Resp 17 07/02/24 11:07 BP 134/58 07/02/24 11:07 Pulse Ox 97 07/02/24 11:07 FiO2 Intake & Output 07/01/24 07/02/24 07/02/24 18:59 06:59 18:59 Intake Total 10 10 190 Output Total 600 850 Balance -590 -840 190 Weight 108.862 kg 58 kg Intake: IV 10 10 10 Invasive Line 3 10 10 10 Oral 180 Output: Urine 600 850 Uretheral (Parsons) 650 Other: Voiding Method Indwelling Catheter Indwelling Catheter # Bowel Movements 1 - Labs CBC & Chem 7: 07/02/24 06:21 07/02/24 06:21 Labs: Abnormal Lab Results - Last 24 Hours (Table) 07/01/24 07/01/24 07/01/24 Range/Units 10:51 14:27 16:04 RBC 2.29 L (4.10-5.20) 10*6/uL Hgb 7.2 L (12.0-15.0) g/dL Hct 22.9 L (37.2-46.3) % MCV 100.0 H (80.0-97.0) fL MCH (27.0-32.0) pg MCHC 31.4 L (32.0-37.0) g/dL Immature Gran # 0.05 H (0.00-0.04) 10*3/uL Lymphocytes # 0.81 L (0.90-5.00) 10*3/uL Eosinophils # 0.00 L (0.04-0.35) 10*3/uL Sodium 135 L (137-145) mmol/L BUN 79 H (7-17) mg/dL Creatinine 1.83 H (0.52-1.04) mg/dL Glucose 363 H (74-99) mg/dL POC Glucose (mg/dL) 395 H (70-110) mg/dL AST (14-36) U/L ALT (4-34) U/L Alkaline Phosphatase (38-126) U/L Total Protein (6.3-8.2) g/dL Albumin (3.5-5.0) g/dL 07/01/24 07/02/24 07/02/24 Range/Units 19:52 05:59 06:21 RBC 2.29 L (4.10-5.20) 10*6/uL Hgb 7.4 L (12.0-15.0) g/dL Hct 23.2 L (37.2-46.3) % MCV 101.3 H (80.0-97.0) fL MCH 32.3 H (27.0-32.0) pg MCHC 31.9 L (32.0-37.0) g/dL Immature Gran # (0.00-0.04) 10*3/uL Lymphocytes # (0.90-5.00) 10*3/uL Eosinophils # (0.04-0.35) 10*3/uL Sodium (137-145) mmol/L BUN (7-17) mg/dL Creatinine (0.52-1.04) mg/dL Glucose (74-99) mg/dL POC Glucose (mg/dL) 295 H 279 H (70-110) mg/dL AST (14-36) U/L ALT (4-34) U/L Alkaline Phosphatase (38-126) U/L Total Protein (6.3-8.2) g/dL Albumin (3.5-5.0) g/dL 07/02/24 Range/Units 06:21 RBC (4.10-5.20) 10*6/uL Hgb (12.0-15.0) g/dL Hct (37.2-46.3) % MCV (80.0-97.0) fL MCH (27.0-32.0) pg MCHC (32.0-37.0) g/dL Immature Gran # (0.00-0.04) 10*3/uL Lymphocytes # (0.90-5.00) 10*3/uL Eosinophils # (0.04-0.35) 10*3/uL Sodium 135 L (137-145) mmol/L BUN 74 H (7-17) mg/dL Creatinine 1.38 H (0.52-1.04) mg/dL Glucose 259 H (74-99) mg/dL POC Glucose (mg/dL) (70-110) mg/dL AST 99 H (14-36) U/L ALT 54 H (4-34) U/L Alkaline Phosphatase 143 H (38-126) U/L Total Protein 5.2 L (6.3-8.2) g/dL Albumin 2.6 L (3.5-5.0) g/dL
[2024-07-02 12:12] LABS: Glucose,Whole Blood 386 mg/dL (70-110)
[2024-07-02 16:03] LABS: Glucose,Whole Blood 393 mg/dL (70-110)
[2024-07-02 20:00] LABS: Glucose,Whole Blood 409 mg/dL (70-110)
[2024-07-02 20:27] VITALS: RESP 16
[2024-07-02] MEDS: INSULIN GLARGINE (LANTUS) 100 UNIT/ML SYR SQ SCH (21:45)
[2024-07-02] MEDS: INSULIN LISPRO (HumaLOG) 100 UNIT/ML 10 mL VL SQ SCH (21:45)
[2024-07-03 05:56] LABS: Glucose,Whole Blood 238 mg/dL (70-110)
[2024-07-03 07:53] LABS: HCT 22.8 % (37.2-46.3); HGB 7.3 g/dL (12.0-15.0); MCH 32.2 pg (27.0-32.0); MCV 100.4 fL (80.0-97.0); Mean Platelet Volume 10.5 fL (9.5-12.2); Platelet Count 316 10*3/uL (140-440); RBC 2.27 10*6/uL (4.10-5.20); RDW 13.9 % (11.5-14.5); WBC 7.08 10*3/uL (4.50-10.00)
[2024-07-03 08:17] LABS: ALT 69 U/L (4-34); AST 89 U/L (14-36); African American GFR (CKD) 54 (>60 ml/min/1.73 sqM); Albumin 2.6 g/dL (3.5-5.0); Alkaline Phosphatase 143 U/L (38-126); Anion Gap 2 mmol/L; Blood Urea Nitrogen 56 mg/dL (7-17); Carbon Dioxide 31 mmol/L (22-30); Chloride 103 mmol/L (98-107); Glucose 212 mg/dL (74-99); Non-African American GFR(CKD) 47 (>60 ml/min/1.73 sqM); Potassium 4.6 mmol/L (3.5-5.1); Sodium 136 mmol/L (137-145); Total Protein 5.1 g/dL (6.3-8.2)
[2024-07-03 08:48] VITALS: TEMP 98.8
[2024-07-03 11:16] LABS: Glucose,Whole Blood 187 mg/dL (70-110)
[2024-07-03 11:33] VITALS: BP 146/75; PULSE 90
--- NOTE | 2024-07-03 11:37 | P.PN ---
Subjective HISTORY OF PRESENT ILLNESS: Patient is a 88 year old female with past medical history of COPD, diabetes mellitus, hypothyroidism, atrial fibrillation presented to the ED for a ground- level fall and is found to have left intertrochanteric fracture. Patient seen today for cardiology consultation for atrial fibrillation with rapid ventricular rate. Last night patient's heart rate was 110-150s on telemetry, patient was cooperative and not in distress patient was found to be in A-fib with RVR and was given diltiazem 180 mg p.o. once. A couple hours later the patient's heart rate did not improve and was administered Lopressor 5 mg IV and was transferred to [facility] with telemetry. Upon reviewing of the rhythm strip, patient was found to have long conversion pauses. Patient is known to have paroxysmal atrial fibrillation and is on Eliquis 2.5 mg p.o. twice daily and Cardizem 180 mg p.o. at bedtime at home. Vitals T 99.1 F, DC 122 bpm, RR 18, BP 108/61, SPO2 95% on 3 L oxygen via nasal cannula EKG independently interpreted as atrial fibrillation with rapid ventricular response, rate 129 bpm, QTc 479 ms Chest x-ray shows small left effusion Head and cervical spine CT shows no acute intracranial hemorrhage, midline shift or mass effect Labs show WBC 11.91, hemoglobin 13.3, platelet count 278, INR 1, potassium 4.8, magnesium 2, creatinine 0.98, AST 79, ALT 64, glucose 331 06/29 Patient seen and examined. Patient remains in a sinus rhythm. EF 55 to 60%, no pulmonary hypertension, mild mitral and tricuspid regurgitation. Blood pressure 144/68, heart rate 87, pulse ox 95% on 3 L nasal cannula. Repeat blood work reveals hemoglobin of 10.7, BUN 58 and creatinine 2.47. Orthopedics is planning for surgery later today. Patient is NPO. 06/30 Patient seen and examined. Yesterday, patient underwent IM screw to the left hip femur fracture. Patient had episode of A-fib with RVR last evening and was given Lopressor 2.5 mg IV which brought her heart rate down to 90s briefly and then she jumped back up to 140s. She has subsequently been started on Cardizem drip and is currently at 5 mg/h increased to 10 mg just moments ago for heart rate in the 136. She also received a dose of oral Lopressor 12.5 mg. Repeat blood work reveals hemoglobin of 8.7, BUN 65, creatinine 2.33. 07/01/2024 Patient examined this morning at the bedside. Patient currently denies chest pain or pressure. She denies shortness of breath. Patient is currently on a Cardizem drip at 5 mg an hour. Telemetry reveals sinus mechanism with a heart rate in the 70s. 07/02/2024 Patient examined this morning at the bedside. Patient currently denies any chest pain or pressure. She denies any shortness of breath. Telemetry reveals atrial fibrillation with a heart rate in the 80s. 07/03/2024 Patient examined this morning at the bedside. Patient currently denies chest pain or pressure. She denies shortness of breath. She remains in atrial fibri llation with controlled ventricular rate. PHYSICAL EXAM: VITAL SIGNS: Reviewed. GENERAL: Well-developed in no acute distress. NECK: Supple. No JVD or thyromegaly LUNGS: Respirations even and unlabored. Lungs essentially clear to auscultation bilaterally. HEART: Irregular rate and rhythm. S1 and S2 heard. EXTREMITIES: Normal range of motion. No clubbing or cyanosis. Peripheral pulses intact. No lower extremity edema ASSESSMENT: Left intratrochanteric hip fracture, status post surgical intervention Paroxysmal atrial fibrillation with RVR, currently rate controlled Underlying sick sinus syndrome Type 2 diabetes COPD Hyperlipidemia Hypothyroidism Acute kidney injury PLAN: Continue metoprolol tartrate 25 mg 3 times daily Continue anticoagulation with Eliquis Continue telemetry monitoring Patient is currently stable for discharge from a cardiac perspective Further recommendations pending patient course Nurse practitioner note has been reviewed by physician. Signing provider agrees with the documented findings, assessment, and plan of care documented by [employer] TECHNICIAN as a scribe. Objective - Vital Signs Vital signs: Vital Signs Temp 98.8 F 07/03/24 08:33 Pulse 85 07/03/24 08:33 Resp 16 07/03/24 08:33 BP 137/66 07/03/24 08:33 Pulse Ox 99 07/03/24 08:33 FiO2 Intake & Output 07/02/24 07/03/24 07/03/24 18:59 06:59 18:59 Intake Total 380 10 250 Output Total 900 475 Balance -520 -465 250 Intake: IV 20 10 10 Invasive Line 3 20 10 10 Oral 360 240 Output: Urine 900 475 Other: Voiding Method Indwelling Catheter Indwelling Catheter # Voids 1 # Bowel Movements 1 - Labs CBC & Chem 7: 07/03/24 06:36 07/03/24 06:36 Labs: Abnormal Lab Results - Last 24 Hours (Table) 07/02/24 07/02/24 07/02/24 Range/Units 12:10 16:01 19:58 RBC (4.10-5.20) 10*6/uL Hgb (12.0-15.0) g/dL Hct (37.2-46.3) % MCV (80.0-97.0) fL MCH (27.0-32.0) pg Sodium (137-145) mmol/L Carbon Dioxide (22-30) mmol/L BUN (7-17) mg/dL Creatinine (0.52-1.04) mg/dL Glucose (74-99) mg/dL POC Glucose (mg/dL) 386 H 393 H 409 H (70-110) mg/dL AST (14-36) U/L ALT (4-34) U/L Alkaline Phosphatase (38-126) U/L Total Protein (6.3-8.2) g/dL Albumin (3.5-5.0) g/dL 07/03/24 07/03/24 07/03/24 Range/Units 05:54 06:36 06:36 RBC 2.27 L (4.10-5.20) 10*6/uL Hgb 7.3 L (12.0-15.0) g/dL Hct 22.8 L (37.2-46.3) % MCV 100.4 H (80.0-97.0) fL MCH 32.2 H (27.0-32.0) pg Sodium 136 L (137-145) mmol/L Carbon Dioxide 31 H (22-30) mmol/L BUN 56 H (7-17) mg/dL Creatinine 1.07 H (0.52-1.04) mg/dL Glucose 212 H (74-99) mg/dL POC Glucose (mg/dL) 238 H (70-110) mg/dL AST 89 H (14-36) U/L ALT 69 H (4-34) U/L Alkaline Phosphatase 143 H (38-126) U/L Total Protein 5.1 L (6.3-8.2) g/dL Albumin 2.6 L (3.5-5.0) g/dL
--- NOTE | 2024-07-03 11:42 | P.DS ---
Providers Date of admission: 06/28/24 02:09 Expected date of discharge: 07/03/24 Attending physician: Herminio Barnhart Consults: 06/28/24 02:02 Consult Physician Urgent Consulting Provider: Molina Meléndez Consult Reason/Comments: Medical Management Do you want consulting provider notified?: Already Contacted 06/28/24 07:51 Consult Physician Routine Consulting Provider: Max Mims Consult Reason/Comments: afib RVR Do you want consulting provider notified?: Yes 06/29/24 07:58 Consult Physician Routine Consulting Provider: Jahaira Kwon Consult Reason/Comments: EMMANUEL on CKD Do you want consulting provider notified?: Yes Primary care physician: Balwinder Bebeto [facility] Course: 88-year-old female with COPD (on 3 L home oxygen), diabetes, GERD, A-fib (on Eliquis), anxiety/depression, chronic leg swelling, hypothyroidism (not on medications) here for ground-level fall. Patient was reported to have tried to reach her oxygen tank from her wheelchair and she fell forward to the ground. Her daughter mentioned that she did not hit her head or lose consciousness at the time of the fall. T 98.2 F, HR 82, RR 18, BP 109/85, O2 sat 96% on 3 L NC. WBC 11.9, hemoglobin 13.3, sodium 138, potassium 4.5, bicarb 31, BUN 32, creatinine 1.11, glucose 265, AST 45, ALT 47, alk phos 155, calcium 10. CT head shows no acute intracranial hemorrhage, midline shift or mass effect. Chest x- ray showed small left pleural effusion and cardiomegaly. Pelvic and femur left x-ray showed comminuted left intertrochanteric hip fracture. Patient is admitted to Orthopedic surgery with [facility] on consultation. Overnight, patient was found to be in A-Fib RVR on telemetry. She was started on Cardizem drip and Cardiology was consulted. A-Fib RVR resolved prior to surgery. Orthopedic Sx consulted, underwent operative fixation of left intertrochanteric/subtrochanteric femur fracture with long intramedullary hip screw on 06/29. 06/30 Patient was seen and examined. Post-operatively went back into A-Fib with RVR. HR in the 140s this morning on telemetry. Family at bedside reporting confusion. On Cardizem drip at 10 mg/hr. CBC shows WBC 11.02, RBC 2.75, Hg 8.7, Hct 27.9, MCV 101.5. CMP shows BUN 65, Cr 2.33, glu 255, AST 191, ALT 222, alk phos 173, alb 2.7. UA trace protein, moderate LE with 24 WBCs. Renal US shows no obstruction and chronic medical disease. 07/01 Patient was seen and examined. Significant diarrhea today. HR in the 70s this morning on telemetry. CBC, BMP significant for RBC 2.29, Hg 7.4, Hct 23, MCV 100.4, Na 135, BUN 79, Cr 1.83, glu 363. 07/02 Patient was seen and examined. More lethargic and sleepy today. Daughter reports difficulty swallowing solids. HR in the 80s this morning on telemetry. CBC and CMP significant for RBC 2.29, Hg 7.4, Hct 23.2, MCV 101.3, Na 135, BUN 74, Cr 1.38, glu 259, AST 99, ALT 54, alk phos 143, alb 2.6. C. diff neg. Stool occult neg. 07/03 Patient was seen and examined. HR in the 80s this morning on telemetry. At baseline 3L NC. Confusion has been ongoing since surgery. CT head ordered yesterday showed no acute intracranial abnormality. Discussed with ST, mini eval performed, recommending NDD1 pureed diet with 1:1 supervision and aspiration precautions until mentation improves. Discharge Plan: Plans for [facility] today. NDD1 pureed diet with 1:1 supervision and aspiration precautions until mentation improves. Continue Metoprolol 25 mg PO TID and stop Cardizem 180 mg PO QHS. Follow up with PCP within 1-2 days of discharge and Orthopedic Sx within 3 weeks of discharge. General: no distress, appears at stated age Derm: warm, dry Head: atraumatic, normocephalic, symmetric Mouth: no lip lesion, mucus membranes moist Cardiovascular: S1 S2 irreg irreg. No murmur. Lungs: Decreased BS bilaterally, no accessory muscle use Ext: no gross muscle atrophy, no edema, no contractures Neuro: No obvious focal neurologic deficits. Psych: Confused Discharge Diagnosis: Acute metabolic encephalopathy likely related to delirium. A-fib with RVR EMMANUEL on likely CKD stage II Acute blood loss anemia which is a likely result of surgery. Diarrhea Transaminitis Type II DM with hyperkalemia Chronic hypoxic respiratory failure secondary to COPD on home oxygen 3 L Depression and anxiety Hypothyroidism Hyperlipidemia GERD Extensive seborrheic keratosis Left intertrochanteric hip fracture managed by Orthopedic Sx Resolved: HyperK, Leukocytosis This complex discharge took 35 minutes to complete and coordinate. Patient Condition at Discharge: Stable Plan - Discharge Summary Discharge Rx Participant: Yes New Discharge Prescriptions: New Magnesium Hydroxide [Milk of Magnesia] 2,400 mg PO DAILY PRN ml PRN Reason: Constipation Sennosides-Docusate Sodium [Senokot-S] 2 each PO HS tab Ipratropium-Albuterol Nebulize [Duoneb 0.5 mg-3 mg/3 ml Soln] 3 ml INHALATION RT-QID PRN each PRN Reason: Shortness Of Breath Or Wheezing Metoprolol Tartrate [Lopressor] 25 mg PO TID tab Continue Pedi Multivit No.25/Folic Acid [Flintstones Multivit Chew Tab] 300 mcg PO DAILY Eye Health Complex Supplement 1 tab PO DAILY Apixaban [Eliquis] 2.5 mg PO BID Insulin Aspart (Niacinamide) [Fiasp 100 Unit/ml Flextouch Pen] 10 units SQ TID-W/MEALS Insulin Glargine,Hum.rec.anlog [Lantus Solostar Pen] 45 units SQ W/BRKFST Calcium Carbonate [Calcium] 600 mg PO DAILY Omeprazole 40 mg PO BID PARoxetine HCL 40 mg PO DAILY Lovastatin [Mevacor] 20 mg PO HS Furosemide [Lasix] 40 mg PO DAILY Levothyroxine Sodium [Synthroid] 75 mcg PO AC-BRKFST Discontinued Diltiazem Cd [Cardizem CD] 180 mg PO HS Discharge Medication List Calcium Carbonate [Calcium] 600 mg PO DAILY 01/09/23 [History] Eye Health Complex Supplement 1 tab PO DAILY 01/09/23 [History] Lovastatin [Mevacor] 20 mg PO HS 01/09/23 [History] Omeprazole 40 mg PO BID 01/09/23 [History] PARoxetine HCL 40 mg PO DAILY 01/09/23 [History] Pedi Multivit No.25/Folic Acid [Flintstones Multivit Chew Tab] 300 mcg PO DAILY 01/09/23 [History] Apixaban [Eliquis] 2.5 mg PO BID 06/28/24 [History] Furosemide [Lasix] 40 mg PO DAILY 06/28/24 [History] Insulin Aspart (Niacinamide) [Fiasp 100 Unit/ml Flextouch Pen] 10 units SQ TID- W/MEALS 06/28/24 [History] Insulin Glargine,Hum.rec.anlog [Lantus Solostar Pen] 45 units SQ W/BRKFST 06/28/24 [History] Levothyroxine Sodium [Synthroid] 75 mcg PO AC-BRKFST 06/28/24 [History] Ipratropium-Albuterol Nebulize [Duoneb 0.5 mg-3 mg/3 ml Soln] 3 ml INHALATION RT-QID PRN each 07/03/24 [Rx] Magnesium Hydroxide [Milk of Magnesia] 2,400 mg PO DAILY PRN ml 07/03/24 [Rx] Metoprolol Tartrate [Lopressor] 25 mg PO TID tab 07/03/24 [Rx] Sennosides-Docusate Sodium [Senokot-S] 2 each PO HS tab 07/03/24 [Rx] Follow up Appointment(s)/Referral(s): Balwinder Tate MD [Primary Care Provider] - 1-2 days Herminio Barnhart MD [Medical Doctor] - 2 Weeks Activity/Diet/Wound Care/Special Instructions: 1. Weight-bear as tolerated on your operative extremity unless instructed otherwise. Use a walker or other assistive device to ambulate. 2. Leave surgical dressing in place. If your dressing becomes saturated with blood, there is drainage, or the dressing becomes loose please contact the office. 3. It is okay to shower with your surgical dressing, but do not submerge in water (no hot tubs, bath's, swimming etc.) 4. Make sure to take her blood clot prevention medication as prescribed (aspirin, Eliquis, Xarelto, and Plavix are commonly prescribed medications for blood clot prevention) 5. While taking [place] or Percocet for pain make sure you're taking a stool softener (Colace) and drink lots of water. 6. Keep all follow-up appointments as scheduled. You will usually be seen in 1-2 weeks following surgery. 7. Please contact the office with any questions or concerns [phone] Discharge Disposition: TRANSFER TO SNF/ECF
--- NOTE | 2024-07-03 12:17 | P.PN ---
Subjective Patient is seen for follow-up for acute kidney injury. Status post fixation of left intertrochanteric/subtrochanteric femur fracture on 06/29/2024 Patient is awake, no significant issues noted. Serum creatinine improved to 1.0 today. Objective - Vital Signs Vital signs: Vital Signs Temp 98.8 F 07/03/24 08:33 Pulse 90 07/03/24 11:32 Resp 16 07/03/24 11:32 BP 146/75 07/03/24 11:32 Pulse Ox 100 07/03/24 11:32 FiO2 Intake & Output 07/02/24 07/03/24 07/03/24 18:59 06:59 18:59 Intake Total 380 10 250 Output Total 900 475 Balance -520 -465 250 Intake: IV 20 10 10 Invasive Line 3 20 10 10 Oral 360 240 Output: Urine 900 475 Other: Voiding Method Indwelling Catheter Indwelling Catheter Indwelling Catheter # Voids 1 # Bowel Movements 1 - Exam Patient is awake, comfortable Answering simple questions Examination of the heart S1 and S2 Examination of the lungs bilateral breath sounds are heard Abdomen is soft obese Examination lower extremity shows no significant edema - Labs CBC & Chem 7: 07/03/24 06:36 07/03/24 06:36 Labs: Abnormal Lab Results - Last 24 Hours (Table) 07/02/24 07/02/24 07/03/24 Range/Units 16:01 19:58 05:54 RBC (4.10-5.20) 10*6/uL Hgb (12.0-15.0) g/dL Hct (37.2-46.3) % MCV (80.0-97.0) fL MCH (27.0-32.0) pg Sodium (137-145) mmol/L Carbon Dioxide (22-30) mmol/L BUN (7-17) mg/dL Creatinine (0.52-1.04) mg/dL Glucose (74-99) mg/dL POC Glucose (mg/dL) 393 H 409 H 238 H (70-110) mg/dL AST (14-36) U/L ALT (4-34) U/L Alkaline Phosphatase (38-126) U/L Total Protein (6.3-8.2) g/dL Albumin (3.5-5.0) g/dL 07/03/24 07/03/24 07/03/24 Range/Units 06:36 06:36 11:14 RBC 2.27 L (4.10-5.20) 10*6/uL Hgb 7.3 L (12.0-15.0) g/dL Hct 22.8 L (37.2-46.3) % MCV 100.4 H (80.0-97.0) fL MCH 32.2 H (27.0-32.0) pg Sodium 136 L (137-145) mmol/L Carbon Dioxide 31 H (22-30) mmol/L BUN 56 H (7-17) mg/dL Creatinine 1.07 H (0.52-1.04) mg/dL Glucose 212 H (74-99) mg/dL POC Glucose (mg/dL) 187 H (70-110) mg/dL AST 89 H (14-36) U/L ALT 69 H (4-34) U/L Alkaline Phosphatase 143 H (38-126) U/L Total Protein 5.1 L (6.3-8.2) g/dL Albumin 2.6 L (3.5-5.0) g/dL Assessment and Plan Assessment: 1. Acute kidney injury, ATN secondary to low blood pressure and volume depletion, nonoliguric. UA shows trace protein moderate blood, ultrasound of the kidneys is unremarkable with no evidence of obstruction. 2. Status post fall and left intertrochanteric fracture, status post surgery on 06/29/2024 3. Mild hyperkalemia associated with acute kidney injury 4. Paroxysmal A-fib status post Cardizem drip now maintained on Lopressor with controlled heart rate 5. Elevated liver enzymes most likely related to some degree of hypotension, not on statins. Improved Plan: Encouraged to increase oral intake. Continue off of diuretics Avoid any nephrotoxic agents.
== END 2024-07-03 15:39 | DRG 480 ==
LOC: EC 23:45 → 4SSUR 06-28 02:09 → 3SCARD 06-28 06:01
PROVIDERS: ADMIT Orthopaedic Surgery; ATTEND Orthopaedic Surgery
PROC: 0QS706Z Reposition Left Upper Femur with Intramedullary Internal Fixation Device, Open Approach (ICD-10-PCS; principal; 2024-06-29 11:30)
DX: S72.142A Displaced intertrochanteric fracture of left femur, initial encounter for closed fracture (principal); G93.41 Metabolic encephalopathy; N17.0 Acute kidney failure with tubular necrosis; Z68.41 Body mass index [BMI] 40.0-44.9, adult; D62 Acute posthemorrhagic anemia; I49.5 Sick sinus syndrome; E11.22 Type 2 diabetes mellitus with diabetic chronic kidney disease; D72.828 Other elevated white blood cell count; I48.0 Paroxysmal atrial fibrillation; E86.9 Volume depletion, unspecified; S72.22XA Displaced subtrochanteric fracture of left femur, initial encounter for closed fracture; J44.9 Chronic obstructive pulmonary disease, unspecified; F32.A Depression, unspecified; E03.9 Hypothyroidism, unspecified; J96.11 Chronic respiratory failure with hypoxia; I48.20 Chronic atrial fibrillation, unspecified; E66.01 Morbid (severe) obesity due to excess calories; Z79.4 Long term (current) use of insulin; Z66 Do not resuscitate; I95.9 Hypotension, unspecified; N18.2 Chronic kidney disease, stage 2 (mild); R29.6 Repeated falls; H91.90 Unspecified hearing loss, unspecified ear; E87.5 Hyperkalemia; L82.1 Other seborrheic keratosis; I51.7 Cardiomegaly; F41.9 Anxiety disorder, unspecified; E78.5 Hyperlipidemia, unspecified; K21.9 Gastro-esophageal reflux disease without esophagitis; M79.89 Other specified soft tissue disorders; R74.01 Elevation of levels of liver transaminase levels; W05.0XXA Fall from non-moving wheelchair, initial encounter; Z99.81 Dependence on supplemental oxygen; Z79.01 Long term (current) use of anticoagulants; Z79.899 Other long term (current) drug therapy; Z79.890 Hormone replacement therapy; Z87.891 Personal history of nicotine dependence; Z91.81 History of falling; Z79.83 Long term (current) use of bisphosphonates; Z99.3 Dependence on wheelchair
CPT/HCPCS: 36415; 70450; 71045; 72125; 72170; 73501; 76705; 76770; 80048; 80053; 81001; 82140; 82272; 83036; 83735; 85025; 85027; 85610; 85730; 87324; 93306; 96374; 99285